=== PATIENT | male | born 1960 | race Caucasian/White ===

== ENCOUNTER 2018-02-24 15:04 | Inpatient (IN) | payer MEDICARE, MEDICAID ==
--- NOTE | 2018-02-24 15:17 | ED Physician Chart ---
ED Chief Complaint/HPI - Patient Information Date Seen:: 02/24/18 Time Seen:: 15:00 Chief Complaint:: AMS History of Present Illness:: onset x 2 days of ALOC and AMS with abnormal labs today; no report of trauma, H/ As, S/T, neck pain, C/P, SOB, Abd. Pain, A/N/V/D/C, fever, chills, or urinary s/ s Historian:: Patient, EMS Review:: Nurse's Note Reviewed, Old Chart Reviewed, EMS run form Reviewed ED Review of Systems - Review of Systems General/Constitutional: No fever, No chills, No weight loss, No weakness, No diaphoresis, No edema, No loss of appetite Skin: No skin lesions, No rash, No bruising Head: No headache, No light-headedness Eyes: No loss of vision, No pain, No diplopia ENT: No earache, No nasal drainage, No sore throat, No tinnitus Neck: No neck pain, No swelling, No thyromegaly, No stiffness, No mass noted Cardio Vascular: No chest pain, No palpitations, No PND, No orthopnea, No edema Pulmonary: No SOB, No cough, No sputum, No wheezing GI: No nausea, No vomiting, No diarrhea, No pain, No melena, No hematochezia, No constipation, No hematemesis G/U: No dysuria, No frequency, No hematuria, No nacturia Musculoskeletal: No bone or joint pain, No back pain, No muscle pain Endocrine: No polyuria, No polydipsia Psychiatric: Prior psych history, Depression, Anxiety, No suicidal ideation, No homicidal ideation, No auditory hallucination, No visual hallucination Hematopoietic: No bruising, No lymphadenopathy Allergic/Immuno: No urticaria, No angioedema Neurological: No syncope, No focal symptoms, No weakness, No paresthesia, No headache, No seizure, No dizziness, No confusion, No vertigo ED Past Medical History - Past Medical History Past Medical History: HTN, Dyslipidemia, PUD/GERD, ESRD, Seizures Family History: HTN Social History: Non Smoker, No Alcohol, No Drug Use, Single, Care Facility Surgical History: None Psychiatricy History: Schizophrenia, Bipolar Medication: Reviewed Family Medical History - Family Member Mother History Unknown: Yes ED Physical Exam - Physical Examination General/Constitutional: Awake, Well-developed, well-nourished, Alert, No distress, GCS 15, Non-toxic appearing, Ambulatory Head: Atraumatic Eyes: Lids, conjuctiva normal, PERRL, EOMI Skin: Nl inspection, No rash, No skin lesions, No ecchymosis, Well hydrated, No lymphadenopathy ENMT: External ears, nose nl, TM canals nl, Nasal exam nl, Lips, teeth, gums nl , Oropharynx nl, Tonsils nl Neck: Nontender, Full ROM w/o pain, No JVD, No nuchal rigidity, No bruit, No mass, No stridor Respiratory: Nl effort/Exclusion, Clear to Auscultation, No Wheeze/Rhonchi/Rales Cardio Vascular: RRR, No murmur, gallop, rubs, NL S1 S2, Carotid/Femoral/Distal pulses equal bilaterally GI: No tenderness/rebounding/guarding, No organomegaly, No hernia, Normal BS's, Nondistended, No mass/bruits, No McBurney tenderness, Rectum exam nl : No CVA tenderness Extremities: No tenderness or effusion, Full ROM, normal strength in all extremities, No edema, Normal digits & nails Neuro/Psych: Alert/oriented, DTR's symmetric, Normal sensory exam, Normal motor strength, Judgement/insight normal, Mood normal, Normal gait, No focal deficits Misc: Normal back, No paraspinal tenderness ED Labs/Radiology/EKG Results - Lab Results Comments:: Na+: 120; H/H: 10/31.1; U/A: + Leukocytes - Radiology Results Comments:: NAD - EKG Interpretations EKG Time:: 15:32 Rate & Rhythm: 80; NSR Comments:: non-specific st-t changes ED Septic Shock - . Is Septic Shock (SBP<90, OR Lactate>4 mmol\L) present?: No ED Reassessment (Disposition) - Reassessment Reassessment Condition:: Improved - Diagnosis Diagnosis:: Dx: Hyponatremia; Dehydration; Anemia; UTI; ALOC; AMS - Aftercare/Follow up Instructions Aftercare/Follow-Up Instructions:: Counseled pt regarding lab results/diagnosis & need follow up, Counseled pt & family regarding lab results/diagnosis & need follow up - Patient Disposition Discharge/Transfer:: Acute Care w/in this hosp Accepting Physician:: Dr. Mejia Time Called:: 1700 Time Responded:: 17:00 Admitted to:: Telemetry Spoke to:: Dr. Mejia Admitting Medical Physician:: Dr. Mejia Condition at Disposition:: Stable, Improved
[2018-02-24 15:40] LABS: % EOSINOPHILS 1.9 % (0.0-5.0); % LYMPHOCYTES 21.7 % (20.0-50.0); % MONOCYTES 6.7 % (2.0-10.0); % NEUTROPHILS 68.7 % (40.0-80.0); BASOPHILE ABSOLUTE 0.1 Th/cumm (0-0.2); EOSINOPHILE ABSOLUTE 0.2 Th/cmm (0.1-0.4); HEMATOCRIT 30.1 % (41.0-60); LYMPHOCYTE ABSOLUTE 1.8 Th/cmm (1.5-3.0); MEAN CELL VOLUME 83.4 fl (80-99); MEAN CORPUSCULAR HEMOGLOBIN 27.6 pg (26.0-30.0); MEAN CORPUSCULAR HGB CONC 33.1 pg (28.0-36.0); MONOCYTE ABSOLUTE 0.6 Th/cmm (0.3-1.0); NEUTROPHILE ABSOLUTE 5.6 Th/cmm (1.8-8.0); PLATELET COUNT 388 Th/cmm (150-400); RED BLOOD COUNT 3.61 Mil/cmm (4.30-5.70); RED CELL DISTRIBUTION WIDTH 13.7 % (11.5-20.0); WHITE BLOOD COUNT 8.3 Th/cmm (4.8-10.8)
[2018-02-24 15:53] LABS: INR 0.95 (0.5-1.4); PROTHROMBIN TIME (TEST) 9.9 SECONDS (9.5-11.5)
[2018-02-24 16:07] LABS: ALB/GLOB RATIO 1.6 (1.0-1.8); ALBUMIN 4.1 gm/dL (4.2-5.5); ALKALINE PHOSPHATASE 123 U/L (34-104); BILIRUBIN,TOTAL 0.3 mg/dL (0.3-1.0); BUN - UREA NITROGEN 24 mg/dL (7-25); CALCIUM SERUM 9.2 mg/dL (8.6-10.3); CARBON DIOXIDE 21.9 mEq/L (21.0-31.0); CHLORIDE 89 mEq/L (98-107); CREATININE - SERUM 1.5 mg/dL (0.7-1.3); CREATININE KINASE 69 U/L (30-223); GFR AFRICAN-AMERICAN > 60.0 ml/min (>90); GFR NON AFRICAN-AMERICAN 51.1 ml/min; GLUCOSE 86 mg/dL (70-105); POTASSIUM SERUM 3.9 mEq/L (3.5-5.1); SGOT 15 U/L (13-39); SGPT/ALT 11 U/L (7-52); TOTAL PROTEIN,SERUM 6.6 gm/dL (6.0-8.3)
[2018-02-24 16:26] LABS: SODIUM SERUM 120 mEq/L (136-145)
[2018-02-24 16:54] LABS: URINE MICROSCOPIC INDICATED? YES; URINE SOURCE MIDSTREAM
[2018-02-24 16:55] LABS: URINE BILIRUBIN NEGATIVE (NEGATIVE); URINE BLOOD TRACE (NEGATIVE); URINE GLUCOSE (UA) NEGATIVE (NEGATIVE); URINE KETONE NEGATIVE (NEGATIVE); URINE LEUKOCYTE ESTERASE SMALL (NEGATIVE); URINE NITRATE NEGATIVE (NEGATIVE); URINE PH 5.5 (4.6 - 8.0); URINE PROTEIN NEGATIVE (NEGATIVE); URINE UROBILINOGEN 0.2 E.U./dL (0.2 - 1.0)
[2018-02-24] MEDS ORDERED: Sodium Chloride 0.9% 1,000 ML IV ONE (16:56)
[2018-02-24 17:16] LABS: AMYLASE SERUM 61 U/L (29-103); LIPASE 35 U/L (11-82)
[2018-02-24 17:25] LABS: URINE CLARITY CLEAR (CLEAR); URINE COLOR YELLOW
[2018-02-24] MEDS ORDERED: cefTRIAXone 1 GM in Sodium Chloride 0.9% 50 ML IV ONE (17:36)
[2018-02-24] MEDS ORDERED: 0.9% NS w/20 mEq KCL 1,000 ML IV SCH (18:00)
[2018-02-24 18:42] LABS: URINE BACTERIA NONE SEEN /hpf (NONE SEEN); URINE EPITHELIAL CELLS NONE SEEN /lpf (FEW); URINE RBC 0-2 /hpf (0-5); URINE WBC 0-2 /hpf (0-5)
[2018-02-24] MEDS: D5-0.9NS w/KCL 20mEq 1,000 ML IV SCH (21:11)
[2018-02-24] MEDS ORDERED: Magnesium Hydroxide (MOM) 30 mL UDC PO PRN (21:28)
[2018-02-24] MEDS ORDERED: Non-Formulary Item 1 EA (Epoetin Alfa [Procrit] 10,000 UNIT) SUBQ SCH (21:30)
[2018-02-24] MEDS: INSULIN ASPART SLIDING SCALE 100 UNITS/ML UNIT SUBQ SCH (21:46)
--- NOTE | 2018-02-25 00:58 | History & Physical ---
ADMIT DATE: 02/24/2018 CHIEF COMPLAINT: Generalized weakness. HISTORY OF PRESENT ILLNESS: The patient is a 57-year-old male with long history of diabetes mellitus, hypertension, seizure disorder, psychosis, chronic obstructive pulmonary disease, transferred to the Emergency Room at [facility] for treatment. Initial workup was significant for hyponatremia and dehydration. The patient admitted to telemetry, started on IV fluid. The patient denies any chest pain, any shortness of breath, any nausea, vomiting, fever or chills. No dysuria, hematuria. PAST MEDICAL HISTORY: Significant for hypertension, diabetes mellitus, seizure disorder, psychosis, dementia, COPD, hyperlipidemia. PAST SURGICAL HISTORY: No recent surgery. ALLERGIES: None. MEDICATIONS: Follow admission reconciliation. SOCIAL HISTORY: Chronic smoker. No alcohol or drugs. FAMILY HISTORY: Noncontributory. REVIEW OF SYSTEMS: IMMUNE SYSTEM: No history of chronic immune disorder. CARDIOVASCULAR SYSTEM: History of hypertension. No coronary artery disease. ENDOCRINE SYSTEM: He has diabetes mellitus. No thyroid problem. GASTROINTESTINAL SYSTEM: No upper or lower GI bleeding. NEUROLOGICAL SYSTEM: He has history of seizure disorder. MUSCULOSKELETAL SYSTEM: No muscular dystrophy. HEMATOLOGICAL SYSTEM: He has chronic anemia. PHYSICAL EXAMINATION: GENERAL: He is awake, alert, mildly confused. VITAL SIGNS: Temperature 98.4, heart rate 80, blood pressure 153/77. HEENT: Normocephalic. Pupils reactive to light and accommodation. Sclerae are clear. NECK: Supple. Negative for lymphadenopathy, JVD, or bruit. CHEST: Entry of air bilaterally mildly diminished. No wheezing. HEART: S1, S2. No murmur or gallop rhythm. ABDOMEN: Soft, bowel sounds positive. EXTREMITIES: No edema. NEUROLOGIC: He is awake, alert, mildly confused. No focal motor or sensory deficits. Cranial nerves 2-12 are intact. LABORATORY DATA: White blood cells 8.3, hemoglobin 10.0, hematocrit 30.1. Sodium 120, potassium 3.9, BUN 24, creatinine 0.5. ASSESSMENT: 1. Hyponatremia. 2. Hypertension. 3. Diabetes mellitus. 4. Seizure disorder. 5. Chronic obstructive pulmonary disease. 6. Psychosis. 7. Hyperlipidemia. PLAN: The patient admitted to telemetry under Dr. Mejia's service. Start him on NS with 20 mEq at 75 mL per hour, 1800-kilocalorie diet, sliding scale with regular insulin coverage. ____ patient will resume his medication. CBC, CMP for tomorrow. ____ level in a.m. The patient is a full code. JOB# [id number]
[2018-02-25 06:38] LABS: % BASOPHILS 0.5 % (0.0-2.0); % EOSINOPHILS 1.8 % (0.0-5.0); % LYMPHOCYTES 20.3 % (20.0-50.0); % MONOCYTES 7.5 % (2.0-10.0); % NEUTROPHILS 69.9 % (40.0-80.0); EOSINOPHILE ABSOLUTE 0.1 Th/cmm (0.1-0.4); HEMATOCRIT 32.9 % (41.0-60); LYMPHOCYTE ABSOLUTE 1.6 Th/cmm (1.5-3.0); MEAN CELL VOLUME 83.1 fl (80-99); MEAN CORPUSCULAR HEMOGLOBIN 27.7 pg (26.0-30.0); MEAN CORPUSCULAR HGB CONC 33.4 pg (28.0-36.0); MEAN PLATELET VOLUME 6.8 fl; MONOCYTE ABSOLUTE 0.6 Th/cmm (0.3-1.0); NEUTROPHILE ABSOLUTE 5.6 Th/cmm (1.8-8.0); PLATELET COUNT 376 Th/cmm (150-400); RED BLOOD COUNT 3.96 Mil/cmm (4.30-5.70); WHITE BLOOD COUNT 7.9 Th/cmm (4.8-10.8)
[2018-02-25 06:57] LABS: ALB/GLOB RATIO 1.5 (1.0-1.8); ALBUMIN 4.1 gm/dL (4.2-5.5); ALKALINE PHOSPHATASE 144 U/L (34-104); ANION GAP 13.6 (7.0-16.0); BILIRUBIN,TOTAL 0.2 mg/dL (0.3-1.0); BUN - UREA NITROGEN 26 mg/dL (7-25); CALCIUM SERUM 9.4 mg/dL (8.6-10.3); CARBON DIOXIDE 20.5 mEq/L (21.0-31.0); CHLORIDE 97 mEq/L (98-107); CREATININE - SERUM 1.4 mg/dL (0.7-1.3); GFR AFRICAN-AMERICAN > 60.0 ml/min (>90); GFR NON AFRICAN-AMERICAN 55.3 ml/min; GLUCOSE 103 mg/dL (70-105); PHENYTOIN < 2.5 ug/ml (10.0-20.0); POTASSIUM SERUM 4.1 mEq/L (3.5-5.1); SGOT 14 U/L (13-39); SGPT/ALT 10 U/L (7-52); SODIUM SERUM 127 mEq/L (136-145); TOTAL PROTEIN,SERUM 6.8 gm/dL (6.0-8.3)
[2018-02-25] MEDS ORDERED: Epoetin Alfa 20000 Units/mL Vial SUBQ SCH (07:00)
--- NOTE | 2018-02-25 07:13 | Diagnostic Imaging Report ---
Portable chest x-ray History: Pain Allowing for portable technique the heart size is normal. No focal pulmonary parenchymal processes. No hilar or mediastinal abnormalities. Impression: No acute abnormalities.
[2018-02-25] MEDS ORDERED: CRANBERRY FRUIT EXTRACT PO SCH (09:00)
[2018-02-25] MEDS: INSULIN ASPART SLIDING SCALE 100 UNITS/ML UNIT SUBQ SCH ×4 (09:06→21:46)
[2018-02-25] MEDS: Lactulose 10 Gm/15 mL 30mL UDC PO SCH ×2 (09:16→16:34)
[2018-02-25] MEDS: Nicotine 21 mg/24 hr Tdm TD SCH (09:17)
[2018-02-25] MEDS: Ferrous Sulfate 325 MG TAB PO SCH (09:17)
[2018-02-25] MEDS: D5-0.9NS w/KCL 20mEq 1,000 ML IV SCH ×2 (09:33→23:12)
--- NOTE | 2018-02-25 18:52 | Internal Medicine Prog Note ---
Internal Medicine Subjective - Subjective Service Date: 02/25/18 Patient seen and examined:: without staff Patient is:: arousable, in bed Per staff patient has:: no adverse event Internal Medicine Objective - Results Result Diagrams: 02/25/18 06:04 02/25/18 06:04 Recent Labs: Laboratory Last Values WBC 7.9 Th/cmm (4.8-10.8) 02/25/18 06:04 RBC 3.96 Mil/cmm (4.30-5.70) L 02/25/18 06:04 Hgb 11.0 gm/dL (12-16) L 02/25/18 06:04 Hct 32.9 % (41.0-60) L 02/25/18 06:04 MCV 83.1 fl (80-99) 02/25/18 06:04 MCH 27.7 pg (26.0-30.0) 02/25/18 06:04 MCHC Differential 33.4 pg (28.0-36.0) 02/25/18 06:04 RDW 14.0 % (11.5-20.0) 02/25/18 06:04 Plt Count 376 Th/cmm (150-400) 02/25/18 06:04 MPV 6.8 fl 02/25/18 06:04 Neutrophils % 69.9 % (40.0-80.0) 02/25/18 06:04 Lymphocytes % 20.3 % (20.0-50.0) 02/25/18 06:04 Monocytes % 7.5 % (2.0-10.0) 02/25/18 06:04 Eosinophils % 1.8 % (0.0-5.0) 02/25/18 06:04 Basophils % 0.5 % (0.0-2.0) 02/25/18 06:04 PT 9.9 SECONDS (9.5-11.5) 02/24/18 15:30 INR 0.95 (0.5-1.4) 02/24/18 15:30 PTT (Actin FS) 26.1 SECONDS (26.0-38.0) 02/24/18 15:30 Sodium 127 mEq/L (136-145) L 02/25/18 06:04 Potassium 4.1 mEq/L (3.5-5.1) 02/25/18 06:04 Chloride 97 mEq/L (98-107) L 02/25/18 06:04 Carbon Dioxide 20.5 mEq/L (21.0-31.0) L 02/25/18 06:04 Anion Gap 13.6 (7.0-16.0) 02/25/18 06:04 BUN 26 mg/dL (7-25) H 02/25/18 06:04 Creatinine 1.4 mg/dL (0.7-1.3) H 02/25/18 06:04 Est GFR ( Amer) > 60.0 ml/min (>90) 02/25/18 06:04 Est GFR (Non-Af Amer) 55.3 ml/min 02/25/18 06:04 BUN/Creatinine Ratio 18.6 02/25/18 06:04 Glucose 103 mg/dL (70-105) 02/25/18 06:04 POC Glucose 112 MG/DL (70 - 105) H 02/25/18 16:38 Whole Bld Lactic Acid 0.44 mmol/L (0.60-1.99) L 02/24/18 15:30 Calcium 9.4 mg/dL (8.6-10.3) 02/25/18 06:04 Total Bilirubin 0.2 mg/dL (0.3-1.0) L 02/25/18 06:04 AST 14 U/L (13-39) 02/25/18 06:04 ALT 10 U/L (7-52) 02/25/18 06:04 Alkaline Phosphatase 144 U/L (34-104) H 02/25/18 06:04 Creatine Kinase 69 U/L (30-223) 02/24/18 15:30 Troponin I 0.01 ng/mL (0.01-0.05) 02/24/18 15:30 Total Protein 6.8 gm/dL (6.0-8.3) 02/25/18 06:04 Albumin 4.1 gm/dL (4.2-5.5) L 02/25/18 06:04 Globulin 2.7 gm/dL 02/25/18 06:04 Albumin/Globulin Ratio 1.5 (1.0-1.8) 02/25/18 06:04 Amylase 61 U/L (29-103) 02/24/18 15:30 Lipase 35 U/L (11-82) 02/24/18 15:30 Urine Source MIDSTREAM 02/24/18 15:42 Urine Color YELLOW 02/24/18 15:42 Urine Clarity CLEAR (CLEAR) 02/24/18 15:42 Urine pH 5.5 (4.6 - 8.0) 02/24/18 15:42 Ur Specific [place] <= 1.005 (1.005-1.030) 02/24/18 15:42 Urine Protein NEGATIVE mg/dL (NEGATIVE) 02/24/18 15:42 Urine Glucose (UA) NEGATIVE mg/dL (NEGATIVE) 02/24/18 15:42 Urine Ketones NEGATIVE mg/dL (NEGATIVE) 02/24/18 15:42 Urine Blood TRACE (NEGATIVE) 02/24/18 15:42 Urine Nitrate NEGATIVE (NEGATIVE) 02/24/18 15:42 Urine Bilirubin NEGATIVE (NEGATIVE) 02/24/18 15:42 Urine Urobilinogen 0.2 E.U./dL (0.2 - 1.0) 02/24/18 15:42 Ur Leukocyte Esterase SMALL (NEGATIVE) H 02/24/18 15:42 Urine RBC 0-2 /hpf (0-5) H 02/24/18 15:42 Urine WBC 0-2 /hpf (0-5) 02/24/18 15:42 Ur Epithelial Cells NONE SEEN /lpf (FEW) 02/24/18 15:42 Urine Bacteria NONE SEEN /hpf (NONE SEEN) 02/24/18 15:42 Phenytoin < 2.5 ug/ml (10.0-20.0) L 02/25/18 06:04 - Physical Exam Vitals and I&O: Vital Signs Temp 98.3 F 02/25/18 15:26 Pulse 91 02/25/18 16:39 Resp 18 02/25/18 15:26 BP 138/81 02/25/18 16:39 Pulse Ox 97 02/25/18 15:26 Intake & Output 02/24/18 02/25/18 02/25/18 18:59 06:59 18:59 Intake Total 1000 927.5 Output Total 1500 2350 Balance -1500 -1350 927.5 Weight (lbs) 83.461 kg 89.925 kg Intake: Intake, IV Amount 927.5 D5-0.9NS w/KCL 20mEq 1, 927.5 000 ml @ 75 mls/hr IV . [id number] [facility] Rx#:[id number] Oral 1000 Output: Urine 1500 2350 Other: # Bowel Movements 0 Weight Source Estimated Bedscale Active Medications: Current Medications Amlodipine Besylate (Norvasc) 10 mg PO DAILY [facility] Stop: 04/26/18 08:59 Last Admin: 02/25/18 09:16 Dose: 10 mg Atorvastatin Calcium (Lipitor) 10 mg PO HS [facility] Stop: 04/26/18 20:59 Clozapine (Clozaril) 100 mg PO BID [facility]; Protocol Stop: 04/26/18 08:59 Last Admin: 02/25/18 16:35 Dose: 100 mg Clozapine (Clozaril) 200 mg PO HS [facility]; Protocol Stop: 04/26/18 20:59 Docusate Sodium (Colace) 250 mg PO BID [facility] Stop: 04/26/18 08:59 Last Admin: 02/25/18 16:34 Dose: 250 mg Epoetin Pankaj (Epogen) 10,000 units SUBQ Fr@1400 [facility] Stop: 04/26/18 06:59 Ferrous Sulfate (Iron) 325 mg PO DAILY [facility] Stop: 04/26/18 08:59 Last Admin: 02/25/18 09:17 Dose: 325 mg Gemfibrozil (Lopid) 600 mg PO BID [facility] Stop: 04/26/18 08:59 Last Admin: 02/25/18 16:35 Dose: 600 mg Glipizide (Glucotrol) 5 mg PO DAILY [facility] Stop: 04/26/18 08:59 Last Admin: 02/25/18 09:17 Dose: 5 mg Haloperidol (Haldol) 5 mg PO DAILY [facility]; Protocol Stop: 04/26/18 08:59 Last Admin: 02/25/18 09:17 Dose: 5 mg Haloperidol (Haldol) 10 mg PO HS [facility]; Protocol Stop: 04/26/18 20:59 Hydralazine HCl (Apresoline) 25 mg PO TID [facility] Stop: 04/26/18 08:59 Last Admin: 02/25/18 16:39 Dose: 25 mg Potassium Chloride/Dextrose/Sod Cl (D5-0.9ns W/Kcl 20meq) 1,000 mls @ 75 mls/ hr IV .[id number] [facility] Stop: 04/25/18 20:29 Last Admin: 02/25/18 09:33 Dose: 75 mls/hr Insulin Aspart (Novolog Insulin Sliding Scale) 0 units SUBQ ACHS [facility]; Protocol Stop: 04/25/18 20:59 Last Admin: 02/25/18 16:43 Dose: Not Given Lactulose (Cephulac) 30 gm PO BID [facility] Stop: 04/26/18 08:59 Last Admin: 02/25/18 16:34 Dose: 30 gm Levetiracetam (Keppra) 500 mg PO BID [facility] Stop: 04/26/18 08:59 Last Admin: 02/25/18 16:34 Dose: 500 mg Magnesium Hydroxide (Milk Of Magnesia) 30 ml PO DAILY PRN PRN Reason: Constipation Stop: 04/25/18 21:27 Metoprolol Tartrate (Lopressor) 25 mg PO BID [facility] Stop: 04/26/18 08:59 Last Admin: 02/25/18 16:35 Dose: 25 mg Nicotine (Nicotine Transdermal System) 21 mg TD DAILY [facility] Stop: 04/26/18 08:59 Last Admin: 02/25/18 09:17 Dose: 21 mg Phenytoin (Dilantin) 100 mg PO BID [facility] Stop: 04/26/18 08:59 Last Admin: 02/25/18 16:35 Dose: 100 mg Sodium Chloride (Nacl Tab) 1 gm PO BID [facility] Stop: 04/26/18 08:59 Last Admin: 02/25/18 16:34 Dose: 1 gm Sodium Polystyrene Sulfonate (Kayexalate) 10 gm PO DAILY [facility] Stop: 04/26/18 08:59 Last Admin: 02/25/18 09:16 Dose: 10 gm General: alert HEENT: NC/AT, PERRLA, anicteric sclerae, throat clear Neck: Supple, No JVD, No thyromegaly, +2 carotid pulse wo bruit, No LAD Cardiovascular: Normal S1, Normal S2, without murmur Abdomen: non-tender Extremities: clear Neurological: no change Internal Medicine Assmt/Plan - Assessment Assessment: 1.HYPONATREMIA. 2.DM. 3.HTN. 4.PSYCHOSIS. - Plan Plan: CHEM 16 IN AM.
[2018-02-25] MEDS: Atorvastatin Calcium 10 MG TAB PO SCH (20:29)
[2018-02-26 05:46] LABS: ALB/GLOB RATIO 1.5 (1.0-1.8); ALBUMIN 4.3 gm/dL (4.2-5.5); ALKALINE PHOSPHATASE 143 U/L (34-104); ANION GAP 12.9 (7.0-16.0); BILIRUBIN,TOTAL 0.3 mg/dL (0.3-1.0); BUN - UREA NITROGEN 26 mg/dL (7-25); CARBON DIOXIDE 21.8 mEq/L (21.0-31.0); CHLORIDE 99 mEq/L (98-107); CREATININE - SERUM 1.3 mg/dL (0.7-1.3); GFR AFRICAN-AMERICAN > 60.0 ml/min (>90); GFR NON AFRICAN-AMERICAN > 60.0 ml/min; GLUCOSE 91 mg/dL (70-105); POTASSIUM SERUM 4.7 mEq/L (3.5-5.1); SGOT 14 U/L (13-39); SGPT/ALT 11 U/L (7-52); SODIUM SERUM 129 mEq/L (136-145); TOTAL PROTEIN,SERUM 7.2 gm/dL (6.0-8.3)
[2018-02-26] MEDS: INSULIN ASPART SLIDING SCALE 100 UNITS/ML UNIT SUBQ SCH ×4 (06:39→21:38)
[2018-02-26] MEDS: Nicotine 21 mg/24 hr Tdm TD SCH (08:02)
[2018-02-26] MEDS: Lactulose 10 Gm/15 mL 30mL UDC PO SCH ×2 (08:05→16:50)
[2018-02-26] MEDS: Ferrous Sulfate 325 MG TAB PO SCH (08:06)
[2018-02-26] MEDS: D5-0.9NS w/KCL 20mEq 1,000 ML IV SCH (12:37)
--- NOTE | 2018-02-26 17:11 | Internal Medicine Prog Note ---
Internal Medicine Subjective - Subjective Service Date: 02/26/18 Patient seen and examined:: with staff (HE FEELS BETTER) Patient is:: awake, verbal, in bed, talking, confused Per staff patient has:: no adverse event Internal Medicine Objective - Results Result Diagrams: 02/25/18 06:04 02/26/18 05:05 Recent Labs: Laboratory Last Values WBC 7.9 Th/cmm (4.8-10.8) 02/25/18 06:04 RBC 3.96 Mil/cmm (4.30-5.70) L 02/25/18 06:04 Hgb 11.0 gm/dL (12-16) L 02/25/18 06:04 Hct 32.9 % (41.0-60) L 02/25/18 06:04 MCV 83.1 fl (80-99) 02/25/18 06:04 MCH 27.7 pg (26.0-30.0) 02/25/18 06:04 MCHC Differential 33.4 pg (28.0-36.0) 02/25/18 06:04 RDW 14.0 % (11.5-20.0) 02/25/18 06:04 Plt Count 376 Th/cmm (150-400) 02/25/18 06:04 MPV 6.8 fl 02/25/18 06:04 Neutrophils % 69.9 % (40.0-80.0) 02/25/18 06:04 Lymphocytes % 20.3 % (20.0-50.0) 02/25/18 06:04 Monocytes % 7.5 % (2.0-10.0) 02/25/18 06:04 Eosinophils % 1.8 % (0.0-5.0) 02/25/18 06:04 Basophils % 0.5 % (0.0-2.0) 02/25/18 06:04 PT 9.9 SECONDS (9.5-11.5) 02/24/18 15:30 INR 0.95 (0.5-1.4) 02/24/18 15:30 PTT (Actin FS) 26.1 SECONDS (26.0-38.0) 02/24/18 15:30 Sodium 129 mEq/L (136-145) L 02/26/18 05:05 Potassium 4.7 mEq/L (3.5-5.1) 02/26/18 05:05 Chloride 99 mEq/L (98-107) 02/26/18 05:05 Carbon Dioxide 21.8 mEq/L (21.0-31.0) 02/26/18 05:05 Anion Gap 12.9 (7.0-16.0) 02/26/18 05:05 BUN 26 mg/dL (7-25) H 02/26/18 05:05 Creatinine 1.3 mg/dL (0.7-1.3) 02/26/18 05:05 Est GFR ( Amer) > 60.0 ml/min (>90) 02/26/18 05:05 Est GFR (Non-Af Amer) > 60.0 ml/min 02/26/18 05:05 BUN/Creatinine Ratio 20.0 02/26/18 05:05 Glucose 91 mg/dL (70-105) 02/26/18 05:05 POC Glucose 98 MG/DL (70 - 105) 02/26/18 16:37 Whole Bld Lactic Acid 0.44 mmol/L (0.60-1.99) L 02/24/18 15:30 Calcium 10.0 mg/dL (8.6-10.3) 02/26/18 05:05 Total Bilirubin 0.3 mg/dL (0.3-1.0) 02/26/18 05:05 AST 14 U/L (13-39) 02/26/18 05:05 ALT 11 U/L (7-52) 02/26/18 05:05 Alkaline Phosphatase 143 U/L (34-104) H 02/26/18 05:05 Creatine Kinase 69 U/L (30-223) 02/24/18 15:30 Troponin I 0.01 ng/mL (0.01-0.05) 02/24/18 15:30 Total Protein 7.2 gm/dL (6.0-8.3) 02/26/18 05:05 Albumin 4.3 gm/dL (4.2-5.5) 02/26/18 05:05 Globulin 2.9 gm/dL 02/26/18 05:05 Albumin/Globulin Ratio 1.5 (1.0-1.8) 02/26/18 05:05 Amylase 61 U/L (29-103) 02/24/18 15:30 Lipase 35 U/L (11-82) 02/24/18 15:30 Urine Source MIDSTREAM 02/24/18 15:42 Urine Color YELLOW 02/24/18 15:42 Urine Clarity CLEAR (CLEAR) 02/24/18 15:42 Urine pH 5.5 (4.6 - 8.0) 02/24/18 15:42 Ur Specific [place] <= 1.005 (1.005-1.030) 02/24/18 15:42 Urine Protein NEGATIVE mg/dL (NEGATIVE) 02/24/18 15:42 Urine Glucose (UA) NEGATIVE mg/dL (NEGATIVE) 02/24/18 15:42 Urine Ketones NEGATIVE mg/dL (NEGATIVE) 02/24/18 15:42 Urine Blood TRACE (NEGATIVE) 02/24/18 15:42 Urine Nitrate NEGATIVE (NEGATIVE) 02/24/18 15:42 Urine Bilirubin NEGATIVE (NEGATIVE) 02/24/18 15:42 Urine Urobilinogen 0.2 E.U./dL (0.2 - 1.0) 02/24/18 15:42 Ur Leukocyte Esterase SMALL (NEGATIVE) H 02/24/18 15:42 Urine RBC 0-2 /hpf (0-5) H 02/24/18 15:42 Urine WBC 0-2 /hpf (0-5) 02/24/18 15:42 Ur Epithelial Cells NONE SEEN /lpf (FEW) 02/24/18 15:42 Urine Bacteria NONE SEEN /hpf (NONE SEEN) 02/24/18 15:42 Phenytoin < 2.5 ug/ml (10.0-20.0) L 02/25/18 06:04 - Physical Exam Vitals and I&O: Vital Signs Temp 97.6 F 02/26/18 15:31 Pulse 102 02/26/18 17:00 Resp 18 02/26/18 15:31 BP 140/83 02/26/18 17:00 Pulse Ox 99 02/26/18 15:31 Intake & Output 02/25/18 02/26/18 02/26/18 18:59 06:59 18:59 Intake Total 927.5 3000 1000 Output Total 3500 Balance 927.5 -500 1000 Weight (lbs) 89.556 kg 89.358 kg Intake: Intake, IV Amount 927.5 1000 1000 D5-0.9NS w/KCL 20mEq 1, 927.5 1000 1000 000 ml @ 75 mls/hr IV . [id number] [facility] Rx#:[id number] Oral 2000 Output: Urine 3500 Other: # Bowel Movements 1 Weight Source Bedscale Bedscale Active Medications: Current Medications Amlodipine Besylate (Norvasc) 10 mg PO DAILY [facility] Stop: 04/26/18 08:59 Last Admin: 02/26/18 08:12 Dose: 10 mg Atorvastatin Calcium (Lipitor) 10 mg PO [facility] Stop: 04/26/18 20:59 Last Admin: 02/25/18 20:29 Dose: 10 mg Clozapine (Clozaril) 100 mg PO BID [facility]; Protocol Stop: 04/26/18 08:59 Last Admin: 02/26/18 16:52 Dose: 100 mg Clozapine (Clozaril) 200 mg PO HS [facility]; Protocol Stop: 04/26/18 20:59 Last Admin: 02/25/18 23:15 Dose: Not Given Docusate Sodium (Colace) 250 mg PO BID [facility] Stop: 04/26/18 08:59 Last Admin: 02/26/18 16:50 Dose: 250 mg Epoetin Pankaj (Epogen) 10,000 units SUBQ Fr@1400 [facility] Stop: 04/26/18 06:59 Ferrous Sulfate (Iron) 325 mg PO DAILY [facility] Stop: 04/26/18 08:59 Last Admin: 02/26/18 08:06 Dose: 325 mg Gemfibrozil (Lopid) 600 mg PO BID [facility] Stop: 04/26/18 08:59 Last Admin: 02/26/18 16:50 Dose: 600 mg Glipizide (Glucotrol) 5 mg PO DAILY [facility] Stop: 04/26/18 08:59 Last Admin: 02/26/18 08:06 Dose: 5 mg Haloperidol (Haldol) 5 mg PO DAILY [facility]; Protocol Stop: 04/26/18 08:59 Last Admin: 02/26/18 08:08 Dose: 5 mg Haloperidol (Haldol) 10 mg PO HS [facility]; Protocol Stop: 04/26/18 20:59 Last Admin: 02/25/18 20:29 Dose: 10 mg Hydralazine HCl (Apresoline) 25 mg PO TID [facility] Stop: 04/26/18 08:59 Last Admin: 02/26/18 13:46 Dose: 25 mg Potassium Chloride/Dextrose/Sod Cl (D5-0.9ns W/Kcl 20meq) 1,000 mls @ 75 mls/ hr IV .[id number] [facility] Stop: 04/25/18 20:29 Last Admin: 02/26/18 12:37 Dose: 75 mls/hr Insulin Aspart (Novolog Insulin Sliding Scale) 0 units SUBQ ACHS [facility]; Protocol Stop: 04/25/18 20:59 Last Admin: 02/26/18 17:01 Dose: Not Given Lactulose (Cephulac) 30 gm PO BID [facility] Stop: 04/26/18 08:59 Last Admin: 02/26/18 16:50 Dose: 30 gm Levetiracetam (Keppra) 500 mg PO BID [facility] Stop: 04/26/18 08:59 Last Admin: 02/26/18 16:59 Dose: 500 mg Magnesium Hydroxide (Milk Of Magnesia) 30 ml PO DAILY PRN PRN Reason: Constipation Stop: 04/25/18 21:27 Metoprolol Tartrate (Lopressor) 25 mg PO BID [facility] Stop: 04/26/18 08:59 Last Admin: 02/26/18 17:00 Dose: 25 mg Nicotine (Nicotine Transdermal System) 21 mg TD DAILY [facility] Stop: 04/26/18 08:59 Last Admin: 02/26/18 08:02 Dose: 21 mg Phenytoin (Dilantin) 100 mg PO BID [facility] Stop: 04/26/18 08:59 Last Admin: 02/26/18 16:59 Dose: 100 mg Sodium Chloride (Nacl Tab) 1 gm PO BID [facility] Stop: 04/26/18 08:59 Last Admin: 02/26/18 16:59 Dose: 1 gm Sodium Polystyrene Sulfonate (Kayexalate) 10 gm PO DAILY [facility] Stop: 04/26/18 08:59 Last Admin: 02/26/18 08:20 Dose: 10 gm General: alert HEENT: NC/AT, PERRLA, anicteric sclerae, throat clear Neck: Supple, No JVD, No thyromegaly, +2 carotid pulse wo bruit, No LAD Cardiovascular: Normal S1, Normal S2, without murmur Abdomen: non-tender Extremities: clear Neurological: no change Internal Medicine Assmt/Plan - Assessment Assessment: 1.HYPONATREMIA. 2.DM. 3.HTN. 4.PSYCHOSIS. - Plan Plan: CONSULT .
[2018-02-26] MEDS: Atorvastatin Calcium 10 MG TAB PO SCH (21:36)
[2018-02-27] MEDS: D5-0.9NS w/KCL 20mEq 1,000 ML IV SCH (01:38)
--- NOTE | 2018-02-27 06:51 | Consultation ---
DATE OF CONSULTATION: 02/27/2018 PSYCHIATRIC CONSULT PATIENT'S AGE: 57. SEX: Male. PHYSICIAN: Dr. Mejia. BUTTON SEWER HAND: Jordan Pradhan MD, MPH TYPE OF THE REPORT: Psychiatric consult. REASON FOR THE CONSULT: Psychosis and hallucinations. HISTORY OF PRESENT ILLNESS: The patient is a 57-year-old male with history of what seems to be schizophrenia. The patient was admitted to the hospital because of increased agitation and irritability from [facility] and because of increased psychosis. Chart reviewed and the patient interviewed. Also discussed the patient's condition with the staff and reviewed records and labs. The patient has been thinking that "The world is coming into end." He also has been increasingly paranoid and suspicious. The patient also has been easily agitated and irritable. He also has been restless and has been having difficulty with his sleep and his energy. PAST PSYCHIATRIC HISTORY: The patient has long history of psychosis and what seems to be schizophrenia. PAST MEDICAL HISTORY: As per Dr. Mejia. SOCIAL HISTORY: The patient lives in [facility]. The patient is single, never and has no children. He denies alcohol or any street drug use. ALLERGIES: No known allergies. MENTAL STATUS EXAM: The patient appears slightly older than his stated age. Anxious. Flat affect. In a depressed mood, periods of agitation and irritability. The patient denies any auditory hallucinations or visual hallucinations, but admits to being paranoid and delusional. He denies any suicidal or homicidal ideations. The patient is alert and oriented to time, place, person, and situation. Intact immediate, recent and remote memories. Fair insight. Fair judgment. Seems to be of average intelligence based on his verbal ability. ASSESSMENT: PRIMARY DIAGNOSIS: Chronic paranoid schizophrenia with acute exacerbation. TREATMENT PLAN: The patient currently is on Haldol. The patient said that he used to take Abilify that was helping him more. We will start the patient on Abilify 10 mg every day and will adjust the dose. The patient also is a candidate for Geropsych unit. Thanks to Dr. Mejia and we will follow up with you. JOB# [id number]
[2018-02-27] MEDS: INSULIN ASPART SLIDING SCALE 100 UNITS/ML UNIT SUBQ SCH ×2 (06:58→12:45)
[2018-02-27 07:04] LABS: ALB/GLOB RATIO 1.5 (1.0-1.8); ALBUMIN 3.9 gm/dL (4.2-5.5); ALKALINE PHOSPHATASE 128 U/L (34-104); ANION GAP 9.9 (7.0-16.0); BILIRUBIN,TOTAL 0.2 mg/dL (0.3-1.0); BUN - UREA NITROGEN 24 mg/dL (7-25); CALCIUM SERUM 9.7 mg/dL (8.6-10.3); CHLORIDE 103 mEq/L (98-107); CREATININE - SERUM 1.4 mg/dL (0.7-1.3); GFR AFRICAN-AMERICAN > 60.0 ml/min (>90); GFR NON AFRICAN-AMERICAN 55.3 ml/min; GLUCOSE 95 mg/dL (70-105); POTASSIUM SERUM 4.9 mEq/L (3.5-5.1); SGOT 13 U/L (13-39); SGPT/ALT 9 U/L (7-52); SODIUM SERUM 132 mEq/L (136-145); TOTAL PROTEIN,SERUM 6.5 gm/dL (6.0-8.3)
[2018-02-27] MEDS: Lactulose 10 Gm/15 mL 30mL UDC PO SCH (08:55)
[2018-02-27] MEDS: Nicotine 21 mg/24 hr Tdm TD SCH (08:56)
[2018-02-27] MEDS: Ferrous Sulfate 325 MG TAB PO SCH (08:57)
[2018-02-27] MEDS ORDERED: Epoetin Alfa 20000 Units/mL Vial SUBQ SCH (14:00)
--- NOTE | 2018-02-27 15:15 | Internal Medicine Prog Note ---
Internal Medicine Subjective - Subjective Service Date: 02/27/18 Patient seen and examined:: with staff (HE FEELS BETTER) Patient is:: awake, verbal, in bed, talking, confused Per staff patient has:: no adverse event Internal Medicine Objective - Results Result Diagrams: 02/25/18 06:04 02/27/18 05:42 Recent Labs: Laboratory Last Values WBC 7.9 Th/cmm (4.8-10.8) 02/25/18 06:04 RBC 3.96 Mil/cmm (4.30-5.70) L 02/25/18 06:04 Hgb 11.0 gm/dL (12-16) L 02/25/18 06:04 Hct 32.9 % (41.0-60) L 02/25/18 06:04 MCV 83.1 fl (80-99) 02/25/18 06:04 MCH 27.7 pg (26.0-30.0) 02/25/18 06:04 MCHC Differential 33.4 pg (28.0-36.0) 02/25/18 06:04 RDW 14.0 % (11.5-20.0) 02/25/18 06:04 Plt Count 376 Th/cmm (150-400) 02/25/18 06:04 MPV 6.8 fl 02/25/18 06:04 Neutrophils % 69.9 % (40.0-80.0) 02/25/18 06:04 Lymphocytes % 20.3 % (20.0-50.0) 02/25/18 06:04 Monocytes % 7.5 % (2.0-10.0) 02/25/18 06:04 Eosinophils % 1.8 % (0.0-5.0) 02/25/18 06:04 Basophils % 0.5 % (0.0-2.0) 02/25/18 06:04 PT 9.9 SECONDS (9.5-11.5) 02/24/18 15:30 INR 0.95 (0.5-1.4) 02/24/18 15:30 PTT (Actin FS) 26.1 SECONDS (26.0-38.0) 02/24/18 15:30 Sodium 132 mEq/L (136-145) L 02/27/18 05:42 Potassium 4.9 mEq/L (3.5-5.1) 02/27/18 05:42 Chloride 103 mEq/L (98-107) 02/27/18 05:42 Carbon Dioxide 24.0 mEq/L (21.0-31.0) 02/27/18 05:42 Anion Gap 9.9 (7.0-16.0) 02/27/18 05:42 BUN 24 mg/dL (7-25) 02/27/18 05:42 Creatinine 1.4 mg/dL (0.7-1.3) H 02/27/18 05:42 Est GFR ( Amer) > 60.0 ml/min (>90) 02/27/18 05:42 Est GFR (Non-Af Amer) 55.3 ml/min 02/27/18 05:42 BUN/Creatinine Ratio 17.1 02/27/18 05:42 Glucose 95 mg/dL (70-105) 02/27/18 05:42 POC Glucose 70 MG/DL (70 - 105) 02/27/18 12:24 Whole Bld Lactic Acid 0.44 mmol/L (0.60-1.99) L 02/24/18 15:30 Calcium 9.7 mg/dL (8.6-10.3) 02/27/18 05:42 Total Bilirubin 0.2 mg/dL (0.3-1.0) L 02/27/18 05:42 AST 13 U/L (13-39) 02/27/18 05:42 ALT 9 U/L (7-52) 02/27/18 05:42 Alkaline Phosphatase 128 U/L (34-104) H 02/27/18 05:42 Creatine Kinase 69 U/L (30-223) 02/24/18 15:30 Troponin I 0.01 ng/mL (0.01-0.05) 02/24/18 15:30 Total Protein 6.5 gm/dL (6.0-8.3) 02/27/18 05:42 Albumin 3.9 gm/dL (4.2-5.5) L 02/27/18 05:42 Globulin 2.6 gm/dL 02/27/18 05:42 Albumin/Globulin Ratio 1.5 (1.0-1.8) 02/27/18 05:42 Amylase 61 U/L (29-103) 02/24/18 15:30 Lipase 35 U/L (11-82) 02/24/18 15:30 Urine Source MIDSTREAM 02/24/18 15:42 Urine Color YELLOW 02/24/18 15:42 Urine Clarity CLEAR (CLEAR) 02/24/18 15:42 Urine pH 5.5 (4.6 - 8.0) 02/24/18 15:42 Ur Specific Vincent <= 1.005 (1.005-1.030) 02/24/18 15:42 Urine Protein NEGATIVE mg/dL (NEGATIVE) 02/24/18 15:42 Urine Glucose (UA) NEGATIVE mg/dL (NEGATIVE) 02/24/18 15:42 Urine Ketones NEGATIVE mg/dL (NEGATIVE) 02/24/18 15:42 Urine Blood TRACE (NEGATIVE) 02/24/18 15:42 Urine Nitrate NEGATIVE (NEGATIVE) 02/24/18 15:42 Urine Bilirubin NEGATIVE (NEGATIVE) 02/24/18 15:42 Urine Urobilinogen 0.2 E.U./dL (0.2 - 1.0) 02/24/18 15:42 Ur Leukocyte Esterase SMALL (NEGATIVE) H 02/24/18 15:42 Urine RBC 0-2 /hpf (0-5) H 02/24/18 15:42 Urine WBC 0-2 /hpf (0-5) 02/24/18 15:42 Ur Epithelial Cells NONE SEEN /lpf (FEW) 02/24/18 15:42 Urine Bacteria NONE SEEN /hpf (NONE SEEN) 02/24/18 15:42 Phenytoin < 2.5 ug/ml (10.0-20.0) L 02/25/18 06:04 - Physical Exam Vitals and I&O: Vital Signs Temp 97.4 F 02/27/18 12:10 Pulse 81 02/27/18 13:54 Resp 17 02/27/18 12:42 BP 134/76 02/27/18 13:54 Pulse Ox 98 02/27/18 12:10 Intake & Output 02/26/18 02/27/18 02/27/18 18:59 06:59 18:59 Intake Total 1000 1456.25 Output Total 2500 Balance 1000 -1043.75 Weight (lbs) 89.358 kg 87.362 kg Intake: Intake, IV Amount 1000 976.25 D5-0.9NS w/KCL 20mEq 1, 1000 976.25 000 ml @ 75 mls/hr IV . [id number] [facility] Rx#:[id number] Oral 480 Output: Urine 2500 Other: # Bowel Movements 0 Weight Source Bedscale Bedscale Active Medications: Current Medications Amlodipine Besylate (Norvasc) 10 mg PO DAILY [facility] Stop: 04/26/18 08:59 Last Admin: 02/27/18 08:56 Dose: 10 mg Aripiprazole (Abilify) 10 mg PO HS [facility]; Protocol Stop: 04/28/18 20:59 Atorvastatin Calcium (Lipitor) 10 mg PO [facility] Stop: 04/26/18 20:59 Last Admin: 02/26/18 21:36 Dose: 10 mg Clozapine (Clozaril) 100 mg PO BID [facility]; Protocol Stop: 04/26/18 08:59 Last Admin: 02/27/18 09:07 Dose: 100 mg Clozapine (Clozaril) 200 mg PO HS [facility]; Protocol Stop: 04/26/18 20:59 Last Admin: 02/26/18 21:37 Dose: 200 mg Docusate Sodium (Colace) 250 mg PO BID [facility] Stop: 04/26/18 08:59 Last Admin: 02/27/18 08:56 Dose: 250 mg Epoetin Pankaj (Epogen) 10,000 units SUBQ Fr@1400 [facility] Stop: 04/26/18 06:59 Ferrous Sulfate (Iron) 325 mg PO DAILY [facility] Stop: 04/26/18 08:59 Last Admin: 02/27/18 08:57 Dose: 325 mg Gemfibrozil (Lopid) 600 mg PO BID [facility] Stop: 04/26/18 08:59 Last Admin: 02/27/18 08:55 Dose: 600 mg Glipizide (Glucotrol) 5 mg PO DAILY [facility] Stop: 04/26/18 08:59 Last Admin: 02/27/18 08:55 Dose: 5 mg Haloperidol (Haldol) 5 mg PO DAILY [facility]; Protocol Stop: 04/26/18 08:59 Last Admin: 02/27/18 08:55 Dose: 5 mg Haloperidol (Haldol) 10 mg PO HS [facility]; Protocol Stop: 04/26/18 20:59 Last Admin: 02/26/18 21:37 Dose: 10 mg Hydralazine HCl (Apresoline) 25 mg PO TID [facility] Stop: 04/26/18 08:59 Last Admin: 02/27/18 13:54 Dose: 25 mg Potassium Chloride/Dextrose/Sod Cl (D5-0.9ns W/Kcl 20meq) 1,000 mls @ 75 mls/ hr IV .[id number] [facility] Stop: 04/25/18 20:29 Last Admin: 02/27/18 01:38 Dose: 75 mls/hr Insulin Aspart (Novolog Insulin Sliding Scale) 0 units SUBQ ACHS [facility]; Protocol Stop: 04/25/18 20:59 Last Admin: 02/27/18 12:45 Dose: Not Given Lactulose (Cephulac) 30 gm PO BID [facility] Stop: 04/26/18 08:59 Last Admin: 02/27/18 08:55 Dose: 30 gm Levetiracetam (Keppra) 500 mg PO BID [facility] Stop: 04/26/18 08:59 Last Admin: 02/27/18 08:56 Dose: 500 mg Magnesium Hydroxide (Milk Of Magnesia) 30 ml PO DAILY PRN PRN Reason: Constipation Stop: 04/25/18 21:27 Metoprolol Tartrate (Lopressor) 25 mg PO BID [facility] Stop: 04/26/18 08:59 Last Admin: 02/27/18 08:55 Dose: 25 mg Nicotine (Nicotine Transdermal System) 21 mg TD DAILY [facility] Stop: 04/26/18 08:59 Last Admin: 02/27/18 08:56 Dose: 21 mg Phenytoin (Dilantin) 100 mg PO BID [facility] Stop: 04/26/18 08:59 Last Admin: 02/27/18 08:56 Dose: 100 mg Sodium Chloride (Nacl Tab) 1 gm PO BID [facility] Stop: 04/26/18 08:59 Last Admin: 02/27/18 08:55 Dose: 1 gm Sodium Polystyrene Sulfonate (Kayexalate) 10 gm PO DAILY [facility] Stop: 04/26/18 08:59 Last Admin: 02/27/18 08:53 Dose: 10 gm General: alert HEENT: NC/AT, PERRLA, anicteric sclerae, throat clear Neck: Supple, No JVD, No thyromegaly, +2 carotid pulse wo bruit, No LAD Cardiovascular: Normal S1, Normal S2, without murmur Abdomen: non-tender Extremities: clear Neurological: no change Internal Medicine Assmt/Plan - Assessment Assessment: 1.HYPONATREMIA. 2.DM. 3.HTN. 4.PSYCHOSIS. - Plan Plan: HE IS CLEAR TO GO TO [facility].
[2018-02-27] MEDS ORDERED: D5-0.9%NS 1,000 ML IV SCH (15:45)
== END 2018-02-27 16:23 | DRG 70 ==
LOC: ER 15:04 → TELE 17:29
PROVIDERS: ADMIT Family Medicine; ATTEND Family Medicine
DX: G93.41 Metabolic encephalopathy (principal); N18.6 End stage renal disease; E87.1 Hypo-osmolality and hyponatremia; F20.0 Paranoid schizophrenia; I12.0 Hypertensive chronic kidney disease with stage 5 chronic kidney disease or end stage renal disease; N39.0 Urinary tract infection, site not specified; G40.909 Epilepsy, unspecified, not intractable, without status epilepticus; J44.9 Chronic obstructive pulmonary disease, unspecified; F29 Unspecified psychosis not due to a substance or known physiological condition; E78.5 Hyperlipidemia, unspecified; K21.9 Gastro-esophageal reflux disease without esophagitis; E11.22 Type 2 diabetes mellitus with diabetic chronic kidney disease; E86.0 Dehydration; D64.9 Anemia, unspecified; F03.90 Unspecified dementia, unspecified severity, without behavioral disturbance, psychotic disturbance, mood disturbance, and anxiety; Z82.49 Family history of ischemic heart disease and other diseases of the circulatory system
CPT/HCPCS: 36415-UA; 71045-TC; 80053-TC; 80185-TC; 81001-TC; 82150-TC; 82550-TC; 82948-90; 83605; 83690-TC; 84484-TC; 85025-TC; 85610-TC; 85730-TC; 87086-90; 93005; J0696; J0885; J1815; J3480; Z7610

== ENCOUNTER 2018-02-27 16:44 | Inpatient (IN) | payer MEDICARE, MEDICAID ==
[2018-02-27 17:20] VITALS: BP 159/66
[2018-02-27] MEDS ORDERED: Magnesium Hydroxide (MOM) 30 mL UDC PO PRN (17:54)
[2018-02-27] MEDS ORDERED: CRANBERRY FRUIT EXTRACT PO SCH (21:00)
[2018-02-27] MEDS: Atorvastatin Calcium 10 MG TAB PO SCH (21:28)
[2018-02-27] MEDS: INSULIN ASPART SLIDING SCALE 100 UNITS/ML UNIT SUBQ SCH (22:01)
[2018-02-28] MEDS: INSULIN ASPART SLIDING SCALE 100 UNITS/ML UNIT SUBQ SCH ×4 (06:34→21:21)
[2018-02-28] MEDS: Lactulose 10 Gm/15 mL 30mL UDC PO SCH ×2 (08:55→16:22)
[2018-02-28] MEDS: Ferrous Sulfate 325 MG TAB PO SCH (08:57)
[2018-02-28] MEDS ORDERED: [UNRECOGNIZED DRUG - OTHER] PO SCH (09:00)
--- NOTE | 2018-02-28 13:34 | History & Physical ---
ADMIT DATE: 02/27/2018 IDENTIFYING INFORMATION: The patient is a 57-year-old male. CHIEF COMPLAINT: "I came because I have ____ sodium chloride. HISTORY OF PRESENT ILLNESS: The patient was admitted with a history of schizophrenia. The patient came from a [facility]. He is with a history of psychosis, unable to give information. He is confused. Unable to tell me the date, though he was able to tell me his age and date of . He was internally preoccupied, looking disheveled, disorganized. PAST PSYCHIATRIC HISTORY: It seems to be schizophrenia; however, the patient himself denies prior psychiatric treatment. Denies prior suicide attempt. The patient denies substance abuse. MEDICAL HISTORY: The patient has no known drug allergies. He is anemic, diabetic, hypertension. MEDICATIONS: The patient has been on Haldol 10 mg at bedtime and 5 mg daily. He is also on Clozaril 100 mg tablet twice a day and 200 mg at bedtime; however, the patient has no idea about none of this, is a poor historian. The patient also has hypertension and hyperlipidemia. He is on amlodipine, atorvastatin, iron. FAMILY AND SOCIAL HISTORY: The patient was single, never , no children. He has 15 years of education. 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 He has been using cocaine and unable to tell me how long he has been using cocaine. He reportedly has no family, lives in a [facility]. No family psychotic disorder. No history of abuse reported. However, the patient is a poor historian. ADDENDUM MENTAL STATUS EXAMINATION: The patient is appropriately dressed, not well groomed. He was confused. His affect is flat. Thoughts are concrete. Speech is coherent, he was alert. He knew he was 57 years of age and could not tell me the date, where he is, why he is here, believe he is here because he did have low sodium chloride. Apparently, he lives in a board and care, was agitated, unpredictable, out of control, hard to redirect and impulsive. He reports that he sleeps well, eats well. However, he is a poor historian. His longer and short term memory is poor, unable to tell me previous events, sure that the same events led to him to admission. He denies any current intent to harm himself or anybody or any hallucinations, though he appeared to be internally preoccupied with a history of schizophrenia. He is not a good historian. He denies that he wants to harm himself or anybody. His insight and judgment is impaired. IMPRESSION: AXIS I: Schizophrenia, unspecified; rule out bipolar disorder with psychosis. He has cocaine abuse. MEDICAL DIAGNOSES: Hyperlipidemia, hypertension, diabetes mellitus, anemia. His assets, he wants to get help. Negative for coping skills. INITIAL TREATMENT PLAN: The patient will be continued on medication. We will do group therapy, milieu therapy and individual therapy. ESTIMATED LENGTH OF STAY: 3-7 days. DISCHARGE CRITERIA: Decreased psychosis, agitation. After discharge, outpatient. [facility]# [id number]
--- NOTE | 2018-02-28 17:10 | History & Physical ---
ADMIT DATE: 02/27/2018 HISTORY OF PRESENT ILLNESS: The patient is a 57-year-old male with long history of hypertension, diabetes mellitus, seizure disorder, dementia, admitted to [facility] medical floor with severe hyponatremia. During hospitalization, the patient was seen by professor of business, stabilized clinically, transferred to [facility]. The patient feels better. No chest pain or distress. No nausea, no vomiting. PAST MEDICAL HISTORY: Significant for hypertension, hyperlipidemia, diabetes mellitus, seizure disorder, dementia, benign prostatic hypertrophy. PAST SURGICAL HISTORY: Suprapubic catheter placement. ALLERGIES: None. MEDICATIONS: Follow admission reconciliation. SOCIAL HISTORY: ____ smoking. No drug. No alcohol. FAMILY HISTORY: Noncontributory. REVIEW OF SYSTEMS: RENAL SYSTEM: No history of chronic renal disorder. CARDIOVASCULAR SYSTEM: No coronary artery disease. ENDOCRINE: He has history of diabetes mellitus. GASTROINTESTINAL SYSTEM: No upper or lower GI bleeding. NEUROLOGICAL SYSTEM: No seizures. He has history of seizure disorder. MUSCULOSKELETAL: No muscular dystrophy. HEMATOLOGIC SYSTEM: No bleeding tendencies. RESPIRATORY SYSTEM: No asthma. GENITOURINARY SYSTEM: He has benign prostatic hypertrophy. PHYSICAL EXAMINATION: GENERAL: He is awake, alert, mildly confused. VITAL SIGNS: Temperature 98, heart rate 83, blood pressure 145/74. HEENT: Normocephalic. Pupils reactive to light and accommodation. Sclerae clear. NECK: Supple. Negative for lymphadenopathy, JVD or bruit. CHEST: Entry of air bilaterally normal. No rales, rhonchi or wheezing. HEART: S1, S2. No murmur or gallop rhythm. ABDOMEN: Soft. Bowel sounds are positive. EXTREMITIES: No edema. NEUROLOGIC: He is awake, alert, not fully oriented. No motor or sensory deficit. ASSESSMENT: 1. Hypertension. 2. Diabetes mellitus. 3. Seizure disorder. 4. Hyperlipidemia. 5. Dementia. PLAN: The patient admitted to [facility] at [facility] under Dr. Pradhan's service. Medical problem to address during hospitalization is dementia. Medical problems to address at discharge are hypertension, diabetes mellitus, and seizure disorder. The patient is medically stable for activity. Thank you Dr. Pradhan for asking me to see your patient. JOB# [id number]
[2018-02-28] MEDS: Atorvastatin Calcium 10 MG TAB PO SCH (21:21)
[2018-03-01] MEDS: INSULIN ASPART SLIDING SCALE 100 UNITS/ML UNIT SUBQ SCH ×4 (06:38→20:41)
[2018-03-01] MEDS: Ferrous Sulfate 325 MG TAB PO SCH (09:11)
[2018-03-01] MEDS: Lactulose 10 Gm/15 mL 30mL UDC PO SCH ×2 (09:15→16:49)
--- NOTE | 2018-03-01 13:41 | Internal Medicine Prog Note ---
Internal Medicine Subjective - Subjective Service Date: 03/01/18 Patient seen and examined:: with staff Patient is:: awake, verbal, confused Per staff patient has:: no adverse event Internal Medicine Objective - Results Recent Labs: Laboratory Last Values POC Glucose 98 MG/DL (70 - 105) 03/01/18 12:13 - Physical Exam Vitals and I&O: Vital Signs Temp 97.5 F 03/01/18 06:46 Pulse 95 03/01/18 13:27 Resp 20 03/01/18 06:46 BP 125/86 03/01/18 13:27 Pulse Ox 97 03/01/18 06:46 Intake & Output 02/28/18 03/01/18 03/01/18 18:59 06:59 18:59 Intake Total 1200 120 Output Total 800 750 Balance 400 -630 Intake: Oral 1200 120 Output: Urine 800 750 Other: # Bowel Movements 1 Active Medications: Current Medications Acetaminophen (Tylenol) 650 mg PO Q4H PRN PRN Reason: Mild Pain / Temp above 100 Stop: 04/29/18 04:14 Last Admin: 02/28/18 04:38 Dose: 650 mg Amlodipine Besylate (Norvasc) 10 mg PO DAILY [facility] Stop: 04/29/18 08:59 Last Admin: 03/01/18 09:10 Dose: 10 mg Atorvastatin Calcium (Lipitor) 10 mg PO HS [facility] Stop: 04/28/18 20:59 Last Admin: 02/28/18 21:21 Dose: 10 mg Clozapine (Clozaril) mg PO BID [facility]; Protocol Stop: 04/29/18 08:59 Clozapine (Clozaril) mg PO HS [facility]; Protocol Stop: 04/28/18 20:59 Docusate Sodium (Colace) 250 mg PO BID [facility] Stop: 04/29/18 08:59 Last Admin: 03/01/18 09:10 Dose: 250 mg Ferrous Sulfate (Iron) 325 mg PO DAILY [facility] Stop: 04/29/18 08:59 Last Admin: 03/01/18 09:11 Dose: 325 mg Gemfibrozil (Lopid) 600 mg PO BID [facility] Stop: 04/29/18 08:59 Last Admin: 03/01/18 09:11 Dose: 600 mg Glipizide (Glucotrol) 5 mg PO DAILY [facility] Stop: 04/29/18 08:59 Last Admin: 03/01/18 09:12 Dose: 5 mg Haloperidol (Haldol) 5 mg PO DAILY [facility]; Protocol Stop: 04/29/18 08:59 Last Admin: 03/01/18 09:11 Dose: 5 mg Haloperidol (Haldol) 10 mg PO HS [facility]; Protocol Stop: 04/28/18 20:59 Last Admin: 02/28/18 21:21 Dose: 10 mg Hydralazine HCl (Apresoline) 25 mg PO TID [facility] Stop: 04/28/18 20:59 Last Admin: 03/01/18 13:27 Dose: 25 mg Insulin Aspart (Novolog Insulin Sliding Scale) 0 units SUBQ ACHS [facility]; Protocol Stop: 04/28/18 20:59 Last Admin: 03/01/18 12:17 Dose: Not Given Lactulose (Cephulac) 30 gm PO BID [facility] Stop: 04/29/18 08:59 Last Admin: 03/01/18 09:15 Dose: Not Given Levetiracetam (Keppra) 500 mg PO BID [facility] Stop: 04/29/18 08:59 Last Admin: 03/01/18 09:11 Dose: 500 mg Lorazepam (Ativan) 0.5 mg PO Q4H PRN; Protocol PRN Reason: Anxiety Stop: 04/28/18 18:01 Last Admin: 02/28/18 21:21 Dose: 0.5 mg Magnesium Hydroxide (Milk Of Magnesia) 30 ml PO DAILY PRN PRN Reason: Constipation Stop: 04/28/18 17:53 Metoprolol Tartrate (Lopressor) 25 mg PO BID [facility] Stop: 04/29/18 08:59 Last Admin: 03/01/18 09:11 Dose: 25 mg Miscellaneous (Epoetin Pankaj [Procrit]) 10,000 unit SUBQ QWEEK 0730 [facility] Stop: 04/28/18 17:59 Miscellaneous (Sodium Polystyrene Sulfon/Sorb [Kionex 15 Gm/60 Ml Suspension]) 40 ml PO DAILY [facility] Stop: 04/29/18 08:59 Phenytoin (Dilantin) 100 mg PO BID [facility] Stop: 04/29/18 08:59 Last Admin: 03/01/18 09:11 Dose: 100 mg Sodium Chloride (Nacl Tab) 1 gm PO BID [facility] Stop: 04/29/18 08:59 Last Admin: 03/01/18 09:12 Dose: 1 gm Zolpidem Tartrate (Ambien) 5 mg PO HS PRN PRN Reason: Insomnia Stop: 04/28/18 18:01 Last Admin: 02/27/18 21:28 Dose: 5 mg General: demented HEENT: NC/AT, PERRLA, anicteric sclerae, throat clear Neck: Supple, No JVD, No thyromegaly, +2 carotid pulse wo bruit, No LAD Cardiovascular: Normal S1, Normal S2, without murmur Abdomen: soft, non-tender, non-distended Neurological: no change Internal Medicine Assmt/Plan - Assessment Assessment: 1.htn. 2.dm. 3.hyperlipidemia. 4.dementia. - Plan Plan: continue on current medication and diet.
[2018-03-01] MEDS: Atorvastatin Calcium 10 MG TAB PO SCH (20:40)
--- NOTE | 2018-03-01 20:50 | Progress Notes ---
DATE: 03/01/2018 Case was discussed with staff of the patient, reviewed records. The patient continues to be internally preoccupied, unpredictable, impulsive, needing redirection. He is sleeping well, eating well. He is compliant with the medication with no side effects. He is supposed to be on Clozaril and Haldol. Unable to make safe plan for self-care. Continues to be psychotic and we will continue to work with the patient in group therapy, milieu therapy, and adjust the medication as needed. JOB# [id number]
[2018-03-02] MEDS: INSULIN ASPART SLIDING SCALE 100 UNITS/ML UNIT SUBQ SCH ×4 (06:44→21:09)
--- NOTE | 2018-03-02 06:58 | Progress Notes ---
DATE: SUBJECTIVE: Chart reviewed and the patient interviewed. Also discussed the patient's condition with the staff and reviewed records and labs. The patient is confused. He is forgetful. Also thought processes are circumstantial and tangential with flight of ideas and disorganized thoughts. The patient also is demanding and is withdrawn. Otherwise, the patient is compliant with taking Clozaril and Haldol with no side effects. ASSESSMENT: The patient is still agitated and psychotic. TREATMENT PLAN: Continue to monitor his behavior and work on behavioral modification. Also, continue adjusting psychotropic medications and follow up closely. JOB# [id number]
[2018-03-02] MEDS: Lactulose 10 Gm/15 mL 30mL UDC PO SCH ×2 (08:50→16:35)
[2018-03-02] MEDS: Ferrous Sulfate 325 MG TAB PO SCH (08:52)
[2018-03-02] MEDS ORDERED: Epoetin Alfa 20000 Units/mL Vial SUBQ SCH (10:00)
--- NOTE | 2018-03-02 18:21 | Internal Medicine Prog Note ---
Internal Medicine Subjective - Subjective Service Date: 03/02/18 Patient seen and examined:: with staff Patient is:: awake, verbal, confused Per staff patient has:: no adverse event Internal Medicine Objective - Results Recent Labs: Laboratory Last Values POC Glucose 98 MG/DL (70 - 105) 03/01/18 19:58 - Physical Exam Vitals and I&O: Vital Signs Temp 97.2 F 03/02/18 14:51 Pulse 74 03/02/18 16:37 Resp 18 03/02/18 14:51 BP 124/53 03/02/18 16:37 Pulse Ox 98 03/02/18 14:51 Intake & Output 03/01/18 03/02/18 03/02/18 18:59 06:59 18:59 Intake Total 4675 109 0762 Output Total 850 600 950 Balance 350 -480 50 Intake: Oral 1718 392 0534 Output: Urine 850 600 950 Other: # Bowel Movements 1 Active Medications: Current Medications Acetaminophen (Tylenol) 650 mg PO Q4H PRN PRN Reason: Mild Pain / Temp above 100 Stop: 04/29/18 04:14 Last Admin: 02/28/18 04:38 Dose: 650 mg Amlodipine Besylate (Norvasc) 10 mg PO DAILY [facility] Stop: 04/29/18 08:59 Last Admin: 03/02/18 08:51 Dose: 10 mg Atorvastatin Calcium (Lipitor) 10 mg PO HS [facility] Stop: 04/28/18 20:59 Last Admin: 03/01/18 20:40 Dose: 10 mg Clozapine (Clozaril) 100 mg PO BID [facility]; Protocol Stop: 04/29/18 08:59 Clozapine (Clozaril) 200 mg PO HS [facility]; Protocol Stop: 04/28/18 20:59 Docusate Sodium (Colace) 250 mg PO BID [facility] Stop: 04/29/18 08:59 Last Admin: 03/02/18 16:37 Dose: 250 mg Epoetin Pankaj (Epogen) 10,000 units SUBQ Mo [facility] Stop: 05/01/18 09:59 Last Admin: 03/02/18 09:07 Dose: Not Given Ferrous Sulfate (Iron) 325 mg PO DAILY [facility] Stop: 04/29/18 08:59 Last Admin: 03/02/18 08:52 Dose: 325 mg Gemfibrozil (Lopid) 600 mg PO BID [facility] Stop: 04/29/18 08:59 Last Admin: 03/02/18 16:37 Dose: 600 mg Glipizide (Glucotrol) 5 mg PO DAILY [facility] Stop: 04/29/18 08:59 Last Admin: 03/02/18 08:52 Dose: 5 mg Haloperidol (Haldol) 5 mg PO DAILY [facility]; Protocol Stop: 04/29/18 08:59 Last Admin: 03/02/18 08:52 Dose: 5 mg Haloperidol (Haldol) 10 mg PO HS [facility]; Protocol Stop: 04/28/18 20:59 Last Admin: 03/01/18 20:40 Dose: 10 mg Hydralazine HCl (Apresoline) 25 mg PO TID [facility] Stop: 04/28/18 20:59 Last Admin: 03/02/18 15:06 Dose: 25 mg Insulin Aspart (Novolog Insulin Sliding Scale) 0 units SUBQ ACHS [facility]; Protocol Stop: 04/28/18 20:59 Last Admin: 03/02/18 16:58 Dose: Not Given Lactulose (Cephulac) 30 gm PO BID [facility] Stop: 04/29/18 08:59 Last Admin: 03/02/18 16:35 Dose: 30 gm Levetiracetam (Keppra) 500 mg PO BID [facility] Stop: 04/29/18 08:59 Last Admin: 03/02/18 16:36 Dose: 500 mg Lorazepam (Ativan) 0.5 mg PO Q4H PRN; Protocol PRN Reason: Anxiety Stop: 04/28/18 18:01 Last Admin: 03/02/18 05:34 Dose: 0.5 mg Magnesium Hydroxide (Milk Of Magnesia) 30 ml PO DAILY PRN PRN Reason: Constipation Stop: 04/28/18 17:53 Metoprolol Tartrate (Lopressor) 25 mg PO BID [facility] Stop: 04/29/18 08:59 Last Admin: 03/02/18 16:37 Dose: 25 mg Miscellaneous (Sodium Polystyrene Sulfon/Sorb [Kionex 15 Gm/60 Ml Suspension]) 40 ml PO DAILY [facility] Stop: 04/29/18 08:59 Phenytoin (Dilantin) 100 mg PO BID [facility] Stop: 04/29/18 08:59 Last Admin: 03/02/18 16:36 Dose: 100 mg Sodium Chloride (Nacl Tab) 1 gm PO BID [facility] Stop: 04/29/18 08:59 Last Admin: 03/02/18 16:37 Dose: 1 gm Zolpidem Tartrate (Ambien) 5 mg PO HS PRN PRN Reason: Insomnia Stop: 04/28/18 18:01 Last Admin: 03/02/18 00:48 Dose: 5 mg General: demented HEENT: NC/AT, PERRLA, anicteric sclerae, throat clear Neck: Supple, No JVD, No thyromegaly, +2 carotid pulse wo bruit, No LAD Cardiovascular: Normal S1, Normal S2, without murmur Abdomen: soft, non-tender, non-distended Neurological: no change Internal Medicine Assmt/Plan - Assessment Assessment: 1.htn. 2.dm. 3.hyperlipidemia. 4.dementia. - Plan Plan: continue on current medication and diet.
[2018-03-02] MEDS: Atorvastatin Calcium 10 MG TAB PO SCH (21:03)
[2018-03-03] MEDS: INSULIN ASPART SLIDING SCALE 100 UNITS/ML UNIT SUBQ SCH ×4 (07:04→20:55)
--- NOTE | 2018-03-03 07:06 | Progress Notes ---
DATE: SUBJECTIVE: Chart reviewed and the patient interviewed. Also discussed the patient's condition with the staff and reviewed records and labs. The patient remains confused. The patient is still pacing up and down the unit in a confused state. He also is coming to the nurse's station asking "who am I." He also is still at times, resisting care and forgetful. Otherwise, the patient seems to be less agitated and also there is compliant with taking his medications. ASSESSMENT: The patient is still confused and agitated. TREATMENT PLAN: Continue to monitor his behavior and his condition closely. Also, continue adjusting Clozaril and Haldol and monitor the dose and follow up closely. JOB# [id number]
[2018-03-03] MEDS: Lactulose 10 Gm/15 mL 30mL UDC PO SCH ×2 (09:30→17:13)
[2018-03-03] MEDS: Ferrous Sulfate 325 MG TAB PO SCH (09:31)
[2018-03-03] MEDS: Atorvastatin Calcium 10 MG TAB PO SCH (20:54)
--- NOTE | 2018-03-03 21:35 | Internal Medicine Prog Note ---
Internal Medicine Subjective - Subjective Service Date: 03/03/18 Patient seen and examined:: with staff Patient is:: awake, verbal, confused Per staff patient has:: no adverse event Internal Medicine Objective - Results Recent Labs: Laboratory Last Values POC Glucose 72 MG/DL (70 - 105) 03/03/18 17:11 - Physical Exam Vitals and I&O: Vital Signs Temp 97.5 F 03/03/18 21:01 Pulse 80 03/03/18 21:01 Resp 19 03/03/18 21:01 BP 148/74 03/03/18 21:01 Pulse Ox 97 03/03/18 21:01 Intake & Output 03/03/18 03/03/18 03/04/18 06:59 18:59 06:59 Intake Total 480 1200 240 Output Total 400 950 500 Balance 80 250 -260 Intake: Oral 480 1200 240 Output: Urine 400 950 500 Other: # Bowel Movements 1 0 Active Medications: Current Medications Acetaminophen (Tylenol) 650 mg PO Q4H PRN PRN Reason: Mild Pain / Temp above 100 Stop: 04/29/18 04:14 Last Admin: 02/28/18 04:38 Dose: 650 mg Amlodipine Besylate (Norvasc) 10 mg PO DAILY [facility] Stop: 04/29/18 08:59 Last Admin: 03/03/18 09:46 Dose: 10 mg Atorvastatin Calcium (Lipitor) 10 mg PO HS [facility] Stop: 04/28/18 20:59 Last Admin: 03/03/18 20:54 Dose: 10 mg Clozapine (Clozaril) 100 mg PO BID [facility]; Protocol Stop: 04/29/18 08:59 Clozapine (Clozaril) 200 mg PO HS [facility]; Protocol Stop: 04/28/18 20:59 Docusate Sodium (Colace) 250 mg PO BID [facility] Stop: 04/29/18 08:59 Last Admin: 03/03/18 17:14 Dose: 250 mg Epoetin Pankaj (Epogen) 10,000 units SUBQ Mo [facility] Stop: 05/01/18 09:59 Last Admin: 03/02/18 09:07 Dose: Not Given Ferrous Sulfate (Iron) 325 mg PO DAILY [facility] Stop: 04/29/18 08:59 Last Admin: 03/03/18 09:31 Dose: 325 mg Gemfibrozil (Lopid) 600 mg PO BID [facility] Stop: 04/29/18 08:59 Last Admin: 03/03/18 17:14 Dose: 600 mg Glipizide (Glucotrol) 5 mg PO DAILY [facility] Stop: 04/29/18 08:59 Last Admin: 03/03/18 09:38 Dose: 5 mg Haloperidol (Haldol) 5 mg PO DAILY [facility]; Protocol Stop: 04/29/18 08:59 Last Admin: 03/03/18 09:31 Dose: 5 mg Haloperidol (Haldol) 10 mg PO HS [facility]; Protocol Stop: 04/28/18 20:59 Last Admin: 03/03/18 20:54 Dose: 10 mg Hydralazine HCl (Apresoline) 25 mg PO TID [facility] Stop: 04/28/18 20:59 Last Admin: 03/03/18 20:54 Dose: 25 mg Insulin Aspart (Novolog Insulin Sliding Scale) 0 units SUBQ ACHS [facility]; Protocol Stop: 04/28/18 20:59 Last Admin: 03/03/18 20:55 Dose: Not Given Lactulose (Cephulac) 30 gm PO BID [facility] Stop: 04/29/18 08:59 Last Admin: 03/03/18 17:13 Dose: 30 gm Levetiracetam (Keppra) 500 mg PO BID [facility] Stop: 04/29/18 08:59 Last Admin: 03/03/18 17:13 Dose: 500 mg Lorazepam (Ativan) 0.5 mg PO Q4H PRN; Protocol PRN Reason: Anxiety Stop: 04/28/18 18:01 Last Admin: 03/02/18 21:03 Dose: 0.5 mg Magnesium Hydroxide (Milk Of Magnesia) 30 ml PO DAILY PRN PRN Reason: Constipation Stop: 04/28/18 17:53 Metoprolol Tartrate (Lopressor) 25 mg PO BID [facility] Stop: 04/29/18 08:59 Last Admin: 03/03/18 17:17 Dose: Not Given Miscellaneous (Sodium Polystyrene Sulfon/Sorb [Kionex 15 Gm/60 Ml Suspension]) 40 ml PO DAILY [facility] Stop: 04/29/18 08:59 Phenytoin (Dilantin) 100 mg PO BID [facility] Stop: 04/29/18 08:59 Last Admin: 03/03/18 17:14 Dose: 100 mg Sodium Chloride (Nacl Tab) 1 gm PO BID [facility] Stop: 04/29/18 08:59 Last Admin: 03/03/18 17:13 Dose: 1 gm Zolpidem Tartrate (Ambien) 5 mg PO HS PRN PRN Reason: Insomnia Stop: 04/28/18 18:01 Last Admin: 03/03/18 20:55 Dose: 5 mg General: demented HEENT: NC/AT, PERRLA, anicteric sclerae, throat clear Neck: Supple, No JVD, No thyromegaly, +2 carotid pulse wo bruit, No LAD Cardiovascular: Normal S1, Normal S2, without murmur Abdomen: soft, non-tender, non-distended Neurological: no change Internal Medicine Assmt/Plan - Assessment Assessment: 1.htn. 2.dm. 3.hyperlipidemia. 4.dementia. - Plan Plan: continue on current medication and diet. Nutritional Asmnt/Malnutr-PDOC - Dietary Evaluation Malnutrition Findings (Please click <Entered> for more info): Nutritional Asmnt/Malnutrition Start: 03/03/18 13: 01 Text: Status: Complete Freq: Protocol: Document 03/03/18 13:01 LCHENG (Rec: 03/03/18 13:09 LCHENG [id number]) Nutritional Asmnt/Malnutrition Patient General Information Nutritional Screening Moderate Risk Diagnosis psychosis Pertinent Medical Hx/Surgical Hx HTN, hyperlipidemia, DM, seizure, dementia, BPH, suprapubic catheter plcacement Subjective Information Pt was not seen in his room at time of visit. Per EMR< pO intake 100% of meals. Current Diet Order/ Nutrition Support [id number] Pertinent Medications colace, iron, glucotrol, novolog, nacl tab Pertinent Labs 02/28-03/03 POC 44-119 Nutritional Hx/Data Height 1.78 m Height (Calculated Centimeters) 177.8 Current Weight (lbs) 87.543 kg Weight (Calculated Kilograms) 87.5 Weight (Calculated Grams) 49009.3 [place] Body Weight 166 Body Mass Index (BMI) 27.6 Weight Status Overweight GI Symptoms GI Symptoms None Last BM 7/2 Difficult in: None Skin Integrity/Comment: dryness Current %PO Good (75-100%) Estimated Nutritional Goals Calories/Kcals/Kg 25-30 based on IBW 75kg Kcals Calculated 8104-6654 Protein g/k Protein Calculated 75 Fluid: ml 1875-2250ml (1ml/kcal) Nutritional Problem No current Nutrition Prob Problem N/A Malnutrition Alert Is there a minimum of two criteria No selected? Query Text:Check all the applicable criteria. A minimum of two criteria are recommended for diagnosis of either severe or non-severe malnutrition. Malnutrition Related to Morbid Obesity Malnutrition related to morbid obesity No Intervention/Recommendation Comments 1. Recommend regular diet for liberalization d/t glucose level WNL. 2. Monitor PO intake, wt, labs and skin integrity 3. F/U as moderate risk in 3-5 days, 03/06-03/08 Expected Outcomes/Goals Expected Outcomes/Goals 1. PO intake to meet at least 75% of nutritional needs. 2. Wt stability, skin to remain intact, labs WNL.
[2018-03-04] MEDS: INSULIN ASPART SLIDING SCALE 100 UNITS/ML UNIT SUBQ SCH ×4 (06:30→21:28)
[2018-03-04] MEDS: Lactulose 10 Gm/15 mL 30mL UDC PO SCH ×2 (08:45→17:41)
[2018-03-04] MEDS: Ferrous Sulfate 325 MG TAB PO SCH (08:47)
--- NOTE | 2018-03-04 20:57 | Internal Medicine Prog Note ---
Internal Medicine Subjective - Subjective Service Date: 03/04/18 Patient seen and examined:: with staff Patient is:: awake, verbal, confused Per staff patient has:: no adverse event Internal Medicine Objective - Results Recent Labs: Laboratory Last Values POC Glucose 72 MG/DL (70 - 105) 03/03/18 17:11 - Physical Exam Vitals and I&O: Vital Signs Temp 97.4 F 03/04/18 15:06 Pulse 76 03/04/18 17:39 Resp 20 03/04/18 15:06 BP 129/74 03/04/18 17:39 Pulse Ox 96 03/04/18 15:06 Intake & Output 03/04/18 03/04/18 03/05/18 06:59 18:59 06:59 Intake Total 480 1200 Output Total 500 Balance -20 1200 Intake: Oral 480 1200 Output: Urine 500 Other: # Voids 1 950 # Bowel Movements 0 Active Medications: Current Medications Acetaminophen (Tylenol) 650 mg PO Q4H PRN PRN Reason: Mild Pain / Temp above 100 Stop: 04/29/18 04:14 Last Admin: 02/28/18 04:38 Dose: 650 mg Amlodipine Besylate (Norvasc) 10 mg PO DAILY [facility] Stop: 04/29/18 08:59 Last Admin: 03/04/18 08:48 Dose: 10 mg Atorvastatin Calcium (Lipitor) 10 mg PO [facility] Stop: 04/28/18 20:59 Last Admin: 03/03/18 20:54 Dose: 10 mg Clozapine (Clozaril) 100 mg PO BID [facility]; Protocol Stop: 04/29/18 08:59 Last Admin: 03/04/18 17:40 Dose: 100 mg Clozapine (Clozaril) 200 mg PO HS [facility]; Protocol Stop: 04/28/18 20:59 Last Admin: 03/04/18 17:36 Dose: Not Given Docusate Sodium (Colace) 250 mg PO BID [facility] Stop: 04/29/18 08:59 Last Admin: 03/04/18 17:39 Dose: 250 mg Epoetin Pankaj (Epogen) 10,000 units SUBQ Mo [facility] Stop: 05/01/18 09:59 Last Admin: 03/02/18 09:07 Dose: Not Given Ferrous Sulfate (Iron) 325 mg PO DAILY [facility] Stop: 04/29/18 08:59 Last Admin: 03/04/18 08:47 Dose: 325 mg Gemfibrozil (Lopid) 600 mg PO BID [facility] Stop: 04/29/18 08:59 Last Admin: 03/04/18 17:39 Dose: 600 mg Glipizide (Glucotrol) 5 mg PO DAILY [facility] Stop: 04/29/18 08:59 Last Admin: 03/04/18 08:48 Dose: 5 mg Haloperidol (Haldol) 10 mg PO HS [facility]; Protocol Stop: 04/28/18 20:59 Last Admin: 03/03/18 20:54 Dose: 10 mg Haloperidol (Haldol) 10 mg PO DAILY [facility]; Protocol Stop: 05/03/18 08:59 Last Admin: 03/04/18 08:47 Dose: 10 mg Hydralazine HCl (Apresoline) 25 mg PO TID [facility] Stop: 04/28/18 20:59 Last Admin: 03/04/18 14:27 Dose: 25 mg Insulin Aspart (Novolog Insulin Sliding Scale) 0 units SUBQ ACHS [facility]; Protocol Stop: 04/28/18 20:59 Last Admin: 03/04/18 17:42 Dose: Not Given Lactulose (Cephulac) 30 gm PO BID [facility] Stop: 04/29/18 08:59 Last Admin: 03/04/18 17:41 Dose: 30 gm Levetiracetam (Keppra) 500 mg PO BID [facility] Stop: 04/29/18 08:59 Last Admin: 03/04/18 17:39 Dose: 500 mg Lorazepam (Ativan) 0.5 mg PO Q4H PRN; Protocol PRN Reason: Anxiety Stop: 04/28/18 18:01 Last Admin: 03/02/18 21:03 Dose: 0.5 mg Magnesium Hydroxide (Milk Of Magnesia) 30 ml PO DAILY PRN PRN Reason: Constipation Stop: 04/28/18 17:53 Metoprolol Tartrate (Lopressor) 25 mg PO BID [facility] Stop: 04/29/18 08:59 Last Admin: 03/04/18 17:39 Dose: 25 mg Miscellaneous (Sodium Polystyrene Sulfon/Sorb [Kionex 15 Gm/60 Ml Suspension]) 40 ml PO DAILY [facility] Stop: 04/29/18 08:59 Phenytoin (Dilantin) 100 mg PO BID [facility] Stop: 04/29/18 08:59 Last Admin: 03/04/18 17:39 Dose: 100 mg Sodium Chloride (Nacl Tab) 1 gm PO BID [facility] Stop: 04/29/18 08:59 Last Admin: 03/04/18 17:38 Dose: 1 gm Zolpidem Tartrate (Ambien) 5 mg PO HS PRN PRN Reason: Insomnia Stop: 04/28/18 18:01 Last Admin: 03/03/18 20:55 Dose: 5 mg General: demented HEENT: NC/AT, PERRLA, anicteric sclerae, throat clear Neck: Supple, No JVD, No thyromegaly, +2 carotid pulse wo bruit, No LAD Cardiovascular: Normal S1, Normal S2, without murmur Abdomen: soft, non-tender, non-distended Neurological: no change Internal Medicine Assmt/Plan - Assessment Assessment: 1.htn. 2.dm. 3.hyperlipidemia. 4.dementia. - Plan Plan: continue on current medication and diet. Nutritional Asmnt/Malnutr-PDOC - Dietary Evaluation Malnutrition Findings (Please click <Entered> for more info): Nutritional Asmnt/Malnutrition Start: 03/03/18 13: 01 Text: Status: Complete Freq: Protocol: Document 03/03/18 13:01 LCHENG (Rec: 03/03/18 13:09 LCARDENG [id number]) Nutritional Asmnt/Malnutrition Patient General Information Nutritional Screening Moderate Risk Diagnosis psychosis Pertinent Medical Hx/Surgical Hx HTN, hyperlipidemia, DM, seizure, dementia, BPH, suprapubic catheter plcacement Subjective Information Pt was not seen in his room at time of visit. Per EMR< pO intake 100% of meals. Current Diet Order/ Nutrition Support [id number] Pertinent Medications colace, iron, glucotrol, novolog, nacl tab Pertinent Labs 02/28-7 POC 44-119 Nutritional Hx/Data Height 1.78 m Height (Calculated Centimeters) 177.8 Current Weight (lbs) 87.543 kg Weight (Calculated Kilograms) 87.5 Weight (Calculated Grams) 78221.3 [place] Body Weight 166 Body Mass Index (BMI) 27.6 Weight Status Overweight GI Symptoms GI Symptoms None Last BM 7/2 Difficult in: None Skin Integrity/Comment: dryness Current %PO Good (75-100%) Estimated Nutritional Goals Calories/Kcals/Kg 25-30 based on IBW 75kg Kcals Calculated 3679-9115 Protein g/k Protein Calculated 75 Fluid: ml 1875-2250ml (1ml/kcal) Nutritional Problem No current Nutrition Prob Problem N/A Malnutrition Alert Is there a minimum of two criteria No selected? Query Text:Check all the applicable criteria. A minimum of two criteria are recommended for diagnosis of either severe or non-severe malnutrition. Malnutrition Related to Morbid Obesity Malnutrition related to morbid obesity No Intervention/Recommendation Comments 1. Recommend regular diet for liberalization d/t glucose level WNL. 2. Monitor PO intake, wt, labs and skin integrity 3. F/U as moderate risk in 3-5 days, 03/06-03/08 Expected Outcomes/Goals Expected Outcomes/Goals 1. PO intake to meet at least 75% of nutritional needs. 2. Wt stability, skin to remain intact, labs WNL.
[2018-03-04] MEDS: Atorvastatin Calcium 10 MG TAB PO SCH (21:24)
--- NOTE | 2018-03-05 02:05 | Progress Notes ---
DATE: SUBJECTIVE: Chart reviewed and the patient interviewed. Also, discussed the patient's condition with the staff and reviewed the records and labs. The patient still wanders around the unit in angry and confused state. The patient is still agitated and is still preoccupied with his suprapubic catheter. He also is still argumentative with the staff and needs lots of attention. Also, his thought processes are circumstantial with occasional flight of ideas. Otherwise, the patient is compliant with taking his medications with no side effects of medications. ASSESSMENT: The patient is still psychotic and agitated. TREATMENT PLAN: We will continue monitoring his behavior and his condition closely. Also, we will increase Haldol to 10 mg in the morning and 10 mg at bedtime. Also, we will continue Clozaril in a dose of 100 mg twice a day and 200 mg at bedtime and continue to monitor blood work and follow up with his impulse control and behavior modification. JOB# [id number]
[2018-03-05] MEDS: INSULIN ASPART SLIDING SCALE 100 UNITS/ML UNIT SUBQ SCH ×4 (06:37→21:56)
[2018-03-05] MEDS: Lactulose 10 Gm/15 mL 30mL UDC PO SCH ×2 (09:55→16:32)
[2018-03-05] MEDS: Ferrous Sulfate 325 MG TAB PO SCH (12:44)
--- NOTE | 2018-03-05 16:32 | Progress Notes ---
DATE: SUBJECTIVE: Chart reviewed and the patient interviewed. Also discussed the patient's condition with the staff and reviewed records and labs. The patient is still depressed and is still withdrawn. The patient also is still feeling hopeless. Also, still seems to be preoccupied and responding to stimuli. Also, unpredictable behavior. Also, tends to isolate himself and withdrawn, most of the time. Otherwise, the patient is compliant with taking his medications. There is no side effect of Clozaril and Haldol. ASSESSMENT: The patient seems to be slightly calmer, but is still psychotic and preoccupied. TREATMENT PLAN: Continue to adjust psychotropic medications and continue to work on his psychosis and confusion and continue to follow up. Blood workup reviewed and within normal. JOB# [id number]
--- NOTE | 2018-03-05 17:16 | Internal Medicine Prog Note ---
Internal Medicine Subjective - Subjective Service Date: 03/05/18 Patient seen and examined:: with staff Patient is:: awake, verbal, confused Per staff patient has:: no adverse event Internal Medicine Objective - Results Recent Labs: Laboratory Last Values POC Glucose 89 MG/DL (70 - 105) 03/05/18 16:26 - Physical Exam Vitals and I&O: Vital Signs Temp 97.4 F 03/05/18 16:08 Pulse 103 03/05/18 16:08 Resp 18 03/05/18 16:08 BP 141/70 03/05/18 16:08 Pulse Ox 97 03/05/18 16:08 Intake & Output 03/04/18 03/05/18 03/05/18 18:59 06:59 18:59 Intake Total 1200 640 Balance 1200 640 Intake: Oral 1200 640 Other: # Voids 950 1 Active Medications: Current Medications Acetaminophen (Tylenol) 650 mg PO Q4H PRN PRN Reason: Mild Pain / Temp above 100 Stop: 04/29/18 04:14 Last Admin: 02/28/18 04:38 Dose: 650 mg Amlodipine Besylate (Norvasc) 10 mg PO DAILY [facility] Stop: 04/29/18 08:59 Last Admin: 03/05/18 12:44 Dose: Not Given Atorvastatin Calcium (Lipitor) 10 mg PO [facility] Stop: 04/28/18 20:59 Last Admin: 03/04/18 21:24 Dose: 10 mg Clozapine (Clozaril) 100 mg PO BID [facility]; Protocol Stop: 04/29/18 08:59 Last Admin: 03/05/18 16:34 Dose: 100 mg Clozapine (Clozaril) 200 mg PO HS [facility]; Protocol Stop: 04/28/18 20:59 Last Admin: 03/04/18 21:24 Dose: 200 mg Docusate Sodium (Colace) 250 mg PO BID [facility] Stop: 04/29/18 08:59 Last Admin: 03/05/18 16:33 Dose: 250 mg Epoetin Pankaj (Epogen) 10,000 units SUBQ Mo [facility] Stop: 05/01/18 09:59 Last Admin: 03/02/18 09:07 Dose: Not Given Ferrous Sulfate (Iron) 325 mg PO DAILY [facility] Stop: 04/29/18 08:59 Last Admin: 03/05/18 12:44 Dose: Not Given Gemfibrozil (Lopid) 600 mg PO BID [facility] Stop: 04/29/18 08:59 Last Admin: 03/05/18 16:34 Dose: 600 mg Glipizide (Glucotrol) 5 mg PO DAILY [facility] Stop: 04/29/18 08:59 Last Admin: 03/05/18 12:44 Dose: Not Given Haloperidol (Haldol) 10 mg PO HS [facility]; Protocol Stop: 04/28/18 20:59 Last Admin: 03/04/18 21:27 Dose: 10 mg Haloperidol (Haldol) 10 mg PO DAILY [facility]; Protocol Stop: 05/03/18 08:59 Last Admin: 03/05/18 09:54 Dose: 10 mg Hydralazine HCl (Apresoline) 25 mg PO TID [facility] Stop: 04/28/18 20:59 Last Admin: 03/05/18 12:45 Dose: Not Given Insulin Aspart (Novolog Insulin Sliding Scale) 0 units SUBQ ACHS [facility]; Protocol Stop: 04/28/18 20:59 Last Admin: 03/05/18 16:35 Dose: Not Given Lactulose (Cephulac) 30 gm PO BID [facility] Stop: 04/29/18 08:59 Last Admin: 03/05/18 16:32 Dose: 30 gm Levetiracetam (Keppra) 500 mg PO BID [facility] Stop: 04/29/18 08:59 Last Admin: 03/05/18 16:33 Dose: 500 mg Lorazepam (Ativan) 0.5 mg PO Q4H PRN; Protocol PRN Reason: Anxiety Stop: 04/28/18 18:01 Last Admin: 03/05/18 12:47 Dose: 0.5 mg Magnesium Hydroxide (Milk Of Magnesia) 30 ml PO DAILY PRN PRN Reason: Constipation Stop: 04/28/18 17:53 Metoprolol Tartrate (Lopressor) 25 mg PO BID [facility] Stop: 04/29/18 08:59 Last Admin: 03/05/18 12:45 Dose: Not Given Phenytoin (Dilantin) 100 mg PO BID [facility] Stop: 04/29/18 08:59 Last Admin: 03/05/18 16:33 Dose: 100 mg Sodium Chloride (Nacl Tab) 1 gm PO BID [facility] Stop: 04/29/18 08:59 Last Admin: 03/05/18 16:33 Dose: 1 gm Zolpidem Tartrate (Ambien) 5 mg PO HS PRN PRN Reason: Insomnia Stop: 04/28/18 18:01 Last Admin: 03/03/18 20:55 Dose: 5 mg General: demented HEENT: NC/AT, PERRLA, anicteric sclerae, throat clear Neck: Supple, No JVD, No thyromegaly, +2 carotid pulse wo bruit, No LAD Cardiovascular: Normal S1, Normal S2, without murmur Abdomen: soft, non-tender, non-distended Neurological: no change Internal Medicine Assmt/Plan - Assessment Assessment: 1.htn. 2.dm. 3.hyperlipidemia. 4.dementia. - Plan Plan: continue on current medication and diet. Nutritional Asmnt/Malnutr-PDOC - Dietary Evaluation Malnutrition Findings (Please click <Entered> for more info): Nutritional Asmnt/Malnutrition Start: 03/03/18 13: 01 Text: Status: Complete Freq: Protocol: Document 03/03/18 13:01 LCARDENG (Rec: 03/03/18 13:09 LCARDENG [id number]) Nutritional Asmnt/Malnutrition Patient General Information Nutritional Screening Moderate Risk Diagnosis psychosis Pertinent Medical Hx/Surgical Hx HTN, hyperlipidemia, DM, seizure, dementia, BPH, suprapubic catheter plcacement Subjective Information Pt was not seen in his room at time of visit. Per EMR< pO intake 100% of meals. Current Diet Order/ Nutrition Support [id number] Pertinent Medications colace, iron, glucotrol, novolog, nacl tab Pertinent Labs 02/28-03/03 POC 44-119 Nutritional Hx/Data Height 1.78 m Height (Calculated Centimeters) 177.8 Current Weight (lbs) 87.543 kg Weight (Calculated Kilograms) 87.5 Weight (Calculated Grams) 36365.3 [place] Body Weight 166 Body Mass Index (BMI) 27.6 Weight Status Overweight GI Symptoms GI Symptoms None Last BM 7/2 Difficult in: None Skin Integrity/Comment: dryness Current %PO Good (75-100%) Estimated Nutritional Goals Calories/Kcals/Kg 25-30 based on IBW 75kg Kcals Calculated 1403-6755 Protein g/k Protein Calculated 75 Fluid: ml 1875-2250ml (1ml/kcal) Nutritional Problem No current Nutrition Prob Problem N/A Malnutrition Alert Is there a minimum of two criteria No selected? Query Text:Check all the applicable criteria. A minimum of two criteria are recommended for diagnosis of either severe or non-severe malnutrition. Malnutrition Related to Morbid Obesity Malnutrition related to morbid obesity No Intervention/Recommendation Comments 1. Recommend regular diet for liberalization d/t glucose level WNL. 2. Monitor PO intake, wt, labs and skin integrity 3. F/U as moderate risk in 3-5 days, 03/06-03/08 Expected Outcomes/Goals Expected Outcomes/Goals 1. PO intake to meet at least 75% of nutritional needs. 2. Wt stability, skin to remain intact, labs WNL.
[2018-03-05] MEDS: Atorvastatin Calcium 10 MG TAB PO SCH (21:53)
[2018-03-06] MEDS: INSULIN ASPART SLIDING SCALE 100 UNITS/ML UNIT SUBQ SCH ×3 (06:43→21:41)
[2018-03-06] MEDS: Lactulose 10 Gm/15 mL 30mL UDC PO SCH ×2 (09:28→17:14)
[2018-03-06] MEDS: Ferrous Sulfate 325 MG TAB PO SCH (09:29)
--- NOTE | 2018-03-06 16:32 | Internal Medicine Prog Note ---
Internal Medicine Subjective - Subjective Service Date: 03/06/18 Patient seen and examined:: with staff Patient is:: awake, verbal, confused Per staff patient has:: no adverse event Internal Medicine Objective - Results Recent Labs: Laboratory Last Values POC Glucose 105 MG/DL (70 - 105) 03/06/18 06:18 - Physical Exam Vitals and I&O: Vital Signs Temp 98.6 F 03/06/18 14:00 Pulse 88 03/06/18 14:00 Resp 20 03/06/18 14:00 BP 144/81 03/06/18 14:00 Pulse Ox 99 03/06/18 14:00 Intake & Output 03/05/18 03/06/18 03/06/18 18:59 06:59 18:59 Intake Total 1200 Output Total 900 Balance 300 Intake: Oral 1200 Output: Urine 900 Active Medications: Current Medications Acetaminophen (Tylenol) 650 mg PO Q4H PRN PRN Reason: Mild Pain / Temp above 100 Stop: 04/29/18 04:14 Last Admin: 02/28/18 04:38 Dose: 650 mg Amlodipine Besylate (Norvasc) 10 mg PO DAILY [facility] Stop: 04/29/18 08:59 Last Admin: 03/06/18 09:31 Dose: 10 mg Atorvastatin Calcium (Lipitor) 10 mg PO [facility] Stop: 04/28/18 20:59 Last Admin: 03/05/18 21:53 Dose: 10 mg Clozapine (Clozaril) 100 mg PO BID [facility]; Protocol Stop: 04/29/18 08:59 Last Admin: 03/06/18 09:31 Dose: 100 mg Clozapine (Clozaril) 200 mg PO HS [facility]; Protocol Stop: 04/28/18 20:59 Last Admin: 03/05/18 21:53 Dose: 200 mg Docusate Sodium (Colace) 250 mg PO BID [facility] Stop: 04/29/18 08:59 Last Admin: 03/06/18 09:30 Dose: 250 mg Epoetin Pankaj (Epogen) 10,000 units SUBQ Mo [facility] Stop: 05/01/18 09:59 Last Admin: 03/02/18 09:07 Dose: Not Given Ferrous Sulfate (Iron) 325 mg PO DAILY [facility] Stop: 04/29/18 08:59 Last Admin: 03/06/18 09:29 Dose: 325 mg Gemfibrozil (Lopid) 600 mg PO BID [facility] Stop: 04/29/18 08:59 Last Admin: 03/06/18 09:31 Dose: 600 mg Glipizide (Glucotrol) 5 mg PO DAILY [facility] Stop: 04/29/18 08:59 Last Admin: 03/06/18 09:32 Dose: 5 mg Haloperidol (Haldol) 10 mg PO HS [facility]; Protocol Stop: 04/28/18 20:59 Last Admin: 03/05/18 21:54 Dose: 10 mg Haloperidol (Haldol) 10 mg PO DAILY [facility]; Protocol Stop: 05/03/18 08:59 Last Admin: 03/06/18 09:29 Dose: 10 mg Hydralazine HCl (Apresoline) 25 mg PO TID [facility] Stop: 04/28/18 20:59 Last Admin: 03/06/18 09:29 Dose: 25 mg Insulin Aspart (Novolog Insulin Sliding Scale) 0 units SUBQ ACHS [facility]; Protocol Stop: 04/28/18 20:59 Last Admin: 03/06/18 06:43 Dose: Not Given Lactulose (Cephulac) 30 gm PO BID [facility] Stop: 04/29/18 08:59 Last Admin: 03/06/18 09:28 Dose: 30 gm Levetiracetam (Keppra) 500 mg PO BID [facility] Stop: 04/29/18 08:59 Last Admin: 03/06/18 09:30 Dose: 500 mg Lorazepam (Ativan) 0.5 mg PO Q4H PRN; Protocol PRN Reason: Anxiety Stop: 04/28/18 18:01 Last Admin: 03/06/18 09:29 Dose: 0.5 mg Magnesium Hydroxide (Milk Of Magnesia) 30 ml PO DAILY PRN PRN Reason: Constipation Stop: 04/28/18 17:53 Metoprolol Tartrate (Lopressor) 25 mg PO BID [facility] Stop: 04/29/18 08:59 Last Admin: 03/06/18 09:30 Dose: 25 mg Phenytoin (Dilantin) 100 mg PO BID [facility] Stop: 04/29/18 08:59 Last Admin: 03/06/18 09:29 Dose: 100 mg Sodium Chloride (Nacl Tab) 1 gm PO BID [facility] Stop: 04/29/18 08:59 Last Admin: 03/06/18 09:30 Dose: 1 gm Zolpidem Tartrate (Ambien) 5 mg PO HS PRN PRN Reason: Insomnia Stop: 04/28/18 18:01 Last Admin: 03/05/18 21:54 Dose: 5 mg General: demented HEENT: NC/AT, PERRLA, anicteric sclerae, throat clear Neck: Supple, No JVD, No thyromegaly, +2 carotid pulse wo bruit, No LAD Cardiovascular: Normal S1, Normal S2, without murmur Abdomen: soft, non-tender, non-distended Neurological: no change Internal Medicine Assmt/Plan - Assessment Assessment: 1.htn. 2.dm. 3.hyperlipidemia. 4.dementia. - Plan Plan: continue on current medication and diet. Nutritional Asmnt/Malnutr-PDOC - Dietary Evaluation Malnutrition Findings (Please click <Entered> for more info): Nutritional Asmnt/Malnutrition Start: 03/03/18 13: 01 Text: Status: Complete Freq: Protocol: Document 03/03/18 13:01 DAVIDA (Rec: 03/03/18 13:09 ARDEN [id number]) Nutritional Asmnt/Malnutrition Patient General Information Nutritional Screening Moderate Risk Diagnosis psychosis Pertinent Medical Hx/Surgical Hx HTN, hyperlipidemia, DM, seizure, dementia, BPH, suprapubic catheter plcacement Subjective Information Pt was not seen in his room at time of visit. Per EMR< pO intake 100% of meals. Current Diet Order/ Nutrition Support [id number] Pertinent Medications colace, iron, glucotrol, novolog, nacl tab Pertinent Labs 02/28-03/03 POC 44-119 Nutritional Hx/Data Height 1.78 m Height (Calculated Centimeters) 177.8 Current Weight (lbs) 87.543 kg Weight (Calculated Kilograms) 87.5 Weight (Calculated Grams) 88650.3 [place] Body Weight 166 Body Mass Index (BMI) 27.6 Weight Status Overweight GI Symptoms GI Symptoms None Last BM 7/2 Difficult in: None Skin Integrity/Comment: dryness Current %PO Good (75-100%) Estimated Nutritional Goals Calories/Kcals/Kg 25-30 based on IBW 75kg Kcals Calculated 2912-0373 Protein g/k Protein Calculated 75 Fluid: ml 1875-2250ml (1ml/kcal) Nutritional Problem No current Nutrition Prob Problem N/A Malnutrition Alert Is there a minimum of two criteria No selected? Query Text:Check all the applicable criteria. A minimum of two criteria are recommended for diagnosis of either severe or non-severe malnutrition. Malnutrition Related to Morbid Obesity Malnutrition related to morbid obesity No Intervention/Recommendation Comments 1. Recommend regular diet for liberalization d/t glucose level WNL. 2. Monitor PO intake, wt, labs and skin integrity 3. F/U as moderate risk in 3-5 days, 03/06-03/08 Expected Outcomes/Goals Expected Outcomes/Goals 1. PO intake to meet at least 75% of nutritional needs. 2. Wt stability, skin to remain intact, labs WNL.
[2018-03-06] MEDS: Atorvastatin Calcium 10 MG TAB PO SCH (21:15)
[2018-03-07] MEDS: INSULIN ASPART SLIDING SCALE 100 UNITS/ML UNIT SUBQ SCH ×3 (06:41→21:03)
[2018-03-07] MEDS: Lactulose 10 Gm/15 mL 30mL UDC PO SCH ×2 (09:20→17:08)
[2018-03-07] MEDS: Ferrous Sulfate 325 MG TAB PO SCH (09:21)
--- NOTE | 2018-03-07 15:57 | Internal Medicine Prog Note ---
Internal Medicine Subjective - Subjective Service Date: 03/07/18 Patient seen and examined:: with staff Patient is:: awake, verbal, confused Per staff patient has:: no adverse event Internal Medicine Objective - Results Recent Labs: Laboratory Last Values POC Glucose 105 MG/DL (70 - 105) 03/07/18 06:08 - Physical Exam Vitals and I&O: Vital Signs Temp 98.9 F 03/07/18 15:54 Pulse 86 03/07/18 15:54 Resp 20 03/07/18 15:54 BP 111/63 03/07/18 15:54 Pulse Ox 96 03/07/18 15:54 Intake & Output 03/06/18 03/07/18 03/07/18 18:59 06:59 18:59 Intake Total 1200 240 Balance 1200 240 Intake: Oral 1200 240 Other: # Voids 4 2 # Bowel Movements 1 Active Medications: Current Medications Acetaminophen (Tylenol) 650 mg PO Q4H PRN PRN Reason: Mild Pain / Temp above 100 Stop: 04/29/18 04:14 Last Admin: 02/28/18 04:38 Dose: 650 mg Amlodipine Besylate (Norvasc) 10 mg PO DAILY [facility] Stop: 04/29/18 08:59 Last Admin: 03/07/18 09:25 Dose: 10 mg Atorvastatin Calcium (Lipitor) 10 mg PO HS [facility] Stop: 04/28/18 20:59 Last Admin: 03/06/18 21:15 Dose: 10 mg Clozapine (Clozaril) 100 mg PO BID [facility]; Protocol Stop: 04/29/18 08:59 Last Admin: 03/07/18 09:21 Dose: 100 mg Clozapine (Clozaril) 200 mg PO HS [facility]; Protocol Stop: 04/28/18 20:59 Last Admin: 03/06/18 21:15 Dose: 200 mg Docusate Sodium (Colace) 250 mg PO BID [facility] Stop: 04/29/18 08:59 Last Admin: 03/07/18 09:22 Dose: 250 mg Epoetin Pankaj (Epogen) 10,000 units SUBQ Mo [facility] Stop: 05/01/18 09:59 Last Admin: 03/02/18 09:07 Dose: Not Given Ferrous Sulfate (Iron) 325 mg PO DAILY [facility] Stop: 04/29/18 08:59 Last Admin: 03/07/18 09:21 Dose: 325 mg Gemfibrozil (Lopid) 600 mg PO BID [facility] Stop: 04/29/18 08:59 Last Admin: 03/07/18 09:20 Dose: 600 mg Glipizide (Glucotrol) 5 mg PO DAILY [facility] Stop: 04/29/18 08:59 Last Admin: 03/07/18 09:21 Dose: 5 mg Haloperidol (Haldol) 10 mg PO HS [facility]; Protocol Stop: 04/28/18 20:59 Last Admin: 03/06/18 21:14 Dose: 10 mg Haloperidol (Haldol) 10 mg PO DAILY [facility]; Protocol Stop: 05/03/18 08:59 Last Admin: 03/07/18 09:20 Dose: 10 mg Hydralazine HCl (Apresoline) 25 mg PO TID [facility] Stop: 04/28/18 20:59 Last Admin: 03/07/18 09:26 Dose: 25 mg Insulin Aspart (Novolog Insulin Sliding Scale) 0 units SUBQ ACHS [facility]; Protocol Stop: 04/28/18 20:59 Last Admin: 03/07/18 06:41 Dose: Not Given Lactulose (Cephulac) 30 gm PO BID [facility] Stop: 04/29/18 08:59 Last Admin: 03/07/18 09:20 Dose: 30 gm Levetiracetam (Keppra) 500 mg PO BID [facility] Stop: 04/29/18 08:59 Last Admin: 03/07/18 09:21 Dose: 500 mg Lorazepam (Ativan) 0.5 mg PO Q4H PRN; Protocol PRN Reason: Anxiety Stop: 04/28/18 18:01 Last Admin: 03/07/18 09:21 Dose: 0.5 mg Magnesium Hydroxide (Milk Of Magnesia) 30 ml PO DAILY PRN PRN Reason: Constipation Stop: 04/28/18 17:53 Metoprolol Tartrate (Lopressor) 25 mg PO BID [facility] Stop: 04/29/18 08:59 Last Admin: 03/07/18 09:25 Dose: 25 mg Phenytoin (Dilantin) 100 mg PO BID [facility] Stop: 04/29/18 08:59 Last Admin: 03/07/18 09:21 Dose: 100 mg Sodium Chloride (Nacl Tab) 1 gm PO BID [facility] Stop: 04/29/18 08:59 Last Admin: 03/07/18 09:21 Dose: 1 gm Zolpidem Tartrate (Ambien) 5 mg PO HS PRN PRN Reason: Insomnia Stop: 04/28/18 18:01 Last Admin: 03/06/18 21:13 Dose: 5 mg General: demented HEENT: NC/AT, PERRLA, anicteric sclerae, throat clear Neck: Supple, No JVD, No thyromegaly, +2 carotid pulse wo bruit, No LAD Cardiovascular: Normal S1, Normal S2, without murmur Abdomen: soft, non-tender, non-distended Neurological: no change Internal Medicine Assmt/Plan - Assessment Assessment: 1.htn. 2.dm. 3.hyperlipidemia. 4.dementia. - Plan Plan: continue on current medication and diet. Nutritional Asmnt/Malnutr-PDOC - Dietary Evaluation Malnutrition Findings (Please click <Entered> for more info): Nutritional Asmnt/Malnutrition Start: 03/03/18 13: 01 Text: Status: Complete Freq: Protocol: Document 03/03/18 13:01 ARDEN (Rec: 03/03/18 13:09 ARDEN [id number]) Nutritional Asmnt/Malnutrition Patient General Information Nutritional Screening Moderate Risk Diagnosis psychosis Pertinent Medical Hx/Surgical Hx HTN, hyperlipidemia, DM, seizure, dementia, BPH, suprapubic catheter plcacement Subjective Information Pt was not seen in his room at time of visit. Per EMR< pO intake 100% of meals. Current Diet Order/ Nutrition Support [id number] Pertinent Medications colace, iron, glucotrol, novolog, nacl tab Pertinent Labs 02/28-03/03 POC 44-119 Nutritional Hx/Data Height 1.78 m Height (Calculated Centimeters) 177.8 Current Weight (lbs) 87.543 kg Weight (Calculated Kilograms) 87.5 Weight (Calculated Grams) 51150.3 [place] Body Weight 166 Body Mass Index (BMI) 27.6 Weight Status Overweight GI Symptoms GI Symptoms None Last BM 7/ Difficult in: None Skin Integrity/Comment: dryness Current %PO Good (75-100%) Estimated Nutritional Goals Calories/Kcals/Kg 25-30 based on IBW 75kg Kcals Calculated 7640-1543 Protein g/k Protein Calculated 75 Fluid: ml 1875-2250ml (1ml/kcal) Nutritional Problem No current Nutrition Prob Problem N/A Malnutrition Alert Is there a minimum of two criteria No selected? Query Text:Check all the applicable criteria. A minimum of two criteria are recommended for diagnosis of either severe or non-severe malnutrition. Malnutrition Related to Morbid Obesity Malnutrition related to morbid obesity No Intervention/Recommendation Comments 1. Recommend regular diet for liberalization d/t glucose level WNL. 2. Monitor PO intake, wt, labs and skin integrity 3. F/U as moderate risk in 3-5 days, 03/06-03/08 Expected Outcomes/Goals Expected Outcomes/Goals 1. PO intake to meet at least 75% of nutritional needs. 2. Wt stability, skin to remain intact, labs WNL.
[2018-03-07] MEDS: Atorvastatin Calcium 10 MG TAB PO SCH (21:01)
--- NOTE | 2018-03-07 22:53 | Progress Notes ---
DATE: 03/06/2018 SUBJECTIVE: Chart reviewed and the patient interviewed. Also discussed the patient's condition with the staff and reviewed records and labs. The patient is still severely depressed and withdrawn. The patient also is still isolative. Also, still suspicious and paranoid and have unpredictable behavior. The patient also found to be preoccupied with his thoughts and is interacting minimally with others. The patient also is restless and he needs redirections. Otherwise, the patient continued to comply with taking his medications with no side effect of medications. ASSESSMENT: The patient is still depressed and psychotic. TREATMENT PLAN: Continue to monitor his behavior and his condition closely. Also, continue to work on his psychosis and his depressed mood and continue to follow up. JOB# [id number]
--- NOTE | 2018-03-08 06:41 | Progress Notes ---
DATE: 03/07/2018 SUBJECTIVE: A 57-year-old male with history of schizophrenia, coming here from a board and care, confused, disoriented. 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 ASSESSMENT: The patient remains symptomatic, ongoing psychotic symptoms, delusions. PLAN: We will continue to monitor. Continue Clozaril. Medications were noted. Given his ongoing symptoms, he is not safe for discharge at this time. JOB# [id number]
[2018-03-08] MEDS: INSULIN ASPART SLIDING SCALE 100 UNITS/ML UNIT SUBQ SCH ×4 (06:53→20:40)
[2018-03-08] MEDS: Lactulose 10 Gm/15 mL 30mL UDC PO SCH ×2 (08:09→16:25)
[2018-03-08] MEDS: Ferrous Sulfate 325 MG TAB PO SCH (08:11)
--- NOTE | 2018-03-08 08:22 | Progress Notes ---
DATE: 03/08/2018 SUBJECTIVE: The patient is currently in the hospital, history of schizophrenia, coming from a board and care, confused, disoriented, making nonsensical statements, asking if he can clean the building, asking if I own the building. Staff noting he remains disorganized, internally preoccupied, better sleep with wine blender awakenings, seems to be tolerant of treatment, needing some prompting for ADLs, prompting to eat. ASSESSMENT: The patient remains disorganized, impulsive, unpredictable. PLAN: We will continue to monitor. We will continue to adjust and titrate medications, currently on Haldol, Clozaril, tolerating well, no overt side effects, no EPS for example, no over sedation for example. JOB# [id number]
--- NOTE | 2018-03-08 16:06 | Internal Medicine Prog Note ---
Internal Medicine Subjective - Subjective Service Date: 03/08/18 Patient seen and examined:: with staff (HE PULLED HIS SPC AND REPLACED BY ER PHYSICIAN.) Patient is:: awake, verbal, confused Per staff patient has:: no adverse event Internal Medicine Objective - Results Recent Labs: Laboratory Last Values POC Glucose 95 MG/DL (70 - 105) 03/08/18 11:57 - Physical Exam Vitals and I&O: Vital Signs Temp 98.3 F 03/08/18 15:39 Pulse 93 03/08/18 15:39 Resp 20 03/08/18 15:39 BP 135/69 03/08/18 15:39 Pulse Ox 96 03/08/18 15:39 Intake & Output 03/07/18 03/08/18 03/08/18 18:59 06:59 18:59 Intake Total 1200 Output Total 800 Balance 400 Intake: Oral 1200 Output: Urine 800 Other: # Bowel Movements 1 Active Medications: Current Medications Acetaminophen (Tylenol) 650 mg PO Q4H PRN PRN Reason: Mild Pain / Temp above 100 Stop: 04/29/18 04:14 Last Admin: 02/28/18 04:38 Dose: 650 mg Amlodipine Besylate (Norvasc) 10 mg PO DAILY [facility] Stop: 04/29/18 08:59 Last Admin: 03/08/18 08:26 Dose: 10 mg Atorvastatin Calcium (Lipitor) 10 mg PO [facility] Stop: 04/28/18 20:59 Last Admin: 03/07/18 21:01 Dose: 10 mg Clozapine (Clozaril) 100 mg PO BID [facility]; Protocol Stop: 04/29/18 08:59 Last Admin: 03/08/18 08:26 Dose: 100 mg Clozapine (Clozaril) 200 mg PO HS [facility]; Protocol Stop: 04/28/18 20:59 Last Admin: 03/07/18 21:01 Dose: 200 mg Docusate Sodium (Colace) 250 mg PO BID [facility] Stop: 04/29/18 08:59 Last Admin: 03/08/18 08:09 Dose: 250 mg Epoetin Pankaj (Epogen) 10,000 units SUBQ Mo [facility] Stop: 05/01/18 09:59 Last Admin: 03/02/18 09:07 Dose: Not Given Ferrous Sulfate (Iron) 325 mg PO DAILY [facility] Stop: 04/29/18 08:59 Last Admin: 03/08/18 08:11 Dose: 325 mg Gemfibrozil (Lopid) 600 mg PO BID [facility] Stop: 04/29/18 08:59 Last Admin: 03/08/18 08:11 Dose: 600 mg Glipizide (Glucotrol) 5 mg PO DAILY [facility] Stop: 04/29/18 08:59 Last Admin: 03/08/18 08:10 Dose: 5 mg Haloperidol (Haldol) 10 mg PO HS [facility]; Protocol Stop: 04/28/18 20:59 Last Admin: 03/07/18 21:01 Dose: 10 mg Haloperidol (Haldol) 10 mg PO DAILY [facility]; Protocol Stop: 05/03/18 08:59 Last Admin: 03/08/18 08:10 Dose: 10 mg Hydralazine HCl (Apresoline) 25 mg PO TID [facility] Stop: 04/28/18 20:59 Last Admin: 03/08/18 14:53 Dose: 25 mg Insulin Aspart (Novolog Insulin Sliding Scale) 0 units SUBQ ACHS [facility]; Protocol Stop: 04/28/18 20:59 Last Admin: 03/08/18 12:08 Dose: Not Given Lactulose (Cephulac) 30 gm PO BID [facility] Stop: 04/29/18 08:59 Last Admin: 03/08/18 08:09 Dose: 30 gm Levetiracetam (Keppra) 500 mg PO BID [facility] Stop: 04/29/18 08:59 Last Admin: 03/08/18 08:10 Dose: 500 mg Lorazepam (Ativan) 0.5 mg PO Q4H PRN; Protocol PRN Reason: Anxiety Stop: 04/28/18 18:01 Last Admin: 03/07/18 17:08 Dose: 0.5 mg Magnesium Hydroxide (Milk Of Magnesia) 30 ml PO DAILY PRN PRN Reason: Constipation Stop: 04/28/18 17:53 Metoprolol Tartrate (Lopressor) 25 mg PO BID [facility] Stop: 04/29/18 08:59 Last Admin: 03/08/18 08:26 Dose: 25 mg Phenytoin (Dilantin) 100 mg PO BID [facility] Stop: 04/29/18 08:59 Last Admin: 03/08/18 08:10 Dose: 100 mg Sodium Chloride (Nacl Tab) 1 gm PO BID [facility] Stop: 04/29/18 08:59 Last Admin: 03/08/18 08:10 Dose: 1 gm Zolpidem Tartrate (Ambien) 5 mg PO HS PRN PRN Reason: Insomnia Stop: 04/28/18 18:01 Last Admin: 03/07/18 21:03 Dose: 5 mg General: demented HEENT: NC/AT, PERRLA, anicteric sclerae, throat clear Neck: Supple, No JVD, No thyromegaly, +2 carotid pulse wo bruit, No LAD Cardiovascular: Normal S1, Normal S2, without murmur Abdomen: soft, non-tender, non-distended Neurological: no change Internal Medicine Assmt/Plan - Assessment Assessment: 1.htn. 2.dm. 3.hyperlipidemia. 4.dementia. - Plan Plan: continue on current medication and diet. Nutritional Asmnt/Malnutr-PDOC - Dietary Evaluation Malnutrition Findings (Please click <Entered> for more info): Nutritional Asmnt/Malnutrition Start: 03/03/18 13: 01 Text: Status: Complete Freq: Protocol: Document 03/03/18 13:01 LCHENG (Rec: 03/03/18 13:09 HENG [id number]) Nutritional Asmnt/Malnutrition Patient General Information Nutritional Screening Moderate Risk Diagnosis psychosis Pertinent Medical Hx/Surgical Hx HTN, hyperlipidemia, DM, seizure, dementia, BPH, suprapubic catheter plcacement Subjective Information Pt was not seen in his room at time of visit. Per EMR< pO intake 100% of meals. Current Diet Order/ Nutrition Support [id number] Pertinent Medications colace, iron, glucotrol, novolog, nacl tab Pertinent Labs 02/28-03/03 POC 44-119 Nutritional Hx/Data Height 1.78 m Height (Calculated Centimeters) 177.8 Current Weight (lbs) 87.543 kg Weight (Calculated Kilograms) 87.5 Weight (Calculated Grams) 48295.3 [place] Body Weight 166 Body Mass Index (BMI) 27.6 Weight Status Overweight GI Symptoms GI Symptoms None Last BM 7/2 Difficult in: None Skin Integrity/Comment: dryness Current %PO Good (75-100%) Estimated Nutritional Goals Calories/Kcals/Kg 25-30 based on IBW 75kg Kcals Calculated 4326-1414 Protein g/k Protein Calculated 75 Fluid: ml 1875-2250ml (1ml/kcal) Nutritional Problem No current Nutrition Prob Problem N/A Malnutrition Alert Is there a minimum of two criteria No selected? Query Text:Check all the applicable criteria. A minimum of two criteria are recommended for diagnosis of either severe or non-severe malnutrition. Malnutrition Related to Morbid Obesity Malnutrition related to morbid obesity No Intervention/Recommendation Comments 1. Recommend regular diet for liberalization d/t glucose level WNL. 2. Monitor PO intake, wt, labs and skin integrity 3. F/U as moderate risk in 3-5 days, 03/06-03/08 Expected Outcomes/Goals Expected Outcomes/Goals 1. PO intake to meet at least 75% of nutritional needs. 2. Wt stability, skin to remain intact, labs WNL.
[2018-03-08] MEDS: Atorvastatin Calcium 10 MG TAB PO SCH (20:31)
[2018-03-09] MEDS: INSULIN ASPART SLIDING SCALE 100 UNITS/ML UNIT SUBQ SCH ×4 (06:39→20:30)
[2018-03-09] MEDS: Lactulose 10 Gm/15 mL 30mL UDC PO SCH ×2 (08:55→16:45)
[2018-03-09] MEDS: Ferrous Sulfate 325 MG TAB PO SCH (08:55)
--- NOTE | 2018-03-09 18:00 | Internal Medicine Prog Note ---
Internal Medicine Subjective - Subjective Service Date: 03/09/18 Patient seen and examined:: with staff Patient is:: awake, verbal, confused Per staff patient has:: no adverse event Internal Medicine Objective - Results Recent Labs: Laboratory Last Values POC Glucose 134 MG/DL (70 - 105) H 03/09/18 16:49 - Physical Exam Vitals and I&O: Vital Signs Temp 98.0 F 03/09/18 15:47 Pulse 89 03/09/18 15:47 Resp 19 03/09/18 15:47 BP 105/45 03/09/18 15:47 Pulse Ox 98 03/09/18 15:47 Intake & Output 03/08/18 03/09/18 03/09/18 18:59 06:59 18:59 Intake Total 1200 520 Output Total 900 Balance 300 520 Intake: Oral 1200 520 Output: Urine 900 Other: # Voids 3 # Bowel Movements 0 Active Medications: Current Medications Acetaminophen (Tylenol) 650 mg PO Q4H PRN PRN Reason: Mild Pain / Temp above 100 Stop: 04/29/18 04:14 Last Admin: 02/28/18 04:38 Dose: 650 mg Amlodipine Besylate (Norvasc) 10 mg PO DAILY [facility] Stop: 04/29/18 08:59 Last Admin: 03/09/18 08:56 Dose: 10 mg Atorvastatin Calcium (Lipitor) 10 mg PO [facility] Stop: 04/28/18 20:59 Last Admin: 03/08/18 20:31 Dose: 10 mg Clozapine (Clozaril) 100 mg PO BID [facility]; Protocol Stop: 04/29/18 08:59 Last Admin: 03/09/18 16:44 Dose: 100 mg Clozapine (Clozaril) 200 mg PO HS [facility]; Protocol Stop: 04/28/18 20:59 Last Admin: 03/08/18 20:32 Dose: 200 mg Docusate Sodium (Colace) 250 mg PO BID [facility] Stop: 04/29/18 08:59 Last Admin: 03/09/18 16:44 Dose: 250 mg Epoetin Pankaj (Epogen) 10,000 units SUBQ Mo [facility] Stop: 05/01/18 09:59 Last Admin: 03/02/18 09:07 Dose: Not Given Ferrous Sulfate (Iron) 325 mg PO DAILY [facility] Stop: 04/29/18 08:59 Last Admin: 03/09/18 08:55 Dose: 325 mg Gemfibrozil (Lopid) 600 mg PO BID [facility] Stop: 04/29/18 08:59 Last Admin: 03/09/18 16:44 Dose: 600 mg Glipizide (Glucotrol) 5 mg PO DAILY [facility] Stop: 04/29/18 08:59 Last Admin: 03/09/18 08:55 Dose: 5 mg Haloperidol (Haldol) 10 mg PO HS [facility]; Protocol Stop: 04/28/18 20:59 Last Admin: 03/08/18 20:31 Dose: 10 mg Haloperidol (Haldol) 10 mg PO DAILY [facility]; Protocol Stop: 05/03/18 08:59 Last Admin: 03/09/18 08:55 Dose: 10 mg Hydralazine HCl (Apresoline) 25 mg PO TID [facility] Stop: 04/28/18 20:59 Last Admin: 03/09/18 15:32 Dose: Not Given Insulin Aspart (Novolog Insulin Sliding Scale) 0 units SUBQ ACHS [facility]; Protocol Stop: 04/28/18 20:59 Last Admin: 03/09/18 12:48 Dose: Not Given Lactulose (Cephulac) 30 gm PO BID [facility] Stop: 04/29/18 08:59 Last Admin: 03/09/18 16:45 Dose: 30 gm Levetiracetam (Keppra) 500 mg PO BID [facility] Stop: 04/29/18 08:59 Last Admin: 03/09/18 16:44 Dose: 500 mg Lorazepam (Ativan) 0.5 mg PO Q4H PRN; Protocol PRN Reason: Anxiety Stop: 04/28/18 18:01 Last Admin: 03/07/18 17:08 Dose: 0.5 mg Magnesium Hydroxide (Milk Of Magnesia) 30 ml PO DAILY PRN PRN Reason: Constipation Stop: 04/28/18 17:53 Metoprolol Tartrate (Lopressor) 25 mg PO BID [facility] Stop: 04/29/18 08:59 Last Admin: 03/09/18 16:45 Dose: Not Given Phenytoin (Dilantin) 100 mg PO BID [facility] Stop: 04/29/18 08:59 Last Admin: 03/09/18 16:44 Dose: 100 mg Sodium Chloride (Nacl Tab) 1 gm PO BID [facility] Stop: 04/29/18 08:59 Last Admin: 03/09/18 16:45 Dose: 1 gm Zolpidem Tartrate (Ambien) 5 mg PO HS PRN PRN Reason: Insomnia Stop: 04/28/18 18:01 Last Admin: 03/08/18 20:32 Dose: 5 mg General: demented HEENT: NC/AT, PERRLA, anicteric sclerae, throat clear Neck: Supple, No JVD, No thyromegaly, +2 carotid pulse wo bruit, No LAD Cardiovascular: Normal S1, Normal S2, without murmur Abdomen: soft, non-tender, non-distended Neurological: no change Internal Medicine Assmt/Plan - Assessment Assessment: 1.htn. 2.dm. 3.hyperlipidemia. 4.dementia. - Plan Plan: continue on current medication and diet.cbc and cmp in am. Nutritional Asmnt/Malnutr-PDOC - Dietary Evaluation Malnutrition Findings (Please click <Entered> for more info): Nutritional Asmnt/Malnutrition Start: 03/03/18 13: 01 Text: Status: Complete Freq: Protocol: Document 03/03/18 13:01 LCHENG (Rec: 03/03/18 13:09 HENG [id number]) Nutritional Asmnt/Malnutrition Patient General Information Nutritional Screening Moderate Risk Diagnosis psychosis Pertinent Medical Hx/Surgical Hx HTN, hyperlipidemia, DM, seizure, dementia, BPH, suprapubic catheter plcacement Subjective Information Pt was not seen in his room at time of visit. Per EMR< pO intake 100% of meals. Current Diet Order/ Nutrition Support [id number] Pertinent Medications colace, iron, glucotrol, novolog, nacl tab Pertinent Labs 02/28-03/03 POC 44-119 Nutritional Hx/Data Height 1.78 m Height (Calculated Centimeters) 177.8 Current Weight (lbs) 87.543 kg Weight (Calculated Kilograms) 87.5 Weight (Calculated Grams) 86284.3 [place] Body Weight 166 Body Mass Index (BMI) 27.6 Weight Status Overweight GI Symptoms GI Symptoms None Last BM 7/2 Difficult in: None Skin Integrity/Comment: dryness Current %PO Good (75-100%) Estimated Nutritional Goals Calories/Kcals/Kg 25-30 based on IBW 75kg Kcals Calculated 4172-0632 Protein g/k Protein Calculated 75 Fluid: ml 1875-2250ml (1ml/kcal) Nutritional Problem No current Nutrition Prob Problem N/A Malnutrition Alert Is there a minimum of two criteria No selected? Query Text:Check all the applicable criteria. A minimum of two criteria are recommended for diagnosis of either severe or non-severe malnutrition. Malnutrition Related to Morbid Obesity Malnutrition related to morbid obesity No Intervention/Recommendation Comments 1. Recommend regular diet for liberalization d/t glucose level WNL. 2. Monitor PO intake, wt, labs and skin integrity 3. F/U as moderate risk in 3-5 days, 03/06-03/08 Expected Outcomes/Goals Expected Outcomes/Goals 1. PO intake to meet at least 75% of nutritional needs. 2. Wt stability, skin to remain intact, labs WNL.
[2018-03-09] MEDS: Atorvastatin Calcium 10 MG TAB PO SCH (21:34)
--- NOTE | 2018-03-09 21:49 | Progress Notes ---
DATE: 03/09/2018 COVERING FOR: Dr. Pradhan. Case was discussed with staff of the patient, reviewed records. This is a well-known patient. I have seen him before covering for Dr. Pradhan ____ admission history. The patient continues to be confused. Continues to be unable to make safe plan for self-care, making nonsensical statements, with a history of schizophrenia, asking if he can own the building. He continues to be disorganized, internally preoccupied. He is on Clozaril. He is compliant with the medication with no side effects, no sedation, no nausea, no extrapyramidal symptoms. He is on Haldol 10 mg daily and at bedtime. His clozapine dose is 200 mg at bedtime and 100 mg twice a day. We will continue to work with the patient in group therapy and milieu therapy, adjust medication as needed. JOB# [id number]
[2018-03-10 06:38] LABS: ALB/GLOB RATIO 1.5 (1.0-1.8); ALBUMIN 4.4 gm/dL (4.2-5.5); ANION GAP 13.5 (7.0-16.0); BILIRUBIN,TOTAL 0.2 mg/dL (0.3-1.0); CALCIUM SERUM 9.8 mg/dL (8.6-10.3); CREATININE - SERUM 1.7 mg/dL (0.7-1.3); GFR AFRICAN-AMERICAN 53.5 ml/min (>90); GFR NON AFRICAN-AMERICAN 44.2 ml/min; POTASSIUM SERUM 4.5 mEq/L (3.5-5.1); TOTAL PROTEIN,SERUM 7.4 gm/dL (6.0-8.3)
[2018-03-10] MEDS: INSULIN ASPART SLIDING SCALE 100 UNITS/ML UNIT SUBQ SCH ×2 (06:39→12:00)
[2018-03-10 06:54] LABS: % BASOPHILS 0.7 % (0.0-2.0); % EOSINOPHILS 3.5 % (0.0-5.0); % MONOCYTES 6.3 % (2.0-10.0); % NEUTROPHILS 69.5 % (40.0-80.0); BASOPHILE ABSOLUTE 0.1 Th/cumm (0-0.2); EOSINOPHILE ABSOLUTE 0.4 Th/cmm (0.1-0.4); HEMATOCRIT 31.9 % (41.0-60); HEMOGLOBIN 10.8 gm/dL (12-16); MEAN CELL VOLUME 83.4 fl (80-99); MEAN CORPUSCULAR HEMOGLOBIN 28.1 pg (26.0-30.0); MEAN CORPUSCULAR HGB CONC 33.7 pg (28.0-36.0); MEAN PLATELET VOLUME 7.7 fl; MONOCYTE ABSOLUTE 0.6 Th/cmm (0.3-1.0); PLATELET COUNT 373 Th/cmm (150-400); RED BLOOD COUNT 3.83 Mil/cmm (4.30-5.70); RED CELL DISTRIBUTION WIDTH 14.4 % (11.5-20.0); WHITE BLOOD COUNT 10.1 Th/cmm (4.8-10.8)
[2018-03-10] MEDS: Lactulose 10 Gm/15 mL 30mL UDC PO SCH (08:30)
[2018-03-10] MEDS: Ferrous Sulfate 325 MG TAB PO SCH (08:31)
[2018-03-10] MEDS ORDERED: Epoetin Alfa 20000 Units/mL Vial SUBQ SCH (10:00)
--- NOTE | 2018-03-10 22:19 | Progress Notes ---
DATE: 03/10/2018 SUBJECTIVE: Case was discussed with staff of the patient, reviewed records. The patient continues to be confused, pacing the unit, unable to make safe plan for self-care, making nonsensical statements. Continues to have poor insight. He is compliant with the medication with no side effects, no sedation, no nausea, and no extrapyramidal symptoms. We will continue to work with the patient in group therapy, milieu therapy, and adjust the medications as needed. JOB# [id number]
== END 2018-03-10 16:30 | DRG 885 ==
LOC: GERO 16:44
PROVIDERS: ADMIT Psychiatry & Neurology Psychiatry; ATTEND Psychiatry & Neurology Psychiatry
DX: F20.9 Schizophrenia, unspecified (principal); E87.1 Hypo-osmolality and hyponatremia; D64.9 Anemia, unspecified; I10 Essential (primary) hypertension; E11.9 Type 2 diabetes mellitus without complications; E78.5 Hyperlipidemia, unspecified; F03.90 Unspecified dementia, unspecified severity, without behavioral disturbance, psychotic disturbance, mood disturbance, and anxiety; G40.909 Epilepsy, unspecified, not intractable, without status epilepticus; N40.0 Benign prostatic hyperplasia without lower urinary tract symptoms; R45.1 Restlessness and agitation; F14.10 Cocaine abuse, uncomplicated
CPT/HCPCS: 36415-UA; 80053-TC; 82948-90; 85025-TC; G0410; J0885; J1815; Z7610

== ENCOUNTER 2018-07-26 12:39 | Inpatient (IN) | payer MEDICARE, MEDICAID ==
[2018-07-26] MEDS ORDERED: D5-0.9%NS 1,000 ML IV ONE (13:23)
[2018-07-26 13:51] LABS: % BASOPHILS 1.2 % (0.0-2.0); % EOSINOPHILS 1.1 % (0.0-5.0); % LYMPHOCYTES 16.1 % (20.0-50.0); % MONOCYTES 3.8 % (2.0-10.0); % NEUTROPHILS 77.8 % (40.0-80.0); BASOPHILE ABSOLUTE 0.1 Th/cumm (0-0.2); EOSINOPHILE ABSOLUTE 0.1 Th/cmm (0.1-0.4); HEMATOCRIT 35.3 % (41.0-60); HEMOGLOBIN 11.8 gm/dL (12-16); LYMPHOCYTE ABSOLUTE 1.3 Th/cmm (1.5-3.0); MEAN CELL VOLUME 84.7 fl (80-99); MEAN CORPUSCULAR HEMOGLOBIN 28.2 pg (26.0-30.0); MEAN CORPUSCULAR HGB CONC 33.3 pg (28.0-36.0); MEAN PLATELET VOLUME 6.8 fl; MONOCYTE ABSOLUTE 0.3 Th/cmm (0.3-1.0); NEUTROPHILE ABSOLUTE 6.2 Th/cmm (1.8-8.0); PLATELET COUNT 404 Th/cmm (150-400); RED BLOOD COUNT 4.17 Mil/cmm (4.30-5.70); RED CELL DISTRIBUTION WIDTH 14.7 % (11.5-20.0)
[2018-07-26 14:10] LABS: URINE SOURCE CLEAN C
[2018-07-26 14:15] LABS: ALB/GLOB RATIO 1.5 (1.0-1.8); ALBUMIN 4.3 gm/dL (4.2-5.5); ALKALINE PHOSPHATASE 147 U/L (34-104); AMYLASE SERUM 71 U/L (29-103); ANION GAP 13.4 (7.0-16.0); BILIRUBIN,TOTAL 0.5 mg/dL (0.3-1.0); BUN - UREA NITROGEN 17 mg/dL (7-25); CALCIUM SERUM 9.6 mg/dL (8.6-10.3); CARBON DIOXIDE 23.1 mEq/L (21.0-31.0); CREATININE - SERUM 1.1 mg/dL (0.7-1.3); GFR AFRICAN-AMERICAN > 60.0 ml/min (>90); GFR NON AFRICAN-AMERICAN > 60.0 ml/min; GLUCOSE 84 mg/dL (70-105); LIPASE 16 U/L (11-82); MAGNESIUM 1.9 mg/dL (1.9-2.7); PHENYTOIN < 2.5 ug/ml (10.0-20.0); PHOSPHOROUS 3.1 mg/dL (2.5-5.0); POTASSIUM SERUM 3.5 mEq/L (3.5-5.1); SGOT 20 U/L (13-39); SGPT/ALT 13 U/L (7-52); TOTAL PROTEIN,SERUM 7.1 gm/dL (6.0-8.3)
[2018-07-26 14:15] LABS: URINE BILIRUBIN NEGATIVE (NEGATIVE); URINE BLOOD SMALL (NEGATIVE); URINE GLUCOSE (UA) NEGATIVE (NEGATIVE); URINE KETONE NEGATIVE (NEGATIVE); URINE LEUKOCYTE ESTERASE NEGATIVE (NEGATIVE); URINE MICROSCOPIC INDICATED? YES; URINE NITRATE NEGATIVE (NEGATIVE); URINE PROTEIN NEGATIVE (NEGATIVE); URINE UROBILINOGEN 0.2 E.U./dL (0.2 - 1.0)
[2018-07-26 14:19] LABS: URINE CLARITY CLEAR (CLEAR); URINE COLOR YELLOW
[2018-07-26 14:21] LABS: CHLORIDE 84 mEq/L (98-107); SODIUM SERUM 117 mEq/L (136-145)
[2018-07-26 14:21] LABS: URINE WBC 0-2 /hpf (0-5)
[2018-07-26 14:22] LABS: URINE BACTERIA FEW /hpf (NONE SEEN); URINE EPITHELIAL CELLS FEW /lpf (FEW)
[2018-07-26 14:23] LABS: AMPHETAMINE URINE NEGATIVE (NEGATIVE); BARBITURATES URINE POSITIVE (NEGATIVE); BENZODIAZEPINES QUAL URINE NEGATIVE (NEGATIVE); CANNABINOID THC NEGATIVE (NEGATIVE); COCAINE METABOLITE QUAL URINE NEGATIVE (NEGATIVE); METHADONE URINE NEGATIVE (NEGATIVE); METHAMPHETAMINES QUAL URINE NEGATIVE (NEGATIVE); OPIATES (MORPHINE) QUAL. URINE NEGATIVE (NEGATIVE); PHENCYCLIDINE (PCP) URINE NEGATIVE (NEGATIVE); TRICYCLICS (TCA) QUAL. URINE NEGATIVE (NEGATIVE)
[2018-07-26] MEDS ORDERED: SODIUM CHLORIDE 3% IV ONE (14:30)
--- NOTE | 2018-07-26 14:46 | ED Physician Chart ---
ED Chief Complaint/HPI - Patient Information Date Seen:: 07/26/18 Time Seen:: 12:46 Chief Complaint:: nausea History of Present Illness:: nausea Allergies:: Allergies Allergy/AdvReac Type Severity Reaction Status Date / Time No Known Allergies Allergy Verified 02/24/18 15:21 Vitals:: Vital Signs - 8 hr 07/26/18 07/26/18 07/26/18 12:46 13:49 13:51 Temp 97.8 F HR 111 91 91 RR 20 18 18 BP 143/69 148/78 148/78 O2 Sat % 98 97 Review:: Nurse's Note Reviewed, Transfer documents Reviewed ED Review of Systems - Review of Systems General/Constitutional: No fever, No chills, No weight loss, No weakness, No diaphoresis, No edema, No loss of appetite Skin: No skin lesions, No rash, No bruising Head: No headache, No light-headedness Eyes: No loss of vision, No pain, No diplopia ENT: No earache, No nasal drainage, No sore throat, No tinnitus Neck: No neck pain, No swelling, No thyromegaly, No stiffness, No mass noted Cardio Vascular: No chest pain, No palpitations, No PND, No orthopnea, No edema Pulmonary: No SOB, No cough, No sputum, No wheezing GI: Nausea, No vomiting, No pain, No melena, No hematochezia, No constipation, No hematemesis G/U: No dysuria, No frequency, No hematuria Musculoskeletal: No bone or joint pain, No back pain, No muscle pain Endocrine: No polyuria, No polydipsia Psychiatric: No prior psych history, No depression, No anxiety, No suicidal ideation Hematopoietic: No bruising, No lymphadenopathy Allergic/Immuno: No urticaria, No angioedema Neurological: No syncope, No focal symptoms, No weakness, No paresthesia, No headache, No seizure, No dizziness, No confusion, No vertigo ED Past Medical History - Past Medical History Obtainable: No Past Medical History: HTN, DM, Dyslipidemia, Other (chronic kidney disease, unspecified; BPH; conversion disorder with seizures or convulsions; anemia; insomnia; hepatic failure, unspecified without coma) Psychiatricy History: Schizophrenia Family Medical History - Family Member Mother History Unknown: Yes Ethnicity: Unknown Living Status: Unknown ED Physical Exam - Physical Examination General/Constitutional: Awake, Well-developed, well-nourished, Alert, No distress, GCS 15, Non-toxic appearing, Ambulatory Other Gen/Cons comments:: slightly sleepy occasionally Head: Atraumatic Eyes: Lids, conjuctiva normal, PERRL, EOMI Skin: Nl inspection, No rash, No skin lesions, No ecchymosis, Well hydrated, No lymphadenopathy ENMT: External ears, nose nl, Nasal exam nl, Oropharynx nl Neck: Nontender, No nuchal rigidity, No stridor Respiratory: Nl effort/Exclusion, Clear to Auscultation, No Wheeze/Rhonchi/Rales Cardio Vascular: RRR, No murmur, gallop, rubs, NL S1 S2 GI: No tenderness/rebounding/guarding, No organomegaly, No hernia, Normal BS's, Nondistended, No mass/bruits, No McBurney tenderness : No CVA tenderness Other comments:: chronic rutherford Extremities: No tenderness or effusion, Full ROM, normal strength in all extremities, No edema, Normal digits & nails Neuro/Psych: Normal motor strength, No focal deficits Misc: Normal back, No paraspinal tenderness ED Labs/Radiology/EKG Results - Lab Results Results: Laboratory Tests 07/26/18 07/26/18 07/26/18 13:43 13:43 14:00 WBC 8.0 RBC 4.17 L Hgb 11.8 L Hct 35.3 L MCV 84.7 MCH 28.2 MCHC Differential 33.3 RDW 14.7 Plt Count 404 H MPV 6.8 Neutrophils % 77.8 Lymphocytes % 16.1 L Monocytes % 3.8 Eosinophils % 1.1 Basophils % 1.2 Sodium 117 L* Potassium 3.5 Chloride 84 L Carbon Dioxide 23.1 Anion Gap 13.4 BUN 17 Creatinine 1.1 Est GFR ( Amer) > 60.0 Est GFR (Non-Af Amer) > 60.0 BUN/Creatinine Ratio 15.5 Glucose 84 Calcium 9.6 Phosphorus 3.1 Magnesium 1.9 Total Bilirubin 0.5 AST 20 ALT 13 Alkaline Phosphatase 147 H Total Protein 7.1 Albumin 4.3 Globulin 2.8 Albumin/Globulin Ratio 1.5 Amylase 71 Lipase 16 Urine Source CLEAN C Urine Color YELLOW Urine Clarity CLEAR Urine pH 7.0 Ur Specific [place] <= 1.005 Urine Protein NEGATIVE Urine Glucose (UA) NEGATIVE Urine Ketones NEGATIVE Urine Blood SMALL H Urine Nitrate NEGATIVE Urine Bilirubin NEGATIVE Urine Urobilinogen 0.2 Ur Leukocyte Esterase NEGATIVE Urine RBC 2-5 H Urine WBC 0-2 Ur Epithelial Cells FEW Urine Bacteria FEW Urine Opiates Screen Urine Methadone Screen Ur Barbiturates Screen Phenytoin < 2.5 L Ur Tricyclics Screen Ur Phencyclidine Scrn Amphetamines Screen U Methamphetamines Scrn U Benzodiazepines Scrn U Cocaine Metab Screen U Cannabinoids Screen 07/26/18 14:00 WBC RBC Hgb Hct MCV MCH MCHC Differential RDW Plt Count MPV Neutrophils % Lymphocytes % Monocytes % Eosinophils % Basophils % Sodium Potassium Chloride Carbon Dioxide Anion Gap BUN Creatinine Est GFR ( Amer) Est GFR (Non-Af Amer) BUN/Creatinine Ratio Glucose Calcium Phosphorus Magnesium Total Bilirubin AST ALT Alkaline Phosphatase Total Protein Albumin Globulin Albumin/Globulin Ratio Amylase Lipase Urine Source Urine Color Urine Clarity Urine pH Ur Specific [place] Urine Protein Urine Glucose (UA) Urine Ketones Urine Blood Urine Nitrate Urine Bilirubin Urine Urobilinogen Ur Leukocyte Esterase Urine RBC Urine WBC Ur Epithelial Cells Urine Bacteria Urine Opiates Screen NEGATIVE Urine Methadone Screen NEGATIVE Ur Barbiturates Screen POSITIVE H Phenytoin Ur Tricyclics Screen NEGATIVE Ur Phencyclidine Scrn NEGATIVE Amphetamines Screen NEGATIVE U Methamphetamines Scrn NEGATIVE U Benzodiazepines Scrn NEGATIVE U Cocaine Metab Screen NEGATIVE U Cannabinoids Screen NEGATIVE ED Assessment - Assessment General Assessment: EKG from 14:39:51 p.m.: normal sinus rhythm, movement artifact, PAC. CXR: NAD per my reading. Dr. Norris called back. He will admit the patient to telemetry. He told me to not run the hypertonic saline and that he will run normal saline instead. ED Septic Shock - . Is Septic Shock (SBP<90, OR Lactate>4 mmol\L) present?: No - <6hrs of presentation: Vital Signs: Vital Signs - 8 hr 07/26/18 07/26/18 07/26/18 12:46 13:49 13:51 Temp 97.8 F HR 111 91 91 RR 20 18 18 BP 143/69 148/78 148/78 O2 Sat % 98 97 ED Reassessment (Disposition) - Reassessment Reassessment Condition:: Unchanged - Diagnosis Diagnosis:: Hyponatremia Nausea sub-therapeutic dilantin level in a patient with a h/o seizures conversion disorder with seizures or convulsions Paranoid schizophrenia Chronic rutherford chronic kidney disease, unspecified BPH anemia insomnia hepatic failure, unspecified without coma - Patient Disposition Discharge/Transfer:: Acute Care w/in this hosp Admitted to:: Telemetry Condition at Disposition:: Stable, Unchanged
[2018-07-26] MEDS ORDERED: Magnesium Hydroxide (MOM) 30 mL UDC PO PRN (14:48)
[2018-07-26] MEDS ORDERED: Ipratropium Neb 0.5 mg/2.5 mL UD IH PRN (14:53)
[2018-07-26] MEDS ORDERED: Albuterol Nebulizer 2.5mg/3mL HHN PRN (14:53)
[2018-07-26] MEDS ORDERED: guaiFENesin 200 MG/10 ML UDC PO PRN (14:53)
[2018-07-26] MEDS ORDERED: Epoetin Alfa 20000 Units/mL Vial SUBQ SCH (15:00)
[2018-07-26] MEDS: Sodium Chloride 0.9% 1,000 ML IV SCH (15:35)
--- NOTE | 2018-07-26 16:29 | History & Physical ---
ADMIT DATE: 07/26/2018 CHIEF COMPLAINT: Nausea and vomiting. HISTORY OF PRESENT ILLNESS: This is a 58-year-old male with history of diabetes, hypertension, high cholesterol, psych disorder, anemia, seizure, admitted from nursing facility secondary to not feeling well with nausea and vomiting. The patient was evaluated in the ER by Dr. King noted to have a sodium of 117. His baseline was 134. The patient admitted for further management. The patient also noted to have low anti-seizure medication level. PAST MEDICAL HISTORY: As mentioned in history of present illness. PAST SURGICAL HISTORY: Denies surgeries in the past. ALLERGIES: No known drug allergies. MEDICATIONS: The patient is on Dilantin, Keppra, Haldol, ____, lactulose, Clozaril, Lipitor, Colace, iron, gemfibrozil, hydralazine, metoprolol, and sodium chloride. FAMILY HISTORY: Noncontributory. SOCIAL HISTORY: The patient is a [facility] patient requiring 24-hour total care. REVIEW OF SYSTEMS: This is limited secondary to the patient's current mental state. We will try to obtain more detailed. Review of system at a later date by talking to family members as well as from nursing staff at [facility]. PHYSICAL EXAMINATION: VITAL SIGNS: Blood pressure 143/69, respirations 20, pulse 111, temperature 97.8. GENERAL: An elderly male who appears his stated age. NECK: Supple. LUNGS: Equal breath sounds, few rhonchi. HEART: Regular rate and rhythm without appreciable murmurs. ABDOMEN: Soft, globular. EXTREMITIES: Positive excoriation. NEUROLOGIC: Limited. LABORATORY DATA: WBC 8.0, hemoglobin was 11.8, platelets 404. Sodium 117, potassium 3.5, BUN 17, creatinine 1.1, glucose of 147. A small blood in the urine, positive barbiturate, and negative Dilantin is less than 25. ASSESSMENT: 1. Hyponatremia. 2. Generalized weakness. 3. Tachycardia. 4. Diabetes. 5. Hypertension. 6. Hypercholesterolemia. 7. Seizure disorder. 8. Schizoaffective disorder. PLAN: We will continue the patient on aggressive IV hydration. We will ____ 3% hypertonic solution for now. We will give the patient normal saline. We will refer the patient to Nephrology as well as Psychiatry. We will review the patient's medication that could be causing his hyponatremia. We will continue to monitor the patient closely. We will admit the patient on telemetry. JOB# [id number]
[2018-07-26] MEDS ORDERED: CLOZAPINE 50 MG PO SCH (17:00)
[2018-07-26 17:52] VITALS: BP 160/95
[2018-07-26] MEDS: INSULIN ASPART, RECOMBINANT 100 UNITS/ML SUBQ SCH ×2 (18:25→20:38)
[2018-07-26] MEDS ORDERED: Non-Formulary Item 1 EA (Cranberry Fruit Extract [Cranberry] 425 MG) PO SCH (21:00)
[2018-07-26] MEDS: Atorvastatin Calcium 10 MG TAB PO SCH (21:37)
[2018-07-27] MEDS: Sodium Chloride 0.9% 1,000 ML IV SCH (00:40)
[2018-07-27] MEDS: INSULIN ASPART, RECOMBINANT 100 UNITS/ML SUBQ SCH ×4 (07:42→20:52)
--- NOTE | 2018-07-27 07:50 | Diagnostic Imaging Report ---
CHEST X-RAY: AP view Indication: Cough COMPARISON: 02/24/2018 FINDINGS: There is no focal consolidation or pleural effusions The heart is normal in size. Atherosclerosis is noted. Degenerative changes of the spine are noted. IMPRESSION: No focal consolidation or evidence of CHF. Atherosclerotic vascular disease.
[2018-07-27] MEDS ORDERED: Pneumococcal Vaccine 0.5 mL Vial IM ONE (09:00)
[2018-07-27] MEDS: Ferrous Sulfate 325 MG TAB PO SCH (10:27)
--- NOTE | 2018-07-27 14:11 | Internal Medicine Prog Note ---
Internal Medicine Subjective - Subjective Service Date: 07/27/18 Patient seen and examined:: with staff Patient is:: awake, verbal, ambulating Per staff patient has:: tolerating meds Internal Medicine Objective - Results Result Diagrams: 07/26/18 13:43 07/26/18 13:43 Recent Labs: Laboratory Last Values WBC 8.0 Th/cmm (4.8-10.8) 07/26/18 13:43 RBC 4.17 Mil/cmm (4.30-5.70) L 07/26/18 13:43 Hgb 11.8 gm/dL (12-16) L 07/26/18 13:43 Hct 35.3 % (41.0-60) L 07/26/18 13:43 MCV 84.7 fl (80-99) 07/26/18 13:43 MCH 28.2 pg (26.0-30.0) 07/26/18 13:43 MCHC Differential 33.3 pg (28.0-36.0) 07/26/18 13:43 RDW 14.7 % (11.5-20.0) 07/26/18 13:43 Plt Count 404 Th/cmm (150-400) H 07/26/18 13:43 MPV 6.8 fl 07/26/18 13:43 Neutrophils % 77.8 % (40.0-80.0) 07/26/18 13:43 Lymphocytes % 16.1 % (20.0-50.0) L 07/26/18 13:43 Monocytes % 3.8 % (2.0-10.0) 07/26/18 13:43 Eosinophils % 1.1 % (0.0-5.0) 07/26/18 13:43 Basophils % 1.2 % (0.0-2.0) 07/26/18 13:43 Sodium 117 mEq/L (136-145) L* 07/26/18 13:43 Potassium 3.5 mEq/L (3.5-5.1) 07/26/18 13:43 Chloride 84 mEq/L (98-107) L 07/26/18 13:43 Carbon Dioxide 23.1 mEq/L (21.0-31.0) 07/26/18 13:43 Anion Gap 13.4 (7.0-16.0) 07/26/18 13:43 BUN 17 mg/dL (7-25) 07/26/18 13:43 Creatinine 1.1 mg/dL (0.7-1.3) 07/26/18 13:43 Est GFR ( Amer) > 60.0 ml/min (>90) 07/26/18 13:43 Est GFR (Non-Af Amer) > 60.0 ml/min 07/26/18 13:43 BUN/Creatinine Ratio 15.5 07/26/18 13:43 Glucose 84 mg/dL (70-105) 07/26/18 13:43 POC Glucose 205 MG/DL (70 - 105) H 07/27/18 11:51 Calcium 9.6 mg/dL (8.6-10.3) 07/26/18 13:43 Phosphorus 3.1 mg/dL (2.5-5.0) 07/26/18 13:43 Magnesium 1.9 mg/dL (1.9-2.7) 07/26/18 13:43 Total Bilirubin 0.5 mg/dL (0.3-1.0) 07/26/18 13:43 AST 20 U/L (13-39) 07/26/18 13:43 ALT 13 U/L (7-52) 07/26/18 13:43 Alkaline Phosphatase 147 U/L (34-104) H 07/26/18 13:43 Ammonia 80 umol/L (16-53) H 07/26/18 13:43 Total Protein 7.1 gm/dL (6.0-8.3) 07/26/18 13:43 Albumin 4.3 gm/dL (4.2-5.5) 07/26/18 13:43 Globulin 2.8 gm/dL 07/26/18 13:43 Albumin/Globulin Ratio 1.5 (1.0-1.8) 07/26/18 13:43 Amylase 71 U/L (29-103) 07/26/18 13:43 Lipase 16 U/L (11-82) 07/26/18 13:43 Urine Source CLEAN C 07/26/18 14:00 Urine Color YELLOW 07/26/18 14:00 Urine Clarity CLEAR (CLEAR) 07/26/18 14:00 Urine pH 7.0 (4.6 - 8.0) 07/26/18 14:00 Ur Specific [place] <= 1.005 (1.005-1.030) 07/26/18 14:00 Urine Protein NEGATIVE mg/dL (NEGATIVE) 07/26/18 14:00 Urine Glucose (UA) NEGATIVE mg/dL (NEGATIVE) 07/26/18 14:00 Urine Ketones NEGATIVE mg/dL (NEGATIVE) 07/26/18 14:00 Urine Blood SMALL (NEGATIVE) H 07/26/18 14:00 Urine Nitrate NEGATIVE (NEGATIVE) 07/26/18 14:00 Urine Bilirubin NEGATIVE (NEGATIVE) 07/26/18 14:00 Urine Urobilinogen 0.2 E.U./dL (0.2 - 1.0) 07/26/18 14:00 Ur Leukocyte Esterase NEGATIVE (NEGATIVE) 07/26/18 14:00 Urine RBC 2-5 /hpf (0-5) H 07/26/18 14:00 Urine WBC 0-2 /hpf (0-5) 07/26/18 14:00 Ur Epithelial Cells FEW /lpf (FEW) 07/26/18 14:00 Urine Bacteria FEW /hpf (NONE SEEN) 07/26/18 14:00 Urine Opiates Screen NEGATIVE (NEGATIVE) 07/26/18 14:00 Urine Methadone Screen NEGATIVE (NEGATIVE) 07/26/18 14:00 Ur Barbiturates Screen POSITIVE (NEGATIVE) H 07/26/18 14:00 Phenytoin < 2.5 ug/ml (10.0-20.0) L 07/26/18 13:43 Ur Tricyclics Screen NEGATIVE (NEGATIVE) 07/26/18 14:00 Ur Phencyclidine Scrn NEGATIVE (NEGATIVE) 07/26/18 14:00 Amphetamines Screen NEGATIVE (NEGATIVE) 07/26/18 14:00 U Methamphetamines Scrn NEGATIVE (NEGATIVE) 07/26/18 14:00 U Benzodiazepines Scrn NEGATIVE (NEGATIVE) 07/26/18 14:00 U Cocaine Metab Screen NEGATIVE (NEGATIVE) 07/26/18 14:00 U Cannabinoids Screen NEGATIVE (NEGATIVE) 07/26/18 14:00 - Physical Exam Vitals and I&O: Vital Signs Temp 97.3 F 07/27/18 11:47 Pulse 95 07/27/18 11:47 Resp 20 07/27/18 11:47 BP 130/79 07/27/18 11:47 Pulse Ox 100 07/27/18 11:47 Intake & Output 07/26/18 07/27/18 07/27/18 18:59 06:59 18:59 Intake Total 250 908.333 375 Output Total 2310 Balance 250 908.333 -1935 Weight (lbs) 200 lb 3.2 oz 196 lb Intake: Intake, IV Amount 250 908.333 D5-0.9%Ns 1,000 ml @ 125 250 mls/hr IV .Q8H [facility] Rx#: [id number] Sodium Chloride 0.9% 1, 908.333 000 ml @ 100 mls/hr IV . Q10H [facility] Rx#:[id number] Oral 375 Output: Urine 2310 Other: # Bowel Movements 1 Weight Source Estimated Bedscale Active Medications: Current Medications Acetaminophen (Tylenol) 650 mg PO Q4H PRN PRN Reason: Pain Or Fever above 101 Stop: 09/24/18 14:52 Albuterol Sulfate (Albuterol 2.5mg/3ml Neb Ud) 2.5 mg HHN Q2HRT PRN PRN Reason: Shortness of Breath or Wheeze Stop: 09/24/18 14:52 Amlodipine Besylate (Norvasc) 10 mg PO DAILY [facility] Stop: 09/25/18 08:59 Last Admin: 07/27/18 10:09 Dose: 10 mg Atorvastatin Calcium (Lipitor) 10 mg PO HS [facility]; Protocol Stop: 09/24/18 20:59 Last Admin: 07/26/18 21:37 Dose: Not Given Clozapine (Clozaril) 200 mg PO [facility]; Protocol Stop: 09/24/18 20:59 Docusate Sodium (Colace) 250 mg PO BID [facility] Stop: 09/24/18 16:59 Last Admin: 07/27/18 10:27 Dose: 250 mg Epoetin Pankaj (Epogen) 10,000 units SUBQ QTHUR [facility] Stop: 09/24/18 14:59 Last Admin: 07/26/18 18:34 Dose: Not Given Ferrous Sulfate (Iron) 325 mg PO DAILY [facility] Stop: 09/25/18 08:59 Last Admin: 07/27/18 10:27 Dose: 325 mg Gemfibrozil (Lopid) 600 mg PO BID [facility] Stop: 09/24/18 16:59 Last Admin: 07/27/18 10:27 Dose: 600 mg Guaifenesin (Robitussin) 200 mg PO Q4HR PRN PRN Reason: Cough or Congestion Stop: 09/24/18 14:52 Heparin Sodium (Porcine) (Heparin) 5,000 units SUBQ Q12HR [facility] Stop: 09/24/18 20:59 Last Admin: 07/26/18 21:37 Dose: Not Given Hydralazine HCl (Apresoline) 25 mg PO TID [facility] Stop: 09/24/18 20:59 Last Admin: 07/27/18 10:09 Dose: 25 mg Sodium Chloride (Nacl 0.9%) 1,000 mls @ 100 mls/hr IV .Q10H [facility] Stop: 09/24/18 14:59 Last Admin: 07/27/18 00:40 Dose: 100 mls/hr Insulin Aspart (Novolog) 0 units SUBQ ACHS [facility]; Protocol Stop: 09/24/18 16:29 Last Admin: 07/27/18 13:30 Dose: 2 units Ipratropium [place] (Atrovent Neb 0.5mg/2.5ml) 0.5 mg IH Q2HRT PRN PRN Reason: Shortness of Breath or Wheeze Stop: 09/24/18 14:52 Levetiracetam (Keppra) 500 mg PO BID [facility] Stop: 09/24/18 16:59 Last Admin: 07/27/18 10:10 Dose: 500 mg Magnesium Hydroxide (Milk Of Magnesia) 30 ml PO HS PRN PRN Reason: Constipation Stop: 09/24/18 14:47 Metoprolol Tartrate (Lopressor) 25 mg PO BID [facility] Stop: 09/24/18 16:59 Last Admin: 07/27/18 10:09 Dose: 25 mg Miscellaneous (Clozapine [Versacloz]) 50 mg PO BID [facility] Stop: 09/24/18 16:59 Last Admin: 07/26/18 17:57 Dose: Not Given Ondansetron HCl (Zofran) 4 mg IV Q8H PRN PRN Reason: Nausea / Vomiting Stop: 09/24/18 14:52 Phenytoin (Dilantin) 100 mg PO BID [facility] Stop: 09/24/18 16:59 Last Admin: 07/27/18 10:27 Dose: 100 mg Sodium Chloride (Nacl Tab) 2 gm PO BID [facility] Stop: 09/24/18 16:59 Last Admin: 07/27/18 10:27 Dose: 2 gm General: alert HEENT: NC/AT, PERRLA Neck: Supple Lungs: CTAB Cardiovascular: RRR, Normal S1, Normal S2, without murmur Abdomen: soft, non-tender, non-distended, positive bowel sound Extremities: excoriation Neurological: alert Internal Medicine Assmt/Plan - Assessment Assessment: hyponatremia generalized weakness tachycardia dm htn HDL seizure disorder - Plan Plan: continue ivf for hydration monitor electrolytes follow up labs in am continue current plan of care
[2018-07-27] MEDS: Atorvastatin Calcium 10 MG TAB PO SCH (20:34)
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
[2018-07-28] MEDS: Sodium Chloride 0.9% 1,000 ML IV SCH ×3 (02:31→19:50)
[2018-07-28 05:39] LABS: % BASOPHILS 0.4 % (0.0-2.0); % EOSINOPHILS 1.9 % (0.0-5.0); % LYMPHOCYTES 21.9 % (20.0-50.0); % MONOCYTES 6.6 % (2.0-10.0); % NEUTROPHILS 69.2 % (40.0-80.0); EOSINOPHILE ABSOLUTE 0.1 Th/cmm (0.1-0.4); HEMATOCRIT 33.8 % (41.0-60); HEMOGLOBIN 11.4 gm/dL (12-16); LYMPHOCYTE ABSOLUTE 1.7 Th/cmm (1.5-3.0); MEAN CELL VOLUME 83.9 fl (80-99); MEAN CORPUSCULAR HEMOGLOBIN 28.3 pg (26.0-30.0); MEAN CORPUSCULAR HGB CONC 33.7 pg (28.0-36.0); MONOCYTE ABSOLUTE 0.5 Th/cmm (0.3-1.0); NEUTROPHILE ABSOLUTE 5.4 Th/cmm (1.8-8.0); PLATELET COUNT 393 Th/cmm (150-400); RED BLOOD COUNT 4.03 Mil/cmm (4.30-5.70); RED CELL DISTRIBUTION WIDTH 15.5 % (11.5-20.0); WHITE BLOOD COUNT 7.7 Th/cmm (4.8-10.8)
[2018-07-28 05:53] LABS: ANION GAP 10.9 (7.0-16.0); BUN - UREA NITROGEN 22 mg/dL (7-25); CALCIUM SERUM 9.4 mg/dL (8.6-10.3); CARBON DIOXIDE 22.5 mEq/L (21.0-31.0); CHLORIDE 106 mEq/L (98-107); CREATININE - SERUM 1.5 mg/dL (0.7-1.3); GFR AFRICAN-AMERICAN > 60.0 ml/min (>90); GFR NON AFRICAN-AMERICAN 50.9 ml/min; GLUCOSE 90 mg/dL (70-105); POTASSIUM SERUM 4.4 mEq/L (3.5-5.1); URIC ACID 4.5 mg/dL (4.4-7.6)
[2018-07-28 05:55] LABS: SODIUM SERUM 135 mEq/L (136-145)
[2018-07-28] MEDS: INSULIN ASPART, RECOMBINANT 100 UNITS/ML SUBQ SCH ×4 (06:53→21:10)
[2018-07-28] MEDS: Ferrous Sulfate 325 MG TAB PO SCH (08:27)
--- NOTE | 2018-07-28 10:48 | Consultation ---
DATE OF CONSULTATION: 07/27/2018 ATTENDING: Satni Norris D.O. REASON FOR CONSULTATION: Hyponatremia. HISTORY OF PRESENT ILLNESS: This is a 58-year-old male with past medical history of hyponatremia who came in because of nausea. Few hours prior to admission, the patient developed nausea. As per [facility] staff, the patient had emesis, which the patient contradicts. He denied any ongoing diarrhea. He admitted to drinking lots of water. He is currently on sodium chloride tablets. PAST MEDICAL HISTORY: 1. Chronic hyponatremia. Labs drawn at [facility] a year ago revealed sodium of 112. He was maintained on sodium chloride tablets. 2. BPH. 3. Anemia of chronic disease. 4. Type 2 diabetes mellitus. 5. Dyslipidemia. 6. Essential hypertension. 7. Epilepsy. 8. Paranoid schizophrenia. PAST SURGICAL HISTORY: Status post placement as well as removal of suprapubic tube. CURRENT MEDICATIONS: He is currently on acetaminophen, albuterol/ipratropium, amlodipine, atorvastatin, clozapine, cranberry, docusate sodium, Epogen, ferrous sulfate, gemfibrozil, guaifenesin, hydralazine, aspart, Keppra, magnesium hydroxide, metoprolol, ondansetron, phenantoin, sodium chloride tablets. ALLERGIES: No known drug allergies. SOCIAL AND FAMILY HISTORY: I was not able to obtain directly from the patient because he is somewhat disoriented and confused. REVIEW OF SYSTEMS: Again, I was not able to obtain accurate information from the patient. However, he insists that he does not have any vomiting, but was nauseous only once that he has no ongoing diarrhea. PHYSICAL EXAMINATION: GENERAL: The patient is alert, confused, disoriented, but not in distress. VITAL SIGNS: His blood pressure is 130/79, pulse 95, temperature 97.3 degrees. SKIN: Good turgor, warm, no rash, no jaundice appreciated. HEENT: Head: Normocephalic, atraumatic. Eyes: Extraocular muscles intact. Pupils equal, round, reactive to light and accommodates. Anicteric sclerae. Pale conjunctivae. Nose: Midline nasal septum. Mouth: Moist mucosa, adequate dentition. NECK: Supple, no adenopathy, no thyromegaly, no bruits. Trachea palpated in the midline. CHEST AND CVS: S1, S2. No rub, murmur, nor gallop appreciated. Point of maximal impulse fifth intercostal space, left midclavicular line. No abdominal or femoral bruits appreciated. LUNGS: Equal expansion. No use of accessory muscles. No supraclavicular retractions. Decreased breath sounds, clear to auscultation without any wheeze. ABDOMEN: Mildly globular, soft, positive for bowel sounds. No bruits either diastolic or systolic. RECTAL: The patient refused. GENITOURINARY: Normal appearing male genitalia. MUSCULOSKELETAL: No effusions present in his joints, but the patient uncooperative and unable to assess his range of motion. EXTREMITIES: No evidence of any edema, cyanosis nor clubbing with palpable femoral, popliteal and dorsalis pedis pulses. NEUROLOGIC: The patient is awake; however, he is not able to follow my neuro commands due to his mental capacity and history of psychosis. Thus, I was not able to further pursue my neuro exam. LABS: Did reveal white count 8, hemoglobin is 11.8, hematocrit 35.3, sodium 117, potassium 3.5, chloride 84, CO2 23, BUN 17, creatinine 1.1, glucose is 84. Ammonia is 80, alkaline phosphatase is 147. IMPRESSION: 1. 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 The patient admitted to drinking lots of water. 2. Nausea, etiology unknown at the present time, but possibly due to medications. Since, he is taking lot of medications that with nausea and vomiting side effects. 3. Benign prostatic hypertrophy. 4. Anemia of chronic disease. 5. Type 2 diabetes mellitus. 6. Dyslipidemia. 7. Essential hypertension. 8. Epilepsy. 9. Paranoid schizophrenia. 10. Hepatic/metabolic encephalopathy. PLAN: 1. Continue on with D5 NS since patient's hyponatremia is a chronic condition. He currently does not have any neurological manifestations. There is no need to acutely increase his sodium with hypertonic saline. 2. Continue with sodium chloride tablets. 3. Fluid restriction. 4. Urine sodium. 5. Serum osmolarity as well as uric acid. 6. Consider starting the patient on Florinef. Thank you, Dr. Norris, for this consult. We will follow the patient closely with you. JOB# [id number]
--- NOTE | 2018-07-28 14:09 | Internal Medicine Prog Note ---
Internal Medicine Subjective - Subjective Service Date: 07/28/18 Patient is:: awake, verbal, ambulating Per staff patient has:: tolerating meds Internal Medicine Objective - Results Result Diagrams: 07/28/18 05:05 07/28/18 05:05 Recent Labs: Laboratory Last Values WBC 7.7 Th/cmm (4.8-10.8) 07/28/18 05:05 RBC 4.03 Mil/cmm (4.30-5.70) L 07/28/18 05:05 Hgb 11.4 gm/dL (12-16) L 07/28/18 05:05 Hct 33.8 % (41.0-60) L 07/28/18 05:05 MCV 83.9 fl (80-99) 07/28/18 05:05 MCH 28.3 pg (26.0-30.0) 07/28/18 05:05 MCHC Differential 33.7 pg (28.0-36.0) 07/28/18 05:05 RDW 15.5 % (11.5-20.0) 07/28/18 05:05 Plt Count 393 Th/cmm (150-400) 07/28/18 05:05 MPV 7.0 fl 07/28/18 05:05 Neutrophils % 69.2 % (40.0-80.0) 07/28/18 05:05 Lymphocytes % 21.9 % (20.0-50.0) 07/28/18 05:05 Monocytes % 6.6 % (2.0-10.0) 07/28/18 05:05 Eosinophils % 1.9 % (0.0-5.0) 07/28/18 05:05 Basophils % 0.4 % (0.0-2.0) 07/28/18 05:05 Sodium 135 mEq/L (136-145) L D 07/28/18 05:05 Potassium 4.4 mEq/L (3.5-5.1) 07/28/18 05:05 Chloride 106 mEq/L (98-107) 07/28/18 05:05 Carbon Dioxide 22.5 mEq/L (21.0-31.0) 07/28/18 05:05 Anion Gap 10.9 (7.0-16.0) 07/28/18 05:05 BUN 22 mg/dL (7-25) 07/28/18 05:05 Creatinine 1.5 mg/dL (0.7-1.3) H 07/28/18 05:05 Est GFR ( Amer) > 60.0 ml/min (>90) 07/28/18 05:05 Est GFR (Non-Af Amer) 50.9 ml/min 07/28/18 05:05 BUN/Creatinine Ratio 14.7 07/28/18 05:05 Glucose 90 mg/dL (70-105) 07/28/18 05:05 POC Glucose 113 MG/DL (70 - 105) H 07/28/18 11:37 Uric Acid 4.5 mg/dL (4.4-7.6) 07/28/18 05:05 Calcium 9.4 mg/dL (8.6-10.3) 07/28/18 05:05 Phosphorus 3.1 mg/dL (2.5-5.0) 07/26/18 13:43 Magnesium 1.9 mg/dL (1.9-2.7) 07/26/18 13:43 Total Bilirubin 0.5 mg/dL (0.3-1.0) 07/26/18 13:43 AST 20 U/L (13-39) 07/26/18 13:43 ALT 13 U/L (7-52) 07/26/18 13:43 Alkaline Phosphatase 147 U/L (34-104) H 07/26/18 13:43 Ammonia 80 umol/L (16-53) H 07/26/18 13:43 Total Protein 7.1 gm/dL (6.0-8.3) 07/26/18 13:43 Albumin 4.3 gm/dL (4.2-5.5) 07/26/18 13:43 Globulin 2.8 gm/dL 07/26/18 13:43 Albumin/Globulin Ratio 1.5 (1.0-1.8) 07/26/18 13:43 Amylase 71 U/L (29-103) 07/26/18 13:43 Lipase 16 U/L (11-82) 07/26/18 13:43 Urine Source CLEAN C 07/26/18 14:00 Urine Color YELLOW 07/26/18 14:00 Urine Clarity CLEAR (CLEAR) 07/26/18 14:00 Urine pH 7.0 (4.6 - 8.0) 07/26/18 14:00 Ur Specific [place] <= 1.005 (1.005-1.030) 07/26/18 14:00 Urine Protein NEGATIVE mg/dL (NEGATIVE) 07/26/18 14:00 Urine Glucose (UA) NEGATIVE mg/dL (NEGATIVE) 07/26/18 14:00 Urine Ketones NEGATIVE mg/dL (NEGATIVE) 07/26/18 14:00 Urine Blood SMALL (NEGATIVE) H 07/26/18 14:00 Urine Nitrate NEGATIVE (NEGATIVE) 07/26/18 14:00 Urine Bilirubin NEGATIVE (NEGATIVE) 07/26/18 14:00 Urine Urobilinogen 0.2 E.U./dL (0.2 - 1.0) 07/26/18 14:00 Ur Leukocyte Esterase NEGATIVE (NEGATIVE) 07/26/18 14:00 Urine RBC 2-5 /hpf (0-5) H 07/26/18 14:00 Urine WBC 0-2 /hpf (0-5) 07/26/18 14:00 Ur Epithelial Cells FEW /lpf (FEW) 07/26/18 14:00 Urine Bacteria FEW /hpf (NONE SEEN) 07/26/18 14:00 Ur Random Sodium 79 mmol/L 07/27/18 18:30 Urine Opiates Screen NEGATIVE (NEGATIVE) 07/26/18 14:00 Urine Methadone Screen NEGATIVE (NEGATIVE) 07/26/18 14:00 Ur Barbiturates Screen POSITIVE (NEGATIVE) H 07/26/18 14:00 Phenytoin < 2.5 ug/ml (10.0-20.0) L 07/26/18 13:43 Ur Tricyclics Screen NEGATIVE (NEGATIVE) 07/26/18 14:00 Ur Phencyclidine Scrn NEGATIVE (NEGATIVE) 07/26/18 14:00 Amphetamines Screen NEGATIVE (NEGATIVE) 07/26/18 14:00 U Methamphetamines Scrn NEGATIVE (NEGATIVE) 07/26/18 14:00 U Benzodiazepines Scrn NEGATIVE (NEGATIVE) 07/26/18 14:00 U Cocaine Metab Screen NEGATIVE (NEGATIVE) 07/26/18 14:00 U Cannabinoids Screen NEGATIVE (NEGATIVE) 07/26/18 14:00 - Physical Exam Vitals and I&O: Vital Signs Temp 98.3 F 07/28/18 11:41 Pulse 80 07/28/18 11:41 Resp 19 07/28/18 11:41 BP 122/59 07/28/18 11:41 Pulse Ox 99 07/28/18 11:41 Intake & Output 07/27/18 07/28/18 07/28/18 18:59 06:59 18:59 Intake Total 1375 3050 595 Output Total 2310 4085 Balance -935 -1035 595 Weight (lbs) 196 lb 196 lb Intake: Intake, IV Amount 1000 595 Sodium Chloride 0.9% 1, 1000 595 000 ml @ 100 mls/hr IV . Q10H [facility] Rx#:[id number] Oral 375 3050 Output: Urine 2310 4085 Other: # Bowel Movements 1 1 Weight Source Bedscale Bedscale Active Medications: Current Medications Acetaminophen (Tylenol) 650 mg PO Q4H PRN PRN Reason: Pain Or Fever above 101 Stop: 09/24/18 14:52 Albuterol Sulfate (Albuterol 2.5mg/3ml Neb Ud) 2.5 mg HHN Q2HRT PRN PRN Reason: Shortness of Breath or Wheeze Stop: 09/24/18 14:52 Amlodipine Besylate (Norvasc) 10 mg PO DAILY [facility] Stop: 09/25/18 08:59 Last Admin: 07/28/18 08:27 Dose: 10 mg Atorvastatin Calcium (Lipitor) 10 mg PO HS [facility]; Protocol Stop: 09/24/18 20:59 Last Admin: 07/27/18 20:34 Dose: 10 mg Clozapine (Clozaril) 200 mg PO HS [facility]; Protocol Stop: 09/24/18 20:59 Docusate Sodium (Colace) 250 mg PO BID [facility] Stop: 09/24/18 16:59 Last Admin: 07/28/18 08:25 Dose: 250 mg Epoetin Pankaj (Epogen) 10,000 units SUBQ QTHUR [facility] Stop: 09/24/18 14:59 Last Admin: 07/26/18 18:34 Dose: Not Given Ferrous Sulfate (Iron) 325 mg PO DAILY [facility] Stop: 09/25/18 08:59 Last Admin: 07/28/18 08:27 Dose: 325 mg Fludrocortisone Acetate (Florinef) 0.1 mg PO DAILY [facility] Stop: 09/25/18 14:44 Last Admin: 07/28/18 08:25 Dose: 0.1 mg Gemfibrozil (Lopid) 600 mg PO BID [facility] Stop: 09/24/18 16:59 Last Admin: 07/28/18 08:27 Dose: 600 mg Guaifenesin (Robitussin) 200 mg PO Q4HR PRN PRN Reason: Cough or Congestion Stop: 09/24/18 14:52 Heparin Sodium (Porcine) (Heparin) 5,000 units SUBQ Q12HR [facility] Stop: 09/24/18 20:59 Last Admin: 07/28/18 08:29 Dose: 5,000 units Hydralazine HCl (Apresoline) 25 mg PO TID [facility] Stop: 09/24/18 20:59 Last Admin: 07/28/18 08:26 Dose: 25 mg Sodium Chloride (Nacl 0.9%) 1,000 mls @ 80 mls/hr IV .[id number] [facility] Stop: 09/26/18 12:44 Insulin Aspart (Novolog) 0 units SUBQ ACHS [facility]; Protocol Stop: 09/24/18 16:29 Last Admin: 07/28/18 11:41 Dose: Not Given Ipratropium [place] (Atrovent Neb 0.5mg/2.5ml) 0.5 mg IH Q2HRT PRN PRN Reason: Shortness of Breath or Wheeze Stop: 09/24/18 14:52 Levetiracetam (Keppra) 500 mg PO BID [facility] Stop: 09/24/18 16:59 Last Admin: 07/28/18 08:26 Dose: 500 mg Magnesium Hydroxide (Milk Of Magnesia) 30 ml PO HS PRN PRN Reason: Constipation Stop: 09/24/18 14:47 Metoprolol Tartrate (Lopressor) 25 mg PO BID [facility] Stop: 09/24/18 16:59 Last Admin: 07/28/18 08:27 Dose: 25 mg Miscellaneous (Clozapine [Versacloz]) 50 mg PO BID [facility] Stop: 09/24/18 16:59 Last Admin: 07/26/18 17:57 Dose: Not Given Ondansetron HCl (Zofran) 4 mg IV Q8H PRN PRN Reason: Nausea / Vomiting Stop: 09/24/18 14:52 Phenytoin (Dilantin) 100 mg PO TID [facility] Stop: 09/26/18 13:59 Sodium Chloride (Nacl Tab) 2 gm PO BID [facility] Stop: 09/24/18 16:59 Last Admin: 07/28/18 08:27 Dose: 2 gm General: alert HEENT: NC/AT, PERRLA Neck: Supple Lungs: CTAB Cardiovascular: RRR, Normal S1, Normal S2, without murmur Abdomen: soft, non-tender, non-distended, positive bowel sound Extremities: excoriation Neurological: alert Internal Medicine Assmt/Plan - Assessment Assessment: hyponatremia generalized weakness tachycardia dm htn HDL seizure disorder - Plan Plan: continue ivf for hydration monitor electrolytes follow up labs in am continue current plan of care
--- NOTE | 2018-07-28 14:38 | General Progress Note ---
Subjective - Review of Systems Service Date: 07/28/18 Subjective: alert, no nausea Objective - Results Result Diagrams: 07/28/18 05:05 07/28/18 05:05 Recent Labs: Laboratory Last Values WBC 7.7 Th/cmm (4.8-10.8) 07/28/18 05:05 RBC 4.03 Mil/cmm (4.30-5.70) L 07/28/18 05:05 Hgb 11.4 gm/dL (12-16) L 07/28/18 05:05 Hct 33.8 % (41.0-60) L 07/28/18 05:05 MCV 83.9 fl (80-99) 07/28/18 05:05 MCH 28.3 pg (26.0-30.0) 07/28/18 05:05 MCHC Differential 33.7 pg (28.0-36.0) 07/28/18 05:05 RDW 15.5 % (11.5-20.0) 07/28/18 05:05 Plt Count 393 Th/cmm (150-400) 07/28/18 05:05 MPV 7.0 fl 07/28/18 05:05 Neutrophils % 69.2 % (40.0-80.0) 07/28/18 05:05 Lymphocytes % 21.9 % (20.0-50.0) 07/28/18 05:05 Monocytes % 6.6 % (2.0-10.0) 07/28/18 05:05 Eosinophils % 1.9 % (0.0-5.0) 07/28/18 05:05 Basophils % 0.4 % (0.0-2.0) 07/28/18 05:05 Sodium 135 mEq/L (136-145) L D 07/28/18 05:05 Potassium 4.4 mEq/L (3.5-5.1) 07/28/18 05:05 Chloride 106 mEq/L (98-107) 07/28/18 05:05 Carbon Dioxide 22.5 mEq/L (21.0-31.0) 07/28/18 05:05 Anion Gap 10.9 (7.0-16.0) 07/28/18 05:05 BUN 22 mg/dL (7-25) 07/28/18 05:05 Creatinine 1.5 mg/dL (0.7-1.3) H 07/28/18 05:05 Est GFR ( Amer) > 60.0 ml/min (>90) 07/28/18 05:05 Est GFR (Non-Af Amer) 50.9 ml/min 07/28/18 05:05 BUN/Creatinine Ratio 14.7 07/28/18 05:05 Glucose 90 mg/dL (70-105) 07/28/18 05:05 POC Glucose 113 MG/DL (70 - 105) H 07/28/18 11:37 Uric Acid 4.5 mg/dL (4.4-7.6) 07/28/18 05:05 Calcium 9.4 mg/dL (8.6-10.3) 07/28/18 05:05 Phosphorus 3.1 mg/dL (2.5-5.0) 07/26/18 13:43 Magnesium 1.9 mg/dL (1.9-2.7) 07/26/18 13:43 Total Bilirubin 0.5 mg/dL (0.3-1.0) 07/26/18 13:43 AST 20 U/L (13-39) 07/26/18 13:43 ALT 13 U/L (7-52) 07/26/18 13:43 Alkaline Phosphatase 147 U/L (34-104) H 07/26/18 13:43 Ammonia 80 umol/L (16-53) H 07/26/18 13:43 Total Protein 7.1 gm/dL (6.0-8.3) 07/26/18 13:43 Albumin 4.3 gm/dL (4.2-5.5) 07/26/18 13:43 Globulin 2.8 gm/dL 07/26/18 13:43 Albumin/Globulin Ratio 1.5 (1.0-1.8) 07/26/18 13:43 Amylase 71 U/L (29-103) 07/26/18 13:43 Lipase 16 U/L (11-82) 07/26/18 13:43 Urine Source CLEAN C 07/26/18 14:00 Urine Color YELLOW 07/26/18 14:00 Urine Clarity CLEAR (CLEAR) 07/26/18 14:00 Urine pH 7.0 (4.6 - 8.0) 07/26/18 14:00 Ur Specific [place] <= 1.005 (1.005-1.030) 07/26/18 14:00 Urine Protein NEGATIVE mg/dL (NEGATIVE) 07/26/18 14:00 Urine Glucose (UA) NEGATIVE mg/dL (NEGATIVE) 07/26/18 14:00 Urine Ketones NEGATIVE mg/dL (NEGATIVE) 07/26/18 14:00 Urine Blood SMALL (NEGATIVE) H 07/26/18 14:00 Urine Nitrate NEGATIVE (NEGATIVE) 07/26/18 14:00 Urine Bilirubin NEGATIVE (NEGATIVE) 07/26/18 14:00 Urine Urobilinogen 0.2 E.U./dL (0.2 - 1.0) 07/26/18 14:00 Ur Leukocyte Esterase NEGATIVE (NEGATIVE) 07/26/18 14:00 Urine RBC 2-5 /hpf (0-5) H 07/26/18 14:00 Urine WBC 0-2 /hpf (0-5) 07/26/18 14:00 Ur Epithelial Cells FEW /lpf (FEW) 07/26/18 14:00 Urine Bacteria FEW /hpf (NONE SEEN) 07/26/18 14:00 Ur Random Sodium 79 mmol/L 07/27/18 18:30 Urine Opiates Screen NEGATIVE (NEGATIVE) 07/26/18 14:00 Urine Methadone Screen NEGATIVE (NEGATIVE) 07/26/18 14:00 Ur Barbiturates Screen POSITIVE (NEGATIVE) H 07/26/18 14:00 Phenytoin < 2.5 ug/ml (10.0-20.0) L 07/26/18 13:43 Ur Tricyclics Screen NEGATIVE (NEGATIVE) 07/26/18 14:00 Ur Phencyclidine Scrn NEGATIVE (NEGATIVE) 07/26/18 14:00 Amphetamines Screen NEGATIVE (NEGATIVE) 07/26/18 14:00 U Methamphetamines Scrn NEGATIVE (NEGATIVE) 07/26/18 14:00 U Benzodiazepines Scrn NEGATIVE (NEGATIVE) 07/26/18 14:00 U Cocaine Metab Screen NEGATIVE (NEGATIVE) 07/26/18 14:00 U Cannabinoids Screen NEGATIVE (NEGATIVE) 07/26/18 14:00 - Physical Exam Vitals and I&O: Vital Signs Temp 98.3 F 07/28/18 11:41 Pulse 80 07/28/18 11:41 Resp 19 07/28/18 11:41 BP 122/59 07/28/18 11:41 Pulse Ox 99 07/28/18 11:41 Intake & Output 07/27/18 07/28/18 07/28/18 18:59 06:59 18:59 Intake Total 1375 3050 595 Output Total 2310 4085 Balance -935 -1035 595 Weight (lbs) 88.904 kg 88.904 kg Intake: Intake, IV Amount 1000 595 Sodium Chloride 0.9% 1, 1000 595 000 ml @ 100 mls/hr IV . Q10H ON LICENSE OF [facility] Rx#:[id number] Oral 375 3050 Output: Urine 2310 4085 Other: # Bowel Movements 1 1 Weight Source Bedscale Bedscale Active Medications: Current Medications Acetaminophen (Tylenol) 650 mg PO Q4H PRN PRN Reason: Pain Or Fever above 101 Stop: 09/24/18 14:52 Albuterol Sulfate (Albuterol 2.5mg/3ml Neb Ud) 2.5 mg HHN Q2HRT PRN PRN Reason: Shortness of Breath or Wheeze Stop: 09/24/18 14:52 Amlodipine Besylate (Norvasc) 10 mg PO DAILY ON LICENSE OF [facility] Stop: 09/25/18 08:59 Last Admin: 07/28/18 08:27 Dose: 10 mg Atorvastatin Calcium (Lipitor) 10 mg PO HS ON LICENSE OF [facility]; Protocol Stop: 09/24/18 20:59 Last Admin: 07/27/18 20:34 Dose: 10 mg Clozapine (Clozaril) 200 mg PO HS ON LICENSE OF [facility]; Protocol Stop: 09/24/18 20:59 Docusate Sodium (Colace) 250 mg PO BID ON LICENSE OF [facility] Stop: 09/24/18 16:59 Last Admin: 07/28/18 08:25 Dose: 250 mg Epoetin Pankaj (Epogen) 10,000 units SUBQ QTHUR ON LICENSE OF [facility] Stop: 09/24/18 14:59 Last Admin: 07/26/18 18:34 Dose: Not Given Ferrous Sulfate (Iron) 325 mg PO DAILY ON [facility] OF [facility] Stop: 09/25/18 08:59 Last Admin: 07/28/18 08:27 Dose: 325 mg Fludrocortisone Acetate (Florinef) 0.1 mg PO DAILY ON [facility] OF [facility] Stop: 09/25/18 14:44 Last Admin: 07/28/18 08:25 Dose: 0.1 mg Gemfibrozil (Lopid) 600 mg PO BID ON [facility] OF [facility] Stop: 09/24/18 16:59 Last Admin: 07/28/18 08:27 Dose: 600 mg Guaifenesin (Robitussin) 200 mg PO Q4HR PRN PRN Reason: Cough or Congestion Stop: 09/24/18 14:52 Heparin Sodium (Porcine) (Heparin) 5,000 units SUBQ Q12HR ON LICENSE OF [facility] Stop: 09/24/18 20:59 Last Admin: 07/28/18 08:29 Dose: 5,000 units Hydralazine HCl (Apresoline) 25 mg PO TID ON LICENSE OF [facility] Stop: 09/24/18 20:59 Last Admin: 07/28/18 08:26 Dose: 25 mg Sodium Chloride (Nacl 0.9%) 1,000 mls @ 80 mls/hr IV .[id number] ON LICENSE OF [facility] Stop: 09/26/18 12:44 Insulin Aspart (Novolog) 0 units SUBQ ACHS ON LICENSE OF [facility]; Protocol Stop: 09/24/18 16:29 Last Admin: 07/28/18 11:41 Dose: Not Given Ipratropium [place] (Atrovent Neb 0.5mg/2.5ml) 0.5 mg IH Q2HRT PRN PRN Reason: Shortness of Breath or Wheeze Stop: 09/24/18 14:52 Levetiracetam (Keppra) 500 mg PO BID ON LICENSE OF [facility] Stop: 09/24/18 16:59 Last Admin: 07/28/18 08:26 Dose: 500 mg Magnesium Hydroxide (Milk Of Magnesia) 30 ml PO HS PRN PRN Reason: Constipation Stop: 09/24/18 14:47 Metoprolol Tartrate (Lopressor) 25 mg PO BID ON LICENSE OF [facility] Stop: 09/24/18 16:59 Last Admin: 07/28/18 08:27 Dose: 25 mg Miscellaneous (Clozapine [Versacloz]) 50 mg PO BID ON LICENSE OF [facility] Stop: 09/24/18 16:59 Last Admin: 07/26/18 17:57 Dose: Not Given Ondansetron HCl (Zofran) 4 mg IV Q8H PRN PRN Reason: Nausea / Vomiting Stop: 09/24/18 14:52 Phenytoin (Dilantin) 100 mg PO TID ON LICENSE OF [facility] Stop: 09/26/18 13:59 Sodium Chloride (Nacl Tab) 2 gm PO BID ON LICENSE OF [facility] Stop: 09/24/18 16:59 Last Admin: 07/28/18 08:27 Dose: 2 gm General: Alert, No acute distress HEENT: Atraumatic, PERRLA, Mucous membr. moist/pink Neck: Supple, +2 carotid pulse wo bruit Cardiovascular: Regular rate, Normal S1, Normal S2 Lungs: Clear to auscultation Abdomen: Bowel sounds, Soft Extremities: no Edema Neurological: Sensation intact Skin: no Rash Psych/Mental Status: Mood NL Assessment/Plan - Assessment Assessment: Chronic hyponatremia Psycho Polydipsia Nausea med induced BPH Anemia of CD T2DM Dyslipidemia Ess Htn Paranoid Schizo RONNA - Plan Plan: Lab - Result Diagrams 07/28/18 05:05 07/28/18 05:05 Current Medications Acetaminophen (Tylenol) 650 mg PO Q4H PRN PRN Reason: Pain Or Fever above 101 Stop: 09/24/18 14:52 Albuterol Sulfate (Albuterol 2.5mg/3ml Neb Ud) 2.5 mg HHN Q2HRT PRN PRN Reason: Shortness of Breath or Wheeze Stop: 09/24/18 14:52 Amlodipine Besylate (Norvasc) 10 mg PO DAILY ON [facility] OF [facility] Stop: 09/25/18 08:59 Last Admin: 07/28/18 08:27 Dose: 10 mg Atorvastatin Calcium (Lipitor) 10 mg PO HS ON LICENSE OF [facility]; Protocol Stop: 09/24/18 20:59 Last Admin: 07/27/18 20:34 Dose: 10 mg Clozapine (Clozaril) 200 mg PO HS ON [facility] OF [facility]; Protocol Stop: 09/24/18 20:59 Docusate Sodium (Colace) 250 mg PO BID ON [facility] OF [facility] Stop: 09/24/18 16:59 Last Admin: 07/28/18 08:25 Dose: 250 mg Epoetin Pankaj (Epogen) 10,000 units SUBQ QTHUR ON [facility] OF [facility] Stop: 09/24/18 14:59 Last Admin: 07/26/18 18:34 Dose: Not Given Ferrous Sulfate (Iron) 325 mg PO DAILY ON [facility] OF [facility] Stop: 09/25/18 08:59 Last Admin: 07/28/18 08:27 Dose: 325 mg Fludrocortisone Acetate (Florinef) 0.1 mg PO DAILY ON [facility] OF [facility] Stop: 09/25/18 14:44 Last Admin: 07/28/18 08:25 Dose: 0.1 mg Gemfibrozil (Lopid) 600 mg PO BID ON [facility] OF [facility] Stop: 09/24/18 16:59 Last Admin: 07/28/18 08:27 Dose: 600 mg Guaifenesin (Robitussin) 200 mg PO Q4HR PRN PRN Reason: Cough or Congestion Stop: 09/24/18 14:52 Heparin Sodium (Porcine) (Heparin) 5,000 units SUBQ Q12HR ON [facility] OF [facility] Stop: 09/24/18 20:59 Last Admin: 07/28/18 08:29 Dose: 5,000 units Hydralazine HCl (Apresoline) 25 mg PO TID ON LICENSE OF [facility] Stop: 09/24/18 20:59 Last Admin: 07/28/18 08:26 Dose: 25 mg Sodium Chloride (Nacl 0.9%) 1,000 mls @ 80 mls/hr IV .[id number] ON [facility] OF [facility] Stop: 09/26/18 12:44 Insulin Aspart (Novolog) 0 units SUBQ ACHS ON LICENSE OF [facility]; Protocol Stop: 09/24/18 16:29 Last Admin: 07/28/18 11:41 Dose: Not Given Ipratropium [place] (Atrovent Neb 0.5mg/2.5ml) 0.5 mg IH Q2HRT PRN PRN Reason: Shortness of Breath or Wheeze Stop: 09/24/18 14:52 Levetiracetam (Keppra) 500 mg PO BID ON [facility] OF [facility] Stop: 09/24/18 16:59 Last Admin: 07/28/18 08:26 Dose: 500 mg Magnesium Hydroxide (Milk Of Magnesia) 30 ml PO HS PRN PRN Reason: Constipation Stop: 09/24/18 14:47 Metoprolol Tartrate (Lopressor) 25 mg PO BID ON [facility] OF [facility] Stop: 09/24/18 16:59 Last Admin: 07/28/18 08:27 Dose: 25 mg Miscellaneous (Clozapine [Versacloz]) 50 mg PO BID ON [facility] OF [facility] Stop: 09/24/18 16:59 Last Admin: 07/26/18 17:57 Dose: Not Given Ondansetron HCl (Zofran) 4 mg IV Q8H PRN PRN Reason: Nausea / Vomiting Stop: 09/24/18 14:52 Phenytoin (Dilantin) 100 mg PO TID [facility] Stop: 09/26/18 13:59 Sodium Chloride (Nacl Tab) 2 gm PO BID [facility] Stop: 09/24/18 16:59 Last Admin: 07/28/18 08:27 Dose: 2 gm Lab - Result Diagrams 07/28/18 05:05 07/28/18 05:05 Na up to 135 on NS started on Florinef on NaCl 2 tabs bid Cr. up to 1.5? f/u electrolytes
[2018-07-28] MEDS: Atorvastatin Calcium 10 MG TAB PO SCH (20:37)
--- NOTE | 2018-07-29 00:40 | Progress Notes ---
DATE: 07/28/2018 SUBJECTIVE: Case was discussed with staff of the patient, reviewed records. The patient continues to be internally preoccupied. Continues to be unable to give reasonable information. The patient continues to be a poor historian. He is on Clozaril. The patient apparently is with a history of prior hyponatremia. The patient has been vomiting. He admits to drinking a lot of water. He is on sodium chloride tablets. The patient continues to have poor insight, unable to make safe plan for self-care or participate in a meaningful conversation, unpredictable and impulsive, needing redirection. He is on Clozaril and no side effects with the medications, no sedation, no nausea and we will continue outpatient group therapy, milieu therapy, adjust medication as needed. It seemed like they have not started the Clozaril yet. I do not see that it seems to be still pending. He need to go back to a smaller dose and we will continue the patient in group therapy, milieu therapy, and adjust medications as needed. JOB# [id number]
[2018-07-29 06:14] LABS: % BASOPHILS 0.5 % (0.0-2.0); % EOSINOPHILS 4.3 % (0.0-5.0); % LYMPHOCYTES 34.8 % (20.0-50.0); % MONOCYTES 7.8 % (2.0-10.0); % NEUTROPHILS 52.6 % (40.0-80.0); EOSINOPHILE ABSOLUTE 0.2 Th/cmm (0.1-0.4); HEMATOCRIT 32.6 % (41.0-60); HEMOGLOBIN 10.9 gm/dL (12-16); LYMPHOCYTE ABSOLUTE 1.9 Th/cmm (1.5-3.0); MEAN CELL VOLUME 84.9 fl (80-99); MEAN CORPUSCULAR HEMOGLOBIN 28.3 pg (26.0-30.0); MEAN CORPUSCULAR HGB CONC 33.3 pg (28.0-36.0); MEAN PLATELET VOLUME 6.9 fl; MONOCYTE ABSOLUTE 0.4 Th/cmm (0.3-1.0); NEUTROPHILE ABSOLUTE 2.9 Th/cmm (1.8-8.0); PLATELET COUNT 388 Th/cmm (150-400); RED BLOOD COUNT 3.84 Mil/cmm (4.30-5.70); RED CELL DISTRIBUTION WIDTH 16.1 % (11.5-20.0); WHITE BLOOD COUNT 5.4 Th/cmm (4.8-10.8)
[2018-07-29 06:29] LABS: ANION GAP 12.3 (7.0-16.0); BUN - UREA NITROGEN 21 mg/dL (7-25); CALCIUM SERUM 9.3 mg/dL (8.6-10.3); CARBON DIOXIDE 21.5 mEq/L (21.0-31.0); CHLORIDE 105 mEq/L (98-107); CREATININE - SERUM 1.4 mg/dL (0.7-1.3); GFR AFRICAN-AMERICAN > 60.0 ml/min (>90); GFR NON AFRICAN-AMERICAN 55.1 ml/min; GLUCOSE 84 mg/dL (70-105); POTASSIUM SERUM 4.8 mEq/L (3.5-5.1); SODIUM SERUM 134 mEq/L (136-145)
[2018-07-29] MEDS: INSULIN ASPART, RECOMBINANT 100 UNITS/ML SUBQ SCH ×2 (06:32→12:06)
[2018-07-29] MEDS: Ferrous Sulfate 325 MG TAB PO SCH (08:35)
[2018-07-29] MEDS: Sodium Chloride 0.9% 1,000 ML IV SCH (08:36)
--- NOTE | 2018-07-29 13:02 | General Progress Note ---
Subjective - Review of Systems Service Date: 07/29/18 Subjective: alert, no nausea, ambulating Objective - Results Result Diagrams: 07/29/18 05:30 07/29/18 05:30 Recent Labs: Laboratory Last Values WBC 5.4 Th/cmm (4.8-10.8) 07/29/18 05:30 RBC 3.84 Mil/cmm (4.30-5.70) L 07/29/18 05:30 Hgb 10.9 gm/dL (12-16) L 07/29/18 05:30 Hct 32.6 % (41.0-60) L 07/29/18 05:30 MCV 84.9 fl (80-99) 07/29/18 05:30 MCH 28.3 pg (26.0-30.0) 07/29/18 05:30 MCHC Differential 33.3 pg (28.0-36.0) 07/29/18 05:30 RDW 16.1 % (11.5-20.0) 07/29/18 05:30 Plt Count 388 Th/cmm (150-400) 07/29/18 05:30 MPV 6.9 fl 07/29/18 05:30 Neutrophils % 52.6 % (40.0-80.0) 07/29/18 05:30 Lymphocytes % 34.8 % (20.0-50.0) 07/29/18 05:30 Monocytes % 7.8 % (2.0-10.0) 07/29/18 05:30 Eosinophils % 4.3 % (0.0-5.0) 07/29/18 05:30 Basophils % 0.5 % (0.0-2.0) 07/29/18 05:30 Sodium 134 mEq/L (136-145) L 07/29/18 05:30 Potassium 4.8 mEq/L (3.5-5.1) 07/29/18 05:30 Chloride 105 mEq/L (98-107) 07/29/18 05:30 Carbon Dioxide 21.5 mEq/L (21.0-31.0) 07/29/18 05:30 Anion Gap 12.3 (7.0-16.0) 07/29/18 05:30 BUN 21 mg/dL (7-25) 07/29/18 05:30 Creatinine 1.4 mg/dL (0.7-1.3) H 07/29/18 05:30 Est GFR ( Amer) > 60.0 ml/min (>90) 07/29/18 05:30 Est GFR (Non-Af Amer) 55.1 ml/min 07/29/18 05:30 BUN/Creatinine Ratio 15.0 07/29/18 05:30 Glucose 84 mg/dL (70-105) 07/29/18 05:30 POC Glucose 117 MG/DL (70 - 105) H 07/29/18 11:59 Uric Acid 4.5 mg/dL (4.4-7.6) 07/28/18 05:05 Calcium 9.3 mg/dL (8.6-10.3) 07/29/18 05:30 Phosphorus 3.1 mg/dL (2.5-5.0) 07/26/18 13:43 Magnesium 1.9 mg/dL (1.9-2.7) 07/26/18 13:43 Total Bilirubin 0.5 mg/dL (0.3-1.0) 07/26/18 13:43 AST 20 U/L (13-39) 07/26/18 13:43 ALT 13 U/L (7-52) 07/26/18 13:43 Alkaline Phosphatase 147 U/L (34-104) H 07/26/18 13:43 Ammonia 80 umol/L (16-53) H 07/26/18 13:43 B-Natriuretic Peptide 212.0 pg/mL (5.0-100.0) H 07/29/18 05:30 Total Protein 7.1 gm/dL (6.0-8.3) 07/26/18 13:43 Albumin 4.3 gm/dL (4.2-5.5) 07/26/18 13:43 Globulin 2.8 gm/dL 07/26/18 13:43 Albumin/Globulin Ratio 1.5 (1.0-1.8) 07/26/18 13:43 Amylase 71 U/L (29-103) 07/26/18 13:43 Lipase 16 U/L (11-82) 07/26/18 13:43 Urine Source CLEAN C 07/26/18 14:00 Urine Color YELLOW 07/26/18 14:00 Urine Clarity CLEAR (CLEAR) 07/26/18 14:00 Urine pH 7.0 (4.6 - 8.0) 07/26/18 14:00 Ur Specific [place] <= 1.005 (1.005-1.030) 07/26/18 14:00 Urine Protein NEGATIVE mg/dL (NEGATIVE) 07/26/18 14:00 Urine Glucose (UA) NEGATIVE mg/dL (NEGATIVE) 07/26/18 14:00 Urine Ketones NEGATIVE mg/dL (NEGATIVE) 07/26/18 14:00 Urine Blood SMALL (NEGATIVE) H 07/26/18 14:00 Urine Nitrate NEGATIVE (NEGATIVE) 07/26/18 14:00 Urine Bilirubin NEGATIVE (NEGATIVE) 07/26/18 14:00 Urine Urobilinogen 0.2 E.U./dL (0.2 - 1.0) 07/26/18 14:00 Ur Leukocyte Esterase NEGATIVE (NEGATIVE) 07/26/18 14:00 Urine RBC 2-5 /hpf (0-5) H 07/26/18 14:00 Urine WBC 0-2 /hpf (0-5) 07/26/18 14:00 Ur Epithelial Cells FEW /lpf (FEW) 07/26/18 14:00 Urine Bacteria FEW /hpf (NONE SEEN) 07/26/18 14:00 Ur Random Sodium 79 mmol/L 07/27/18 18:30 Urine Opiates Screen NEGATIVE (NEGATIVE) 07/26/18 14:00 Urine Methadone Screen NEGATIVE (NEGATIVE) 07/26/18 14:00 Ur Barbiturates Screen POSITIVE (NEGATIVE) H 07/26/18 14:00 Phenytoin < 2.5 ug/ml (10.0-20.0) L 07/26/18 13:43 Ur Tricyclics Screen NEGATIVE (NEGATIVE) 07/26/18 14:00 Levetiracetam 10.2 ug/mL (10.0-40.0) 07/26/18 13:43 Ur Phencyclidine Scrn NEGATIVE (NEGATIVE) 07/26/18 14:00 Amphetamines Screen NEGATIVE (NEGATIVE) 07/26/18 14:00 U Methamphetamines Scrn NEGATIVE (NEGATIVE) 07/26/18 14:00 U Benzodiazepines Scrn NEGATIVE (NEGATIVE) 07/26/18 14:00 U Cocaine Metab Screen NEGATIVE (NEGATIVE) 07/26/18 14:00 U Cannabinoids Screen NEGATIVE (NEGATIVE) 07/26/18 14:00 - Physical Exam Vitals and I&O: Vital Signs Temp 98.1 F 07/29/18 11:00 Pulse 74 07/29/18 11:00 Resp 18 07/29/18 11:00 BP 137/76 07/29/18 11:00 Pulse Ox 100 07/29/18 11:00 Intake & Output 07/28/18 07/29/18 07/29/18 18:59 06:59 18:59 Intake Total 745 1000 Output Total 3100 2100 Balance -2355 -2100 1000 Weight (lbs) 90.991 kg 90.174 kg Intake: Intake, IV Amount 595 1000 Sodium Chloride 0.9% 1, 595 000 ml @ 100 mls/hr IV . Q10H [facility] Rx#:[id number] Sodium Chloride 0.9% 1, 1000 000 ml @ 80 mls/hr IV . [id number] [facility] Rx#:[id number] Oral 150 Output: Urine 3100 2100 Other: # Voids 3 # Bowel Movements 0 Weight Source Bedscale Bedscale Active Medications: Current Medications Acetaminophen (Tylenol) 650 mg PO Q4H PRN PRN Reason: Pain Or Fever above 101 Stop: 09/24/18 14:52 Albuterol Sulfate (Albuterol 2.5mg/3ml Neb Ud) 2.5 mg HHN Q2HRT PRN PRN Reason: Shortness of Breath or Wheeze Stop: 09/24/18 14:52 Amlodipine Besylate (Norvasc) 10 mg PO DAILY [facility] Stop: 09/25/18 08:59 Last Admin: 07/29/18 08:35 Dose: 10 mg Atorvastatin Calcium (Lipitor) 10 mg PO HS [facility]; Protocol Stop: 09/24/18 20:59 Last Admin: 07/28/18 20:37 Dose: 10 mg Clozapine (Clozaril) 200 mg PO HS [facility]; Protocol Stop: 09/24/18 20:59 Docusate Sodium (Colace) 250 mg PO BID [facility] Stop: 09/24/18 16:59 Last Admin: 07/29/18 08:35 Dose: 250 mg Epoetin Pankaj (Epogen) 10,000 units SUBQ QTHUR [facility] Stop: 09/24/18 14:59 Last Admin: 07/26/18 18:34 Dose: Not Given Ferrous Sulfate (Iron) 325 mg PO DAILY [facility] Stop: 09/25/18 08:59 Last Admin: 07/29/18 08:35 Dose: 325 mg Fludrocortisone Acetate (Florinef) 0.1 mg PO DAILY [facility] Stop: 09/25/18 14:44 Last Admin: 07/29/18 08:35 Dose: 0.1 mg Gemfibrozil (Lopid) 600 mg PO BID [facility] Stop: 09/24/18 16:59 Last Admin: 07/29/18 08:34 Dose: 600 mg Guaifenesin (Robitussin) 200 mg PO Q4HR PRN PRN Reason: Cough or Congestion Stop: 09/24/18 14:52 Heparin Sodium (Porcine) (Heparin) 5,000 units SUBQ Q12HR [facility] Stop: 09/24/18 20:59 Last Admin: 07/29/18 08:35 Dose: 5,000 units Hydralazine HCl (Apresoline) 25 mg PO TID [facility] Stop: 09/24/18 20:59 Last Admin: 07/29/18 08:34 Dose: 25 mg Sodium Chloride (Nacl 0.9%) 1,000 mls @ 80 mls/hr IV .[id number] [facility] Stop: 09/26/18 12:44 Last Admin: 07/29/18 08:36 Dose: 80 mls/hr Insulin Aspart (Novolog) 0 units SUBQ ACHS [facility]; Protocol Stop: 09/24/18 16:29 Last Admin: 07/29/18 12:06 Dose: Not Given Ipratropium [place] (Atrovent Neb 0.5mg/2.5ml) 0.5 mg IH Q2HRT PRN PRN Reason: Shortness of Breath or Wheeze Stop: 09/24/18 14:52 Levetiracetam (Keppra) 500 mg PO BID [facility] Stop: 09/24/18 16:59 Last Admin: 07/29/18 08:35 Dose: 500 mg Magnesium Hydroxide (Milk Of Magnesia) 30 ml PO HS PRN PRN Reason: Constipation Stop: 09/24/18 14:47 Metoprolol Tartrate (Lopressor) 25 mg PO BID [facility] Stop: 09/24/18 16:59 Last Admin: 07/29/18 08:34 Dose: 25 mg Miscellaneous (Clozapine [Versacloz]) 50 mg PO BID [facility] Stop: 09/24/18 16:59 Last Admin: 07/26/18 17:57 Dose: Not Given Ondansetron HCl (Zofran) 4 mg IV Q8H PRN PRN Reason: Nausea / Vomiting Stop: 09/24/18 14:52 Phenytoin (Dilantin) 100 mg PO TID [facility] Stop: 09/26/18 13:59 Last Admin: 07/29/18 08:35 Dose: 100 mg Sodium Chloride (Nacl Tab) 2 gm PO BID [facility] Stop: 09/24/18 16:59 Last Admin: 07/29/18 08:35 Dose: 2 gm General: Alert, No acute distress HEENT: Atraumatic, PERRLA, Mucous membr. moist/pink Neck: Supple, +2 carotid pulse wo bruit Cardiovascular: Regular rate, Normal S1, Normal S2 Lungs: Clear to auscultation Abdomen: Bowel sounds, Soft Extremities: no Edema Neurological: Sensation intact Skin: no Rash Psych/Mental Status: Mood NL Assessment/Plan - Assessment Assessment: Chronic hyponatremia Psycho Polydipsia Nausea med induced BPH Anemia of CD T2DM Dyslipidemia Ess Htn Paranoid Schizo RONNA - Plan Plan: Lab - Result Diagrams 07/28/18 05:05 07/28/18 05:05 Current Medications Acetaminophen (Tylenol) 650 mg PO Q4H PRN PRN Reason: Pain Or Fever above 101 Stop: 09/24/18 14:52 Albuterol Sulfate (Albuterol 2.5mg/3ml Neb Ud) 2.5 mg HHN Q2HRT PRN PRN Reason: Shortness of Breath or Wheeze Stop: 09/24/18 14:52 Amlodipine Besylate (Norvasc) 10 mg PO DAILY [facility] Stop: 09/25/18 08:59 Last Admin: 07/28/18 08:27 Dose: 10 mg Atorvastatin Calcium (Lipitor) 10 mg PO HS [facility]; Protocol Stop: 09/24/18 20:59 Last Admin: 07/27/18 20:34 Dose: 10 mg Clozapine (Clozaril) 200 mg PO HS [facility]; Protocol Stop: 09/24/18 20:59 Docusate Sodium (Colace) 250 mg PO BID [facility] Stop: 09/24/18 16:59 Last Admin: 07/28/18 08:25 Dose: 250 mg Epoetin Pankaj (Epogen) 10,000 units SUBQ QTHUR [facility] Stop: 09/24/18 14:59 Last Admin: 07/26/18 18:34 Dose: Not Given Ferrous Sulfate (Iron) 325 mg PO DAILY [facility] Stop: 09/25/18 08:59 Last Admin: 07/28/18 08:27 Dose: 325 mg Fludrocortisone Acetate (Florinef) 0.1 mg PO DAILY [facility] Stop: 09/25/18 14:44 Last Admin: 07/28/18 08:25 Dose: 0.1 mg Gemfibrozil (Lopid) 600 mg PO BID [facility] Stop: 09/24/18 16:59 Last Admin: 07/28/18 08:27 Dose: 600 mg Guaifenesin (Robitussin) 200 mg PO Q4HR PRN PRN Reason: Cough or Congestion Stop: 09/24/18 14:52 Heparin Sodium (Porcine) (Heparin) 5,000 units SUBQ Q12HR [facility] Stop: 09/24/18 20:59 Last Admin: 07/28/18 08:29 Dose: 5,000 units Hydralazine HCl (Apresoline) 25 mg PO TID [facility] Stop: 09/24/18 20:59 Last Admin: 07/28/18 08:26 Dose: 25 mg Sodium Chloride (Nacl 0.9%) 1,000 mls @ 80 mls/hr IV .[id number] [facility] Stop: 09/26/18 12:44 Insulin Aspart (Novolog) 0 units SUBQ ACHS [facility]; Protocol Stop: 09/24/18 16:29 Last Admin: 07/28/18 11:41 Dose: Not Given Ipratropium [place] (Atrovent Neb 0.5mg/2.5ml) 0.5 mg IH Q2HRT PRN PRN Reason: Shortness of Breath or Wheeze Stop: 09/24/18 14:52 Levetiracetam (Keppra) 500 mg PO BID [facility] Stop: 09/24/18 16:59 Last Admin: 07/28/18 08:26 Dose: 500 mg Magnesium Hydroxide (Milk Of Magnesia) 30 ml PO HS PRN PRN Reason: Constipation Stop: 09/24/18 14:47 Metoprolol Tartrate (Lopressor) 25 mg PO BID [facility] Stop: 09/24/18 16:59 Last Admin: 07/28/18 08:27 Dose: 25 mg Miscellaneous (Clozapine [Versacloz]) 50 mg PO BID [facility] Stop: 09/24/18 16:59 Last Admin: 07/26/18 17:57 Dose: Not Given Ondansetron HCl (Zofran) 4 mg IV Q8H PRN PRN Reason: Nausea / Vomiting Stop: 09/24/18 14:52 Phenytoin (Dilantin) 100 mg PO TID [facility] Stop: 09/26/18 13:59 Sodium Chloride (Nacl Tab) 2 gm PO BID [facility] Stop: 09/24/18 16:59 Last Admin: 07/28/18 08:27 Dose: 2 gm Lab - Result Diagrams 07/29/18 05:30 07/29/18 05:30 Na stable @ 134 on NS started on Florinef on NaCl 2 tabs bid Cr. improved to 1.4 f/u electrolytes
--- NOTE | 2018-07-29 14:37 | Internal Medicine Prog Note ---
Internal Medicine Subjective - Subjective Service Date: 07/29/18 (dc summary [id number]) Patient is:: awake, verbal, ambulating Per staff patient has:: tolerating meds Internal Medicine Objective - Results Result Diagrams: 07/29/18 05:30 07/29/18 05:30 Recent Labs: Laboratory Last Values WBC 5.4 Th/cmm (4.8-10.8) 07/29/18 05:30 RBC 3.84 Mil/cmm (4.30-5.70) L 07/29/18 05:30 Hgb 10.9 gm/dL (12-16) L 07/29/18 05:30 Hct 32.6 % (41.0-60) L 07/29/18 05:30 MCV 84.9 fl (80-99) 07/29/18 05:30 MCH 28.3 pg (26.0-30.0) 07/29/18 05:30 MCHC Differential 33.3 pg (28.0-36.0) 07/29/18 05:30 RDW 16.1 % (11.5-20.0) 07/29/18 05:30 Plt Count 388 Th/cmm (150-400) 07/29/18 05:30 MPV 6.9 fl 07/29/18 05:30 Neutrophils % 52.6 % (40.0-80.0) 07/29/18 05:30 Lymphocytes % 34.8 % (20.0-50.0) 07/29/18 05:30 Monocytes % 7.8 % (2.0-10.0) 07/29/18 05:30 Eosinophils % 4.3 % (0.0-5.0) 07/29/18 05:30 Basophils % 0.5 % (0.0-2.0) 07/29/18 05:30 Sodium 134 mEq/L (136-145) L 07/29/18 05:30 Potassium 4.8 mEq/L (3.5-5.1) 07/29/18 05:30 Chloride 105 mEq/L (98-107) 07/29/18 05:30 Carbon Dioxide 21.5 mEq/L (21.0-31.0) 07/29/18 05:30 Anion Gap 12.3 (7.0-16.0) 07/29/18 05:30 BUN 21 mg/dL (7-25) 07/29/18 05:30 Creatinine 1.4 mg/dL (0.7-1.3) H 07/29/18 05:30 Est GFR ( Amer) > 60.0 ml/min (>90) 07/29/18 05:30 Est GFR (Non-Af Amer) 55.1 ml/min 07/29/18 05:30 BUN/Creatinine Ratio 15.0 07/29/18 05:30 Glucose 84 mg/dL (70-105) 07/29/18 05:30 POC Glucose 117 MG/DL (70 - 105) H 07/29/18 11:59 Uric Acid 4.5 mg/dL (4.4-7.6) 07/28/18 05:05 Calcium 9.3 mg/dL (8.6-10.3) 07/29/18 05:30 Phosphorus 3.1 mg/dL (2.5-5.0) 07/26/18 13:43 Magnesium 1.9 mg/dL (1.9-2.7) 07/26/18 13:43 Total Bilirubin 0.5 mg/dL (0.3-1.0) 07/26/18 13:43 AST 20 U/L (13-39) 07/26/18 13:43 ALT 13 U/L (7-52) 07/26/18 13:43 Alkaline Phosphatase 147 U/L (34-104) H 07/26/18 13:43 Ammonia 80 umol/L (16-53) H 07/26/18 13:43 B-Natriuretic Peptide 212.0 pg/mL (5.0-100.0) H 07/29/18 05:30 Total Protein 7.1 gm/dL (6.0-8.3) 07/26/18 13:43 Albumin 4.3 gm/dL (4.2-5.5) 07/26/18 13:43 Globulin 2.8 gm/dL 07/26/18 13:43 Albumin/Globulin Ratio 1.5 (1.0-1.8) 07/26/18 13:43 Amylase 71 U/L (29-103) 07/26/18 13:43 Lipase 16 U/L (11-82) 07/26/18 13:43 Urine Source CLEAN C 07/26/18 14:00 Urine Color YELLOW 07/26/18 14:00 Urine Clarity CLEAR (CLEAR) 07/26/18 14:00 Urine pH 7.0 (4.6 - 8.0) 07/26/18 14:00 Ur Specific [place] <= 1.005 (1.005-1.030) 07/26/18 14:00 Urine Protein NEGATIVE mg/dL (NEGATIVE) 07/26/18 14:00 Urine Glucose (UA) NEGATIVE mg/dL (NEGATIVE) 07/26/18 14:00 Urine Ketones NEGATIVE mg/dL (NEGATIVE) 07/26/18 14:00 Urine Blood SMALL (NEGATIVE) H 07/26/18 14:00 Urine Nitrate NEGATIVE (NEGATIVE) 07/26/18 14:00 Urine Bilirubin NEGATIVE (NEGATIVE) 07/26/18 14:00 Urine Urobilinogen 0.2 E.U./dL (0.2 - 1.0) 07/26/18 14:00 Ur Leukocyte Esterase NEGATIVE (NEGATIVE) 07/26/18 14:00 Urine RBC 2-5 /hpf (0-5) H 07/26/18 14:00 Urine WBC 0-2 /hpf (0-5) 07/26/18 14:00 Ur Epithelial Cells FEW /lpf (FEW) 07/26/18 14:00 Urine Bacteria FEW /hpf (NONE SEEN) 07/26/18 14:00 Ur Random Sodium 79 mmol/L 07/27/18 18:30 Urine Opiates Screen NEGATIVE (NEGATIVE) 07/26/18 14:00 Urine Methadone Screen NEGATIVE (NEGATIVE) 07/26/18 14:00 Ur Barbiturates Screen POSITIVE (NEGATIVE) H 07/26/18 14:00 Phenytoin < 2.5 ug/ml (10.0-20.0) L 07/26/18 13:43 Ur Tricyclics Screen NEGATIVE (NEGATIVE) 07/26/18 14:00 Levetiracetam 10.2 ug/mL (10.0-40.0) 07/26/18 13:43 Ur Phencyclidine Scrn NEGATIVE (NEGATIVE) 07/26/18 14:00 Amphetamines Screen NEGATIVE (NEGATIVE) 07/26/18 14:00 U Methamphetamines Scrn NEGATIVE (NEGATIVE) 07/26/18 14:00 U Benzodiazepines Scrn NEGATIVE (NEGATIVE) 07/26/18 14:00 U Cocaine Metab Screen NEGATIVE (NEGATIVE) 07/26/18 14:00 U Cannabinoids Screen NEGATIVE (NEGATIVE) 07/26/18 14:00 - Physical Exam Vitals and I&O: Vital Signs Temp 98.1 F 07/29/18 11:00 Pulse 74 07/29/18 13:17 Resp 18 07/29/18 11:00 BP 137/76 07/29/18 13:17 Pulse Ox 100 07/29/18 11:00 Intake & Output 07/28/18 07/29/18 07/29/18 18:59 06:59 18:59 Intake Total 745 1000 Output Total 3100 2100 Balance -2355 -2100 1000 Weight (lbs) 200 lb 9.6 oz 198 lb 12.8 oz Intake: Intake, IV Amount 595 1000 Sodium Chloride 0.9% 1, 595 000 ml @ 100 mls/hr IV . Q10H [facility] Rx#:[id number] Sodium Chloride 0.9% 1, 1000 000 ml @ 80 mls/hr IV . [id number] [facility] Rx#:[id number] Oral 150 Output: Urine 3100 2100 Other: # Voids 3 # Bowel Movements 0 Weight Source Bedscale Bedscale Active Medications: Current Medications Acetaminophen (Tylenol) 650 mg PO Q4H PRN PRN Reason: Pain Or Fever above 101 Stop: 09/24/18 14:52 Albuterol Sulfate (Albuterol 2.5mg/3ml Neb Ud) 2.5 mg HHN Q2HRT PRN PRN Reason: Shortness of Breath or Wheeze Stop: 09/24/18 14:52 Amlodipine Besylate (Norvasc) 10 mg PO DAILY [facility] Stop: 09/25/18 08:59 Last Admin: 07/29/18 08:35 Dose: 10 mg Atorvastatin Calcium (Lipitor) 10 mg PO HS [facility]; Protocol Stop: 09/24/18 20:59 Last Admin: 07/28/18 20:37 Dose: 10 mg Clozapine (Clozaril) 200 mg PO HS [facility]; Protocol Stop: 09/24/18 20:59 Docusate Sodium (Colace) 250 mg PO BID [facility] Stop: 09/24/18 16:59 Last Admin: 07/29/18 08:35 Dose: 250 mg Epoetin Pankaj (Epogen) 10,000 units SUBQ QTHUR [facility] Stop: 09/24/18 14:59 Last Admin: 07/26/18 18:34 Dose: Not Given Ferrous Sulfate (Iron) 325 mg PO DAILY [facility] Stop: 09/25/18 08:59 Last Admin: 07/29/18 08:35 Dose: 325 mg Fludrocortisone Acetate (Florinef) 0.1 mg PO DAILY [facility] Stop: 09/25/18 14:44 Last Admin: 07/29/18 08:35 Dose: 0.1 mg Gemfibrozil (Lopid) 600 mg PO BID [facility] Stop: 09/24/18 16:59 Last Admin: 07/29/18 08:34 Dose: 600 mg Guaifenesin (Robitussin) 200 mg PO Q4HR PRN PRN Reason: Cough or Congestion Stop: 09/24/18 14:52 Heparin Sodium (Porcine) (Heparin) 5,000 units SUBQ Q12HR [facility] Stop: 09/24/18 20:59 Last Admin: 07/29/18 08:35 Dose: 5,000 units Hydralazine HCl (Apresoline) 25 mg PO TID [facility] Stop: 09/24/18 20:59 Last Admin: 07/29/18 13:17 Dose: 25 mg Sodium Chloride (Nacl 0.9%) 1,000 mls @ 80 mls/hr IV .[id number] [facility] Stop: 09/26/18 12:44 Last Admin: 07/29/18 08:36 Dose: 80 mls/hr Insulin Aspart (Novolog) 0 units SUBQ ACHS [facility]; Protocol Stop: 09/24/18 16:29 Last Admin: 07/29/18 12:06 Dose: Not Given Ipratropium [place] (Atrovent Neb 0.5mg/2.5ml) 0.5 mg IH Q2HRT PRN PRN Reason: Shortness of Breath or Wheeze Stop: 09/24/18 14:52 Levetiracetam (Keppra) 500 mg PO BID [facility] Stop: 09/24/18 16:59 Last Admin: 07/29/18 08:35 Dose: 500 mg Magnesium Hydroxide (Milk Of Magnesia) 30 ml PO HS PRN PRN Reason: Constipation Stop: 09/24/18 14:47 Metoprolol Tartrate (Lopressor) 25 mg PO BID [facility] Stop: 09/24/18 16:59 Last Admin: 07/29/18 08:34 Dose: 25 mg Miscellaneous (Clozapine [Versacloz]) 50 mg PO BID [facility] Stop: 09/24/18 16:59 Last Admin: 07/26/18 17:57 Dose: Not Given Ondansetron HCl (Zofran) 4 mg IV Q8H PRN PRN Reason: Nausea / Vomiting Stop: 09/24/18 14:52 Phenytoin (Dilantin) 100 mg PO TID [facility] Stop: 09/26/18 13:59 Last Admin: 07/29/18 13:17 Dose: 100 mg Sodium Chloride (Nacl Tab) 2 gm PO BID [facility] Stop: 09/24/18 16:59 Last Admin: 07/29/18 08:35 Dose: 2 gm General: alert HEENT: NC/AT, PERRLA Neck: Supple Lungs: CTAB Cardiovascular: RRR, Normal S1, Normal S2, without murmur Abdomen: soft, non-tender, non-distended, positive bowel sound Extremities: excoriation Neurological: alert Internal Medicine Assmt/Plan - Assessment Assessment: hyponatremia generalized weakness tachycardia dm htn HDL seizure disorder - Plan Plan: continue ivf for hydration monitor electrolytes follow up labs in am continue current plan of care
--- NOTE | 2018-07-29 20:39 | Discharge Summary ---
DATE OF DISCHARGE: 07/29/2018 DISCHARGE DIAGNOSES: 1. Hyponatremia, which is improved. 2. Generalized weakness. 3. Tachycardia, which is resolved. 4. Diabetes. 5. Hypertension. 6. Hypercholesterolemia. 7. Seizure disorder. 8. Schizoaffective disorder. HISTORY OF PRESENT ILLNESS: A 58-year-old male with a history of diabetes, hypertension, high cholesterol, psych disorder, anemia, seizures, admitted from nursing facility secondary to not feeling well with nausea and vomiting. The patient was evaluated in the ER by Dr. King and noted to have sodium of 117 and baseline was 134. The patient admitted for further management. PHYSICAL EXAMINATION: GENERAL: Elderly male, awake, alert, in no apparent distress. VITAL SIGNS: Stable. HEAD: Normocephalic and atraumatic. NECK: Supple. No mass. LUNGS: Clear bilaterally. HEART: Regular rate and rhythm. ABDOMEN: Soft, nontender. HOSPITAL COURSE: During the hospital stay, the patient was admitted to the med-surg unit. The patient was kept on aggressive IV fluids for hydration as well as Nephrology consultation done. The patient has Psychiatry evaluation. The patient's BUN and creatinine were being monitored closely. The patient's BUN and creatinine and sodium have improved. For this reason, the patient is stable for discharge. CONDITION UPON DISCHARGE: Fair. DISPOSITION: correction. JOB# [id number]
--- NOTE | 2018-07-29 22:07 | Progress Notes ---
DATE: 07/29/2018 SUBJECTIVE: Case was discussed with staff of the patient and reviewed records. The patient continues to stay in bed, isolating himself, very poor insight, erratic behavior, unable to make safe plan for his self-care or participate in meaningful conversation. Sleeping well, eating well. No side effects with the medication, no sedation, no nausea. He is on Clozaril. He is paranoid, but he is minimizing his symptoms and notes that he is on Clozaril with no side effects. Thank you very much for allowing me to participate in the care of this most interesting gentleman. JOB# [id number]
== END 2018-07-29 15:45 | DRG 682 ==
LOC: ER 12:39 → TELE 15:08 → MSI 07-28 12:42
PROVIDERS: ADMIT Internal Medicine; ATTEND Internal Medicine
DX: N17.9 Acute kidney failure, unspecified (principal); G93.41 Metabolic encephalopathy; E87.1 Hypo-osmolality and hyponatremia; K72.90 Hepatic failure, unspecified without coma; R00.0 Tachycardia, unspecified; E78.5 Hyperlipidemia, unspecified; N18.9 Chronic kidney disease, unspecified; I12.9 Hypertensive chronic kidney disease with stage 1 through stage 4 chronic kidney disease, or unspecified chronic kidney disease; N40.0 Benign prostatic hyperplasia without lower urinary tract symptoms; D64.9 Anemia, unspecified; G47.00 Insomnia, unspecified; E78.00 Pure hypercholesterolemia, unspecified; G40.909 Epilepsy, unspecified, not intractable, without status epilepticus; F25.9 Schizoaffective disorder, unspecified; R63.1 Polydipsia; D63.1 Anemia in chronic kidney disease; E11.22 Type 2 diabetes mellitus with diabetic chronic kidney disease; Z23 Encounter for immunization
CPT/HCPCS: 36415-UA; 71045-TC; 80048-TC; 80053-TC; 80185-TC; 80299-90; 80307; 81001-TC; 82088-90; 82140-TC; 82150-TC; 82533-90; 82948-90; 83690-TC; 83735-TC; 83880-TC; 83930-90; 84100-TC; 84300-TC; 84550-TC; 85025-TC; 93005; 94760; 96374; J0885; J1644; J1815; J7030; J7042; Z7610

== ENCOUNTER 2019-02-15 19:37 | Inpatient (IN) | payer MEDICARE, MEDICAID ==
--- NOTE | 2019-02-15 20:33 | ED Physician Chart ---
ED Chief Complaint/HPI - Patient Information Date Seen:: 02/15/19 Time Seen:: 19:55 Chief Complaint:: Urinary retention. History of Present Illness:: Pt has h/o urinary retention. Pt had suprapubic catheter placed and was removed recently because it was non-functional. Pt has had urinary retention. Pt denies any significant suprapubic pain or discomfort after he was catheterized earlier today. Allergies:: Allergies Allergy/AdvReac Type Severity Reaction Status Date / Time No Known Allergies Allergy Verified 02/15/19 20:11 Vitals:: see Nurse Note. Historian:: Patient, Medical Records (from transferring facility.) Family MD/PCP:: Dr. Thompson LMP:: N/A Review:: Nurse's Note Reviewed, Transfer documents Reviewed ED Review of Systems - Review of Systems General/Constitutional: No fever, No chills, No weight loss, No weakness, No edema, No loss of appetite Skin: No rash, No bruising Head: No light-headedness Eyes: No loss of vision, No pain, No diplopia ENT: No earache, No nasal drainage, No sore throat Neck: No neck pain, No swelling, No thyromegaly, No mass noted Cardio Vascular: No chest pain, No palpitations Pulmonary: No cough, No wheezing GI: No nausea, No vomiting, No diarrhea, No pain G/U: No dysuria, No frequency, No hematuria Musculoskeletal: No bone or joint pain Psychiatric: Prior psych history Hematopoietic: No bruising, No lymphadenopathy Allergic/Immuno: No urticaria, No angioedema Neurological: No syncope, No focal symptoms, No weakness, No paresthesia ED Past Medical History - Past Medical History Past Medical History: Dyslipidemia, Dementia, Other (BPH, CRI, anemia) Family History: Heart disease Social History: Non Smoker, No Alcohol, No Drug Use, Single, Care Facility Surgical History: other (suprapubic catheter placement.) Psychiatricy History: Schizophrenia Medication: Reviewed Family Medical History - Family Member Mother History Unknown: Yes Ethnicity: Unknown Living Status: Unknown ED Physical Exam - Physical Examination General/Constitutional: Awake, Well-developed, well-nourished (male), No distress, Non-toxic appearing Other Gen/Cons comments:: Breathes comfortably, speaks clearly, and overall cooperative. Head: Atraumatic Eyes: Lids, conjuctiva normal, PERRL, EOMI Skin: Well hydrated, No lymphadenopathy ENMT: External ears, nose nl, Nasal exam nl, Oropharynx nl Neck: Full ROM w/o pain, No nuchal rigidity, No mass Respiratory: Nl effort/Exclusion, Clear to Auscultation, No Wheeze/Rhonchi/Rales Cardio Vascular: RRR, No murmur, gallop, rubs GI: No tenderness/rebounding/guarding, No organomegaly, No hernia, Normal BS's, No mass/bruits, No McBurney tenderness Other GI comments:: Mild suprapubic distension noticed with vague discomfort. : No CVA tenderness Extremities: No tenderness or effusion, No edema Neuro/Psych: Alert/oriented (knows his name and that he is in hospital.), No focal deficits ED Labs/Radiology/EKG Results - Lab Results Results: Laboratory Results - last 24 hr 02/15/19 02/15/19 02/15/19 20:22 21:00 21:00 WBC 7.6 RBC 3.68 L Hgb 10.0 L Hct 30.6 L MCV 83.1 MCH 27.2 MCHC Differential 32.8 RDW 15.9 Plt Count 439 H MPV 6.2 Neutrophils % 59.4 Lymphocytes % 29.7 Monocytes % 8.5 Eosinophils % 1.8 Basophils % 0.6 PT 9.9 INR 0.95 PTT (Actin FS) 27.4 Sodium Potassium Chloride Carbon Dioxide Anion Gap BUN Creatinine Est GFR ( Amer) Est GFR (Non-Af Amer) BUN/Creatinine Ratio Glucose Calcium Total Bilirubin AST ALT Alkaline Phosphatase Total Protein Albumin Globulin Albumin/Globulin Ratio Urine Source RANDOM Urine Color YELLOW Urine Clarity CLEAR Urine pH 5.5 Ur Specific [place] <= 1.005 Urine Protein NEGATIVE Urine Glucose (UA) NEGATIVE Urine Ketones NEGATIVE Urine Blood NEGATIVE Urine Nitrate NEGATIVE Urine Bilirubin NEGATIVE Urine Urobilinogen 0.2 Ur Leukocyte Esterase NEGATIVE Urine RBC NONE SEEN Urine WBC 0-2 Ur Epithelial Cells OCCASIONAL Urine Bacteria FEW Phenytoin Phenobarbital 02/15/19 02/15/19 21:00 21:00 WBC RBC Hgb Hct MCV MCH MCHC Differential RDW Plt Count MPV Neutrophils % Lymphocytes % Monocytes % Eosinophils % Basophils % PT INR PTT (Actin FS) Sodium 128 L Potassium 4.0 Chloride 94 L Carbon Dioxide 23.1 Anion Gap 14.9 BUN 31 H Creatinine 2.2 H Est GFR ( Amer) 39.6 Est GFR (Non-Af Amer) 32.7 BUN/Creatinine Ratio 14.1 Glucose 93 Calcium 9.7 Total Bilirubin 0.3 AST 17 ALT 13 Alkaline Phosphatase 113 H Total Protein 7.5 Albumin 4.5 Globulin 3.0 Albumin/Globulin Ratio 1.5 Urine Source Urine Color Urine Clarity Urine pH Ur Specific [place] Urine Protein Urine Glucose (UA) Urine Ketones Urine Blood Urine Nitrate Urine Bilirubin Urine Urobilinogen Ur Leukocyte Esterase Urine RBC Urine WBC Ur Epithelial Cells Urine Bacteria Phenytoin < 2.5 L Phenobarbital Cancelled ED Septic Shock - . Is Septic Shock (SBP<90, OR Lactate>4 mmol\L) present?: No ED Reassessment (Disposition) - Reassessment Reassessment:: 2244 Pt remains stable. Lab findings have been reviewed with pt. Management plan has been discussed. 2254 Case was discussed with Dr. eMjia with pertinent info reviewed. Pt is to be admitted to [facility] under his care. Reassessment Condition:: Improved - Diagnosis Diagnosis:: Urinary retention. Chronic renal insufficiency. Chronic anemia. Mild hyponatremia. Dementia. - Patient Disposition Admitted to:: Med/Surg Admitting Medical Physician:: Reina Mejia Time:: 22:55 Condition at Disposition:: Stable
[2019-02-15 21:10] LABS: % BASOPHILS 0.6 % (0.0-2.0); % EOSINOPHILS 1.8 % (0.0-5.0); % LYMPHOCYTES 29.7 % (20.0-50.0); % MONOCYTES 8.5 % (2.0-10.0); % NEUTROPHILS 59.4 % (40.0-80.0); EOSINOPHILE ABSOLUTE 0.1 Th/cmm (0.1-0.4); HEMATOCRIT 30.6 % (41.0-60); LYMPHOCYTE ABSOLUTE 2.3 Th/cmm (1.5-3.0); MEAN CELL VOLUME 83.1 fl (80-99); MEAN CORPUSCULAR HEMOGLOBIN 27.2 pg (26.0-30.0); MEAN CORPUSCULAR HGB CONC 32.8 pg (28.0-36.0); MONOCYTE ABSOLUTE 0.6 Th/cmm (0.3-1.0); NEUTROPHILE ABSOLUTE 4.6 Th/cmm (1.8-8.0); PLATELET COUNT 439 Th/cmm (150-400); RED BLOOD COUNT 3.68 Mil/cmm (4.30-5.70); RED CELL DISTRIBUTION WIDTH 15.9 % (11.5-20.0); WHITE BLOOD COUNT 7.6 Th/cmm (4.8-10.8)
[2019-02-15 21:13] LABS: URINE SOURCE RANDOM
[2019-02-15 21:15] LABS: URINE BILIRUBIN NEGATIVE (NEGATIVE); URINE BLOOD NEGATIVE (NEGATIVE); URINE GLUCOSE (UA) NEGATIVE (NEGATIVE); URINE KETONE NEGATIVE (NEGATIVE); URINE LEUKOCYTE ESTERASE NEGATIVE (NEGATIVE); URINE NITRATE NEGATIVE (NEGATIVE); URINE PH 5.5 (4.6 - 8.0); URINE PROTEIN NEGATIVE (NEGATIVE); URINE UROBILINOGEN 0.2 E.U./dL (0.2 - 1.0)
[2019-02-15 21:20] LABS: URINE CLARITY CLEAR (CLEAR); URINE COLOR YELLOW; URINE MICROSCOPIC INDICATED? YES
[2019-02-15 21:21] LABS: URINE RBC NONE SEEN /hpf (0-5)
[2019-02-15 21:22] LABS: URINE BACTERIA FEW /hpf (NONE SEEN); URINE EPITHELIAL CELLS OCCASIONAL /lpf (FEW); URINE WBC 0-2 /hpf (0-5)
[2019-02-15 21:23] LABS: ALB/GLOB RATIO 1.5 (1.0-1.8); ALBUMIN 4.5 gm/dL (4.2-5.5); ANION GAP 14.9 (7.0-16.0); BILIRUBIN,TOTAL 0.3 mg/dL (0.3-1.0); CALCIUM SERUM 9.7 mg/dL (8.6-10.3); CARBON DIOXIDE 23.1 mEq/L (21.0-31.0); CREATININE - SERUM 2.2 mg/dL (0.7-1.3); GFR AFRICAN-AMERICAN 39.6 ml/min (>90); GFR NON AFRICAN-AMERICAN 32.7 ml/min; TOTAL PROTEIN,SERUM 7.5 gm/dL (6.0-8.3)
[2019-02-15 21:28] LABS: INR 0.95 (0.5-1.4)
[2019-02-16 00:42] VITALS: BP 136/74
[2019-02-16] MEDS: D5-0.45NS w/20 mEq KCL 1,000 ML IV SCH ×2 (00:46→20:40)
[2019-02-16 05:20] LABS: % BASOPHILS 0.7 % (0.0-2.0); % EOSINOPHILS 2.3 % (0.0-5.0); % LYMPHOCYTES 29.6 % (20.0-50.0); % MONOCYTES 11.4 % (2.0-10.0); EOSINOPHILE ABSOLUTE 0.1 Th/cmm (0.1-0.4); HEMATOCRIT 29.8 % (41.0-60); HEMOGLOBIN 9.7 gm/dL (12-16); LYMPHOCYTE ABSOLUTE 1.8 Th/cmm (1.5-3.0); MEAN CELL VOLUME 82.8 fl (80-99); MEAN CORPUSCULAR HGB CONC 32.5 pg (28.0-36.0); MONOCYTE ABSOLUTE 0.7 Th/cmm (0.3-1.0); NEUTROPHILE ABSOLUTE 3.6 Th/cmm (1.8-8.0); PLATELET COUNT 421 Th/cmm (150-400); RED CELL DISTRIBUTION WIDTH 15.9 % (11.5-20.0); WHITE BLOOD COUNT 6.2 Th/cmm (4.8-10.8)
[2019-02-16 05:27] LABS: CALCIUM SERUM 9.5 mg/dL (8.6-10.3); CARBON DIOXIDE 22.4 mEq/L (21.0-31.0); CREATININE - SERUM 2.2 mg/dL (0.7-1.3); GFR AFRICAN-AMERICAN 39.6 ml/min (>90); GFR NON AFRICAN-AMERICAN 32.7 ml/min; POTASSIUM SERUM 4.4 mEq/L (3.5-5.1)
[2019-02-16] MEDS ORDERED: Magnesium Hydroxide (MOM) 30 mL UDC PO PRN (21:14)
[2019-02-16] MEDS ORDERED: Epoetin Alfa 20000 Units/mL Vial SUBQ SCH (21:15)
[2019-02-16] MEDS ORDERED: Dextrose 50% 50 mL Abboject IVP PRN (21:20)
[2019-02-16] MEDS ORDERED: GLUCAGON HCl 1 MG KIT IM PRN (21:20)
--- NOTE | 2019-02-16 21:42 | History & Physical ---
ADMIT DATE: CHIEF COMPLAINT: Severe confusion. HISTORY OF PRESENT ILLNESS: The patient is a 58-year-old male with a long history of diabetes mellitus, hypertension, seizure disorder and psychosis, resident at [facility], transferred to the Emergency Room with altered level of consciousness, generalized weakness, confusion, evaluated by the ER physician. Initial workup significant for urinary tract infection, metabolic encephalopathy, started on IV fluid, antibiotic. No fever, no chills, no nausea, no vomiting. The patient is a poor historian. PAST MEDICAL HISTORY: Significant for hypertension, diabetes mellitus, seizure disorder, chronic kidney disease and psychosis. PAST SURGICAL HISTORY: No recent surgery. ALLERGIES: None. MEDICATIONS: Follow admission reconciliation. SOCIAL HISTORY: No smoking, no alcohol, no drug. FAMILY HISTORY: Noncontributory. REVIEW OF SYSTEMS: IMMUNO SYSTEM: No history of chronic immuno disorder. CARDIOVASCULAR SYSTEM: He has history of hypertension. ENDOCRINE SYSTEM: He has history of diabetes mellitus. GASTROINTESTINAL SYSTEM: No upper or lower GI bleed. NEUROLOGICAL: He has seizure disorder. SKELETOMUSCULAR SYSTEM: No muscular dystrophy. HEMATOLOGIC SYSTEM: He has chronic anemia. PHYSICAL EXAMINATION: GENERAL: He is awake, confused. VITAL SIGNS: Temperature is 97.6, heart rate 72, blood pressure 136/79. HEENT: Normocephalic. Pupils reactive to light and accommodation. Sclerae clear. NECK: Supple. Negative for lymphadenopathy, JVD or bruit. CHEST: Air bilaterally normal. No rhonchi or wheezing. HEART: S1, S2 normal. No gallop rhythm. ABDOMEN: Soft, bowel sounds positive. EXTREMITIES: No edema. NEUROLOGIC: He is awake, alert, mildly confused. No focal motor or sensory deficit. LABORATORY DATA: White blood cell is 7.2, hemoglobin 7.9, hematocrit 29.8. Sodium 128, potassium 4, BUN 31, creatinine 2.2. ASSESSMENT: 1. Urinary tract infection. 2. Hyponatremia. 3. Metabolic encephalopathy. 4. Diabetes mellitus. 5. Seizure disorder. 6. Anemia. PLAN: The patient admitted to the hospital under Dr. Mejia's service. Started on IV fluid, antibiotic, resume his home medication and diet. The patient is a full code. Dr. Pradhan, Psychiatry, consulted on the case. JOB# [id number]
[2019-02-17] MEDS: INSULIN LISPRO SLIDING SCALE 100 UNITS/ML UNIT SUBQ SCH ×4 (06:47→20:53)
--- NOTE | 2019-02-17 07:57 | Consultation ---
DATE OF CONSULTATION: 02/17/2019 AGE: 58 SEX: Male. PHYSICIAN: Dr. Mejia. EVENT SALES REPRESENTATIVE: Dr. Pradhan. TYPE OF THE REPORT: Psychiatric consult. REASON FOR THE CONSULT: Confusion. HISTORY OF PRESENT ILLNESS: The patient is a 58-year-old male with history of schizophrenia. The patient was admitted to the hospital because of confusion and Dr. Mejia asked me to evaluate the patient's condition and medications. The patient has history of schizophrenia and the patient has been taking Clozaril and trazodone. Also, has history of seizure disorder and has been taking Dilantin. Chart reviewed and the patient interviewed. The patient is confused, but not agitated. The patient is trying to carry on conversation, but he is incoherent. The patient also is actively responding and talking to self. He also was asking me questions that did not make any sense. He also was rambling and jumping from one topic to another incoherently. He denied any hallucinations, but actively responding. PAST PSYCHIATRIC HISTORY: The patient has history of schizophrenia. PAST MEDICAL HISTORY: The patient has history of a seizure disorder. He also was admitted with generalized weakness and possible metabolic encephalopathy and urinary tract infection. SOCIAL HISTORY: The patient lives in [facility]. Denies alcohol or drug use or smoking cigarettes. He denies legal issues or abuse issues. Also, single, never , and has no children. ALLERGIES: No known allergies. MENTAL STATUS EXAM: The patient appears older than stated age. Disheveled. Irritable mood. Thought processes are rambling and disorganized. The patient denies auditory or visual hallucinations, but actively responding to stimuli and talking to himself. The patient denies any suicidal or homicidal ideations. The patient is alert and oriented to the situation, but not to the place or person or date. Unable to assess his memory because of his disorganized thoughts and inability to follow directions. ASSESSMENT: PRIMARY DIAGNOSIS: Schizophrenic disorder, unspecified. MEDICAL DIAGNOSES: 1. Urinary tract infection. 2. Hypertension. 3. Metabolic encephalopathy. 4. Diabetes mellitus. 5. Seizure disorder. 6. Anemia. TREATMENT PLAN: Monitor patient's behavior and condition closely. We will monitor blood work and will continue Clozaril and adjust the dose depending on blood levels. Also, depending on the white blood count. Also will monitor his behavior closely. Thanks to Dr. Mejia and we will follow up with you. JOB# [id number]
[2019-02-17] MEDS: Ferrous Sulfate 325 MG TAB PO SCH (08:24)
[2019-02-17] MEDS: Vitamin B Complex w/Vitamin C Tab PO SCH (08:25)
[2019-02-17] MEDS: Lactulose 10 Gm/15 mL 30mL UDC PO SCH ×2 (08:25→16:18)
[2019-02-17] MEDS ORDERED: Non-Formulary Item 1 EA (Amino Acids/Protein Hydrolys [Pro-Stat Sugar Free Liquid] 30 ML) PO SCH (09:00)
[2019-02-17] MEDS: D5-0.45NS w/20 mEq KCL 1,000 ML IV SCH (16:59)
[2019-02-17] MEDS: Atorvastatin Calcium 10 MG TAB PO SCH (20:49)
--- NOTE | 2019-02-17 21:07 | Internal Medicine Prog Note ---
Internal Medicine Subjective - Subjective Service Date: 02/17/19 Patient seen and examined:: with staff Patient is:: awake, verbal, in bed, talking Per staff patient has:: no adverse event Internal Medicine Objective - Results Result Diagrams: 02/16/19 04:42 02/16/19 04:42 Recent Labs: Laboratory Last Values WBC 6.2 Th/cmm (4.8-10.8) 02/16/19 04:42 RBC 3.60 Mil/cmm (4.30-5.70) L 02/16/19 04:42 Hgb 9.7 gm/dL (12-16) L 02/16/19 04:42 Hct 29.8 % (41.0-60) L 02/16/19 04:42 MCV 82.8 fl (80-99) 02/16/19 04:42 MCH 27.0 pg (26.0-30.0) 02/16/19 04:42 MCHC Differential 32.5 pg (28.0-36.0) 02/16/19 04:42 RDW 15.9 % (11.5-20.0) 02/16/19 04:42 Plt Count 421 Th/cmm (150-400) H 02/16/19 04:42 MPV 6.9 fl 02/16/19 04:42 Neutrophils % 56.0 % (40.0-80.0) 02/16/19 04:42 Lymphocytes % 29.6 % (20.0-50.0) 02/16/19 04:42 Monocytes % 11.4 % (2.0-10.0) H 02/16/19 04:42 Eosinophils % 2.3 % (0.0-5.0) 02/16/19 04:42 Basophils % 0.7 % (0.0-2.0) 02/16/19 04:42 PT 9.9 SECONDS (9.5-11.5) 02/15/19 21:00 INR 0.95 (0.5-1.4) 02/15/19 21:00 PTT (Actin FS) 27.4 SECONDS (26.0-38.0) 02/15/19 21:00 Sodium 134 mEq/L (136-145) L 02/16/19 04:42 Potassium 4.4 mEq/L (3.5-5.1) 02/16/19 04:42 Chloride 102 mEq/L (98-107) 02/16/19 04:42 Carbon Dioxide 22.4 mEq/L (21.0-31.0) 02/16/19 04:42 Anion Gap 14.0 (7.0-16.0) 02/16/19 04:42 BUN 31 mg/dL (7-25) H 02/16/19 04:42 Creatinine 2.2 mg/dL (0.7-1.3) H 02/16/19 04:42 Est GFR ( Amer) 39.6 ml/min (>90) 02/16/19 04:42 Est GFR (Non-Af Amer) 32.7 ml/min 02/16/19 04:42 BUN/Creatinine Ratio 14.1 02/16/19 04:42 Glucose 93 mg/dL (70-105) 02/16/19 04:42 POC Glucose 84 MG/DL (70 - 105) 02/17/19 20:38 Calcium 9.5 mg/dL (8.6-10.3) 02/16/19 04:42 Total Bilirubin 0.3 mg/dL (0.3-1.0) 02/15/19 21:00 AST 17 U/L (13-39) 02/15/19 21:00 ALT 13 U/L (7-52) 02/15/19 21:00 Alkaline Phosphatase 113 U/L (34-104) H 02/15/19 21:00 Total Protein 7.5 gm/dL (6.0-8.3) 02/15/19 21:00 Albumin 4.5 gm/dL (4.2-5.5) 02/15/19 21:00 Globulin 3.0 gm/dL 02/15/19 21:00 Albumin/Globulin Ratio 1.5 (1.0-1.8) 02/15/19 21:00 Urine Source RANDOM 02/15/19 20:22 Urine Color YELLOW 02/15/19 20:22 Urine Clarity CLEAR (CLEAR) 02/15/19 20:22 Urine pH 5.5 (4.6 - 8.0) 02/15/19 20:22 Ur Specific [place] <= 1.005 (1.005-1.030) 02/15/19 20:22 Urine Protein NEGATIVE mg/dL (NEGATIVE) 02/15/19 20:22 Urine Glucose (UA) NEGATIVE mg/dL (NEGATIVE) 02/15/19 20:22 Urine Ketones NEGATIVE mg/dL (NEGATIVE) 02/15/19 20:22 Urine Blood NEGATIVE (NEGATIVE) 02/15/19 20:22 Urine Nitrate NEGATIVE (NEGATIVE) 02/15/19 20:22 Urine Bilirubin NEGATIVE (NEGATIVE) 02/15/19 20:22 Urine Urobilinogen 0.2 E.U./dL (0.2 - 1.0) 02/15/19 20:22 Ur Leukocyte Esterase NEGATIVE (NEGATIVE) 02/15/19 20:22 Urine RBC NONE SEEN /hpf (0-5) 02/15/19 20:22 Urine WBC 0-2 /hpf (0-5) 02/15/19 20:22 Ur Epithelial Cells OCCASIONAL /lpf (FEW) 02/15/19 20:22 Urine Bacteria FEW /hpf (NONE SEEN) 02/15/19 20:22 Phenytoin < 2.5 ug/ml (10.0-20.0) L 02/15/19 21:00 Phenobarbital Cancelled 02/15/19 21:00 - Physical Exam Vitals and I&O: Vital Signs Temp 98.9 F 02/17/19 16:00 Pulse 77 02/17/19 20:51 Resp 19 02/17/19 16:00 BP 110/59 02/17/19 20:51 Pulse Ox 98 02/17/19 16:00 Intake & Output 02/17/19 02/17/19 02/18/19 06:59 18:59 06:59 Intake Total 1994 3879 Output Total 5250 4000 Balance -3255 -120 Weight (lbs) 84.822 kg 81.647 kg Intake: Intake, IV Amount 995 1000 D5-0.45NS w/20 mEq KCL 1, 995 1000 000 ml @ 50 mls/hr IV . Q20H [facility] Rx#:[id number] Oral 1000 2880 Output: Urine 5250 4000 Other: # Bowel Movements 1 Weight Source Bedscale Bedscale Active Medications: Current Medications Amlodipine Besylate (Norvasc) 10 mg PO DAILY [facility] Stop: 04/18/19 08:59 Last Admin: 02/17/19 08:24 Dose: 10 mg Atorvastatin Calcium (Lipitor) 10 mg PO [facility]; Protocol Stop: 04/18/19 20:59 Last Admin: 02/17/19 20:49 Dose: 10 mg Clozapine (Clozaril) 200 mg PO HS [facility]; Protocol Stop: 04/18/19 20:59 Clozapine (Clozaril) 50 mg PO BID [facility] Stop: 04/18/19 08:59 Dextrose (D50w) 50 ml IVP PRN PRN PRN Reason: BS below 70 & not tolerate po Stop: 04/17/19 21:19 Dextrose (Glutose 40%) 18.75 gm PO PRN PRN PRN Reason: BS below 70 & tolerate po Stop: 04/17/19 21:19 Docusate Sodium (Colace) 250 mg PO DAILY [facility] Stop: 04/18/19 08:59 Last Admin: 02/17/19 08:23 Dose: 250 mg Epoetin Pankaj (Epogen) 10,000 units SUBQ QSAT [facility] Stop: 04/17/19 21:14 Last Admin: 02/16/19 22:10 Dose: Not Given Ferrous Sulfate (Iron) 325 mg PO DAILY [facility] Stop: 04/18/19 08:59 Last Admin: 02/17/19 08:24 Dose: 325 mg Fludrocortisone Acetate (Florinef) 0.1 mg PO DAILY [facility] Stop: 04/18/19 08:59 Last Admin: 02/17/19 08:25 Dose: 0.1 mg Gemfibrozil (Lopid) 600 mg PO BID [facility] Stop: 04/18/19 08:59 Last Admin: 02/17/19 16:16 Dose: 600 mg Glipizide (Glucotrol) 5 mg PO DAILY [facility] Stop: 04/18/19 08:59 Last Admin: 02/17/19 08:24 Dose: 5 mg Glucagon (Glucagen) 1 mg IM PRN PRN PRN Reason: BS below 70&dextrose ineffecti Stop: 04/17/19 21:19 Haloperidol (Haldol) 10 mg PO DAILY [facility]; Protocol Stop: 04/18/19 08:59 Last Admin: 02/17/19 08:25 Dose: 10 mg Hydralazine HCl (Apresoline) 25 mg PO TID [facility] Stop: 04/18/19 08:59 Last Admin: 02/17/19 20:51 Dose: 25 mg Potassium Chloride/Dextrose/Sod Cl (D5-0.45ns W/20 Meq Kcl) 1,000 mls @ 50 mls/ hr IV .Q20H [facility] Stop: 04/17/19 00:59 Last Admin: 02/17/19 16:59 Dose: 50 mls/hr Insulin Human Lispro (Humalog Insulin Sliding Scale) 0 units SUBQ ACHS [facility]; Protocol Stop: 04/18/19 07:29 Last Admin: 02/17/19 20:53 Dose: Not Given Lactulose (Cephulac) 30 gm PO BID [facility] Stop: 04/18/19 08:59 Last Admin: 02/17/19 16:18 Dose: 30 gm Levetiracetam (Keppra) 500 mg PO BID [facility] Stop: 04/17/19 08:59 Last Admin: 02/17/19 16:16 Dose: 500 mg Magnesium Hydroxide (Milk Of Magnesia) 30 ml PO HS PRN PRN Reason: Constipation Stop: 04/17/19 21:13 Metoprolol Tartrate (Lopressor) 25 mg PO BID [facility] Stop: 04/18/19 08:59 Last Admin: 02/17/19 16:16 Dose: 25 mg Phenytoin (Dilantin) 100 mg PO BID [facility] Stop: 04/17/19 08:59 Last Admin: 02/17/19 16:16 Dose: 100 mg Trazodone HCl (Desyrel) 25 mg PO HS [facility]; Protocol Stop: 04/18/19 20:59 Last Admin: 02/17/19 20:49 Dose: 25 mg Vitamin B Complex/Vit C/Folic Acid (Vitamin B Complex W/Vitamin C) 1 tab PO DAILY [facility] Stop: 04/18/19 08:59 Last Admin: 02/17/19 08:25 Dose: 1 tab General: alert HEENT: NC/AT, PERRLA, EOMI, anicteric sclerae, throat clear Neck: Supple, No JVD, No thyromegaly, +2 carotid pulse wo bruit, No LAD Lungs: CTAB Cardiovascular: RRR, Normal S1, Normal S2, without murmur Abdomen: soft, non-tender, non-distended Extremities: clear Neurological: no change Internal Medicine Assmt/Plan - Assessment Assessment: 1.UTI. 2.DEHYDRATION. 3.METABOLIC ENCEPHALOPATHY. 5.SEIZURE DISORDER. 6.SCHIZOPHRENIA. - Plan Plan: CONTINUE ON CURRENT MEDICATION AND DIET.
[2019-02-18] MEDS: INSULIN LISPRO SLIDING SCALE 100 UNITS/ML UNIT SUBQ SCH ×4 (06:33→20:38)
[2019-02-18] MEDS: Vitamin B Complex w/Vitamin C Tab PO SCH (08:59)
[2019-02-18] MEDS: Ferrous Sulfate 325 MG TAB PO SCH (08:59)
[2019-02-18] MEDS: Lactulose 10 Gm/15 mL 30mL UDC PO SCH ×2 (09:00→17:24)
[2019-02-18] MEDS: D5-0.45NS w/20 mEq KCL 1,000 ML IV SCH (15:06)
--- NOTE | 2019-02-18 19:21 | Consultation ---
DATE OF CONSULTATION: 02/18/2019 UROLOGY CONSULT The patient is seen for retention and need for suprapubic catheter. HISTORY OF PRESENT ILLNESS: This is a 58-year-old gentleman who was referred for elective placement of a suprapubic catheter having Pardo catheter for chronic retention. If I remember correctly I have seen him in the past, but medical record does not indicate this and my notes are missing. The nurse did confirm that he had a TURP before and that catheter was removed by somebody and the hole was closed and because of this, a Pardo was placed. I have followed records in my file showing I have seen him in September and did a TURP on 10/30. I recall putting a suprapubic tube in him and subsequently this became nonfunctional for multiple reasons, mostly patient being very uncooperative, difficult to manage from psychosis and nursing issues as well as they did not restrain him and he kept pulling on the catheter. Ultimately, I decided not to operate on him again and referred him to a tertiary center. He now comes back for the same problem having a neurogenic bladder from diabetes and multiple anticholinergics type medications for his psychosis. His home medications are amlodipine, clozapine, Colace, Epogen, Lasix, magnesium hydroxide, potassium chloride, trazodone, Lipitor, iron, Florinef, Lopid, glipizide, Haldol, Apresoline, insulin, lactulose, Keppra, Lopressor, Dilantin. ALLERGIES: None. REVIEW OF SYSTEMS: The patient admitted for altered level of consciousness, weakness and confusion. He was diagnosed as having urinary tract infection and metabolic encephalopathy and treated accordingly. No fever or chills. No headache or seizures. No chest pain, coughing or shortness of breath. No vomiting or diarrhea. MEDICAL HISTORY: Consists of hypertension, diabetes, hyperlipidemia, seizure disorder, psychosis, and chronic renal disease. ALLERGIES: None. PHYSICAL EXAMINATION: VITAL SIGNS: Blood pressure 137/72, heart rate 76, temperature 97.3. No fever recorded in the hospital so far. HEAD AND NECK: Normocephalic. Trachea central. Pupils equal and reactive. No jaundice. Thyroid and lymph nodes not palpable. Carotid bruit absent. CHEST: Symmetrical. LUNGS: Clear. No rales or rhonchi. HEART: Sounds normal in sinus rhythm, no murmur. ABDOMEN: Soft, nontender, no organomegaly, mass, or hernia. Pardo catheter in place draining clear urine. NEUROLOGIC: Nonfocal, but altered level of consciousness from psychosis. LABORATORY DATA: White count 6.2, has not been elevated here so far. Hemoglobin 9.7, chronic anemia by history. Coag panel unremarkable. Sodium 134. Electrolytes normal. BUN 31, creatinine 2.2, up from 1.3 last year. Urine was clear on exam and no cultures are done. IMPRESSION: Chronic retention, needs a Pardo or suprapubic catheter. He is not a good candidate for suprapubic from last experience where he put it out many times and creates severe complications and problems requiring multiple surgeries. Technically also from the multiple procedures before, there will be adhesions to deal and the procedure will be difficult. It may be best to have Interventional Radiology do this under CT and fluoroscopy guidance percutaneously to minimize the risks. Meanwhile, the Pardo catheter is functioning well and is not posing any significant problems. It should be changed every month and irrigated every 2 days with a saline and a syringe using at least 300 mL of normal saline that will minimize the risk of infections as well. JOB# [id number]
--- NOTE | 2019-02-18 19:36 | Internal Medicine Prog Note ---
Internal Medicine Subjective - Subjective Service Date: 02/18/19 Patient seen and examined:: without staff (HE FEELS WELL.HE WAS SEEN BY UROLOGEST AND SUGEST TO DO SUPRA PUBIC CATH OUT PATIENT.) Patient is:: awake, verbal, in bed, talking Per staff patient has:: no adverse event Internal Medicine Objective - Results Result Diagrams: 02/16/19 04:42 02/16/19 04:42 Recent Labs: Laboratory Last Values WBC 6.2 Th/cmm (4.8-10.8) 02/16/19 04:42 RBC 3.60 Mil/cmm (4.30-5.70) L 02/16/19 04:42 Hgb 9.7 gm/dL (12-16) L 02/16/19 04:42 Hct 29.8 % (41.0-60) L 02/16/19 04:42 MCV 82.8 fl (80-99) 02/16/19 04:42 MCH 27.0 pg (26.0-30.0) 02/16/19 04:42 MCHC Differential 32.5 pg (28.0-36.0) 02/16/19 04:42 RDW 15.9 % (11.5-20.0) 02/16/19 04:42 Plt Count 421 Th/cmm (150-400) H 02/16/19 04:42 MPV 6.9 fl 02/16/19 04:42 Neutrophils % 56.0 % (40.0-80.0) 02/16/19 04:42 Lymphocytes % 29.6 % (20.0-50.0) 02/16/19 04:42 Monocytes % 11.4 % (2.0-10.0) H 02/16/19 04:42 Eosinophils % 2.3 % (0.0-5.0) 02/16/19 04:42 Basophils % 0.7 % (0.0-2.0) 02/16/19 04:42 PT 9.9 SECONDS (9.5-11.5) 02/15/19 21:00 INR 0.95 (0.5-1.4) 02/15/19 21:00 PTT (Actin FS) 27.4 SECONDS (26.0-38.0) 02/15/19 21:00 Sodium 134 mEq/L (136-145) L 02/16/19 04:42 Potassium 4.4 mEq/L (3.5-5.1) 02/16/19 04:42 Chloride 102 mEq/L (98-107) 02/16/19 04:42 Carbon Dioxide 22.4 mEq/L (21.0-31.0) 02/16/19 04:42 Anion Gap 14.0 (7.0-16.0) 02/16/19 04:42 BUN 31 mg/dL (7-25) H 02/16/19 04:42 Creatinine 2.2 mg/dL (0.7-1.3) H 02/16/19 04:42 Est GFR ( Amer) 39.6 ml/min (>90) 02/16/19 04:42 Est GFR (Non-Af Amer) 32.7 ml/min 02/16/19 04:42 BUN/Creatinine Ratio 14.1 02/16/19 04:42 Glucose 93 mg/dL (70-105) 02/16/19 04:42 POC Glucose 106 MG/DL (70 - 105) H 02/18/19 16:54 Calcium 9.5 mg/dL (8.6-10.3) 02/16/19 04:42 Total Bilirubin 0.3 mg/dL (0.3-1.0) 02/15/19 21:00 AST 17 U/L (13-39) 02/15/19 21:00 ALT 13 U/L (7-52) 02/15/19 21:00 Alkaline Phosphatase 113 U/L (34-104) H 02/15/19 21:00 Total Protein 7.5 gm/dL (6.0-8.3) 02/15/19 21:00 Albumin 4.5 gm/dL (4.2-5.5) 02/15/19 21:00 Globulin 3.0 gm/dL 02/15/19 21:00 Albumin/Globulin Ratio 1.5 (1.0-1.8) 02/15/19 21:00 Urine Source RANDOM 02/15/19 20:22 Urine Color YELLOW 02/15/19 20:22 Urine Clarity CLEAR (CLEAR) 02/15/19 20:22 Urine pH 5.5 (4.6 - 8.0) 02/15/19 20:22 Ur Specific [place] <= 1.005 (1.005-1.030) 02/15/19 20:22 Urine Protein NEGATIVE mg/dL (NEGATIVE) 02/15/19 20:22 Urine Glucose (UA) NEGATIVE mg/dL (NEGATIVE) 02/15/19 20:22 Urine Ketones NEGATIVE mg/dL (NEGATIVE) 02/15/19 20:22 Urine Blood NEGATIVE (NEGATIVE) 02/15/19 20:22 Urine Nitrate NEGATIVE (NEGATIVE) 02/15/19 20:22 Urine Bilirubin NEGATIVE (NEGATIVE) 02/15/19 20:22 Urine Urobilinogen 0.2 E.U./dL (0.2 - 1.0) 02/15/19 20:22 Ur Leukocyte Esterase NEGATIVE (NEGATIVE) 02/15/19 20:22 Urine RBC NONE SEEN /hpf (0-5) 02/15/19 20:22 Urine WBC 0-2 /hpf (0-5) 02/15/19 20:22 Ur Epithelial Cells OCCASIONAL /lpf (FEW) 02/15/19 20:22 Urine Bacteria FEW /hpf (NONE SEEN) 02/15/19 20:22 Phenytoin < 2.5 ug/ml (10.0-20.0) L 02/15/19 21:00 Phenobarbital Cancelled 02/15/19 21:00 - Physical Exam Vitals and I&O: Vital Signs Temp 98.1 F 02/18/19 16:03 Pulse 76 02/18/19 17:23 Resp 19 02/18/19 16:03 BP 130/68 02/18/19 17:23 Pulse Ox 96 02/18/19 16:03 Intake & Output 02/18/19 02/18/19 02/19/19 06:59 18:59 06:59 Intake Total 500 4000 Output Total 2800 5500 Balance -2300 -1500 Weight (lbs) 81.647 kg 81.647 kg Intake: Intake, IV Amount 1000 D5-0.45NS w/20 mEq KCL 1, 1000 000 ml @ 50 mls/hr IV . Q20H [facility] Rx#:[id number] Oral 500 3000 Output: Urine 2800 5500 Other: # Bowel Movements 1 Weight Source Bedscale Bedscale Active Medications: Current Medications Amlodipine Besylate (Norvasc) 10 mg PO DAILY [facility] Stop: 04/18/19 08:59 Last Admin: 02/18/19 09:04 Dose: 10 mg Atorvastatin Calcium (Lipitor) 10 mg PO HS [facility]; Protocol Stop: 04/18/19 20:59 Last Admin: 02/17/19 20:49 Dose: 10 mg Clozapine (Clozaril) 200 mg PO HS [facility]; Protocol Stop: 04/18/19 20:59 Clozapine (Clozaril) 50 mg PO BID [facility] Stop: 04/18/19 08:59 Last Admin: 02/18/19 17:23 Dose: 50 mg Dextrose (D50w) 50 ml IVP PRN PRN PRN Reason: BS below 70 & not tolerate po Stop: 04/17/19 21:19 Dextrose (Glutose 40%) 18.75 gm PO PRN PRN PRN Reason: BS below 70 & tolerate po Stop: 04/17/19 21:19 Last Admin: 02/18/19 12:29 Dose: 18.75 gm Docusate Sodium (Colace) 250 mg PO DAILY [facility] Stop: 04/18/19 08:59 Last Admin: 02/18/19 08:58 Dose: 250 mg Epoetin Pankaj (Epogen) 10,000 units SUBQ QSAT [facility] Stop: 04/17/19 21:14 Last Admin: 02/16/19 22:10 Dose: Not Given Ferrous Sulfate (Iron) 325 mg PO DAILY [facility] Stop: 04/18/19 08:59 Last Admin: 02/18/19 08:59 Dose: 325 mg Fludrocortisone Acetate (Florinef) 0.1 mg PO DAILY [facility] Stop: 04/18/19 08:59 Last Admin: 02/18/19 08:59 Dose: 0.1 mg Gemfibrozil (Lopid) 600 mg PO BID [facility] Stop: 04/18/19 08:59 Last Admin: 02/18/19 17:22 Dose: 600 mg Glipizide (Glucotrol) 5 mg PO DAILY [facility] Stop: 04/18/19 08:59 Last Admin: 02/18/19 08:58 Dose: 5 mg Glucagon (Glucagen) 1 mg IM PRN PRN PRN Reason: BS below 70&dextrose ineffecti Stop: 04/17/19 21:19 Haloperidol (Haldol) 10 mg PO DAILY [facility]; Protocol Stop: 04/18/19 08:59 Last Admin: 02/18/19 08:58 Dose: 10 mg Hydralazine HCl (Apresoline) 25 mg PO TID [facility] Stop: 04/18/19 08:59 Last Admin: 02/18/19 13:55 Dose: 25 mg Potassium Chloride/Dextrose/Sod Cl (D5-0.45ns W/20 Meq Kcl) 1,000 mls @ 50 mls/ hr IV .Q20H [facility] Stop: 04/17/19 00:59 Last Admin: 02/18/19 15:06 Dose: 50 mls/hr Insulin Human Lispro (Humalog Insulin Sliding Scale) 0 units SUBQ ACHS [facility]; Protocol Stop: 04/18/19 07:29 Last Admin: 02/18/19 12:07 Dose: Not Given Lactulose (Cephulac) 30 gm PO BID [facility] Stop: 04/18/19 08:59 Last Admin: 02/18/19 17:24 Dose: 30 gm Levetiracetam (Keppra) 500 mg PO BID [facility] Stop: 04/17/19 08:59 Last Admin: 02/18/19 17:22 Dose: 500 mg Magnesium Hydroxide (Milk Of Magnesia) 30 ml PO HS PRN PRN Reason: Constipation Stop: 04/17/19 21:13 Metoprolol Tartrate (Lopressor) 25 mg PO BID [facility] Stop: 04/18/19 08:59 Last Admin: 02/18/19 17:23 Dose: 25 mg Phenytoin (Dilantin) 100 mg PO BID [facility] Stop: 04/17/19 08:59 Last Admin: 02/18/19 17:22 Dose: 100 mg Quetiapine Fumarate (Seroquel) 100 mg PO HS [facility]; Protocol Stop: 04/19/19 20:59 Trazodone HCl (Desyrel) 25 mg PO HS [facility]; Protocol Stop: 04/18/19 20:59 Last Admin: 02/17/19 20:49 Dose: 25 mg Vitamin B Complex/Vit C/Folic Acid (Vitamin B Complex W/Vitamin C) 1 tab PO DAILY [facility] Stop: 04/18/19 08:59 Last Admin: 02/18/19 08:59 Dose: 1 tab General: alert HEENT: NC/AT, PERRLA, EOMI, anicteric sclerae, throat clear Neck: Supple, No JVD, No thyromegaly, +2 carotid pulse wo bruit, No LAD Lungs: CTAB Cardiovascular: RRR, Normal S1, Normal S2, without murmur Abdomen: soft, non-tender, non-distended Extremities: clear Neurological: no change Internal Medicine Assmt/Plan - Assessment Assessment: 1.UTI. 2.DEHYDRATION. 3.METABOLIC ENCEPHALOPATHY. 5.SEIZURE DISORDER. 6.SCHIZOPHRENIA. - Plan Plan: CONTINUE ON CURRENT MEDICATION AND DIET.
[2019-02-18] MEDS: Atorvastatin Calcium 10 MG TAB PO SCH (20:42)
--- NOTE | 2019-02-19 00:27 | Progress Notes ---
DATE: 02/18/2019 SUBJECTIVE: Chart was reviewed and the patient interviewed. Also discussed the patient's condition with the staff and reviewed records and labs. The patient continued to be manicky and continued to be hyperverbal. The patient also is suspicious and paranoid. The patient is pacing up and down the unit, talking to himself and in a confused state. He also still needs lots of redirections. The patient also is talking about imagining the people. On the other hand, no behavioral problems, but he is just confused and restless and needs lots of redirections. ASSESSMENT: The patient is still psychotic and still needs close monitoring. TREATMENT PLAN: Continue monitoring his behavior. Also, continue Clozaril. Also, we will try to evaluate his possibility of admitting to [facility] because of his psychosis. Also, we will Seroquel in a dose of 100 mg at bedtime and we will continue to follow up. JOB# [id number]
[2019-02-19] MEDS: INSULIN LISPRO SLIDING SCALE 100 UNITS/ML UNIT SUBQ SCH ×2 (06:34→11:44)
[2019-02-19] MEDS: Vitamin B Complex w/Vitamin C Tab PO SCH (08:13)
[2019-02-19] MEDS: Ferrous Sulfate 325 MG TAB PO SCH (08:15)
[2019-02-19] MEDS: D5-0.45NS w/20 mEq KCL 1,000 ML IV SCH (08:16)
[2019-02-19] MEDS: Lactulose 10 Gm/15 mL 30mL UDC PO SCH (08:17)
--- NOTE | 2019-02-19 12:48 | Progress Notes ---
DATE: 02/19/2019 SUBJECTIVE: Chart was reviewed and the patient interviewed. Also discussed the patient's condition with the staff and reviewed records and labs. The patient seems to be slightly calmer than before. Also, less irritable and less agitated. The patient also is interacting slightly more and seems to be not pacing as much. The patient also is compliant with taking his medications with no side effects of medications. ASSESSMENT: The patient is less psychotic. TREATMENT PLAN: Continue current medications and continue to follow up closely. [facility]# [id number]
--- NOTE | 2019-02-19 14:46 | Discharge Summary ---
DATE OF DISCHARGE: 02/19/2019 FINAL DIAGNOSES: 1. Metabolic encephalopathy. 2. Urinary tract infection. 3. Hyponatremia. 4. Diabetes mellitus. 5. Seizure disorder. 6. Anemia. 7. Obstructive uropathy. REVIEW OF HISTORY: The patient is a 58-year-old male with long history of diabetes mellitus, seizure disorder, bladder dysfunction, benign prostatic hypertrophy, presented to the Emergency Room with severe confusion and abdominal pain, evaluated by the ER physician. Initial workup was significant for metabolic encephalopathy, urinary tract infection, hyponatremia. The patient admitted to the hospital, started on IV fluid antibiotics. PHYSICAL EXAMINATION: VITAL SIGNS: Temperature 97.6, heart rate 72, blood pressure 136/79. CHEST: Clear to auscultation. ABDOMEN: Soft, bowel sounds positive. NEUROLOGIC: Awake, confused. LABORATORY DATA: White blood cell 7.3, hemoglobin 7.9. Sodium 128, potassium 4, BUN 31. COURSE OF HOSPITALIZATION: During hospitalization, the patient improved clinically and was seen by urologist and he suggests to have the suprapubic catheter to be placed as outpatient and to continue on the antibiotic. On 02/17/2019, the patient was feeling better, no fever, no chills, no nausea, no vomiting. On 02/18/2019, his temperature is 98, heart rate 88, blood pressure 122/60. On 02/19/2019, temperature 98.1, heart rate 83. Chest is clear to auscultation. Abdomen is soft, bowel sounds positive. DISPOSITION: The patient was transferred back to [place] to continue his medication and diet. Follow up with the urologist as outpatient. CONDITION ON DISCHARGE: Stable. MEDICATIONS: Follow discharge reconciliation. [facility]# [id number]
== END 2019-02-19 16:39 | DRG 689 ==
LOC: ER 19:37 → MSI 23:14
PROVIDERS: ADMIT Family Medicine; ATTEND Family Medicine
DX: N39.0 Urinary tract infection, site not specified (principal); G93.41 Metabolic encephalopathy; E87.1 Hypo-osmolality and hyponatremia; F23 Brief psychotic disorder; E11.9 Type 2 diabetes mellitus without complications; G40.909 Epilepsy, unspecified, not intractable, without status epilepticus; D64.9 Anemia, unspecified; N13.9 Obstructive and reflux uropathy, unspecified; N40.0 Benign prostatic hyperplasia without lower urinary tract symptoms; E78.5 Hyperlipidemia, unspecified; N40.1 Benign prostatic hyperplasia with lower urinary tract symptoms; R33.9 Retention of urine, unspecified; F03.90 Unspecified dementia, unspecified severity, without behavioral disturbance, psychotic disturbance, mood disturbance, and anxiety
CPT/HCPCS: 36415-UA; 80048-TC; 80053-TC; 80185-TC; 81001-TC; 82948-90; 85025-TC; 85610-TC; 90784; J0885; Z7610